=== PATIENT | female | born 1960 | race Caucasian/White ===

== ENCOUNTER 2022-09-14 13:54 | Inpatient (IN) | payer OTHER, SELFPAY ==
[2022-09-14] VITALS (49 sets, daily range): BP systolic 101–180; BP diastolic 68–140; PULSE 66–103; RESP 15–83; TEMP 36.3–36.6; O2SAT 68–100; BMI 33.2
--- NOTE | ~2022-09-14 | US_ITS ---
EXAMINATION: US right upper quadrant DATE: 09/14/2022 14:36 INDICATION: Right upper quadrant abdominal pain TECHNIQUE: Multiple grayscale and Doppler ultrasound images of the abdomen were obtained. COMPARISON: CT abdomen and pelvis dated 07/28/2017 FINDINGS: The visualized portion of the pancreatic body appears normal. The majority of the pancreas including the head and tail are obscured. Liver has normal echogenicity and contour, with a smooth surface. No liver lesion identified. No intrahepatic biliary duct dilation suspected. Portal venous flow was seen in the hepatopetal, normal direction and has normal Doppler waveform. Visualized proximal inferior v rhona cava is normal. There is a small amount of non shadowing hypoechoic sludge in the dependent aspec t of the otherwise normal and nondilated gallbladder. There is no shadowing cholelithiasis. The commo n bile duct measures 4-5 mm, which is normal. Sonographic Strickland sign was reported as negative by the product marketing coordinator. IMPRESSION: 1. Small amount of gallbladder sludge without shadowing cholelithiasis. Otherwise unremarkable right upper quadrant ultrasound. Reviewed, dictated and finalized at location A. IMPRESSION: 1. Small amount of gallbladder sludge without shadowing cholelithiasis. Otherwi se unremarkable right upper quadrant ultrasound.
--- NOTE | ~2022-09-14 | XR_ITS ---
EXAMINATION: XR chest 2V DATE: 09/14/2022 14:49 INDICATION: Cough TECHNIQUE: Frontal and lateral views of the chest are obtained COMPARISON: 08/25/2018 FINDINGS: There is a mild diffuse interstitial pattern. No pleural effusion or pneumothorax. The card iomediastinal silhouette is normal. There is mild thoracic spondylosis. IMPRESSION: 1. Mild diffuse interstitial pattern which could reflect mild pulmonary edema. Reviewed, dictated and finalized at location B.
--- NOTE | 2022-09-14 14:01 | ED.ABDPAIN ---
HPI - Abdominal Pain General Chief Complaint: Abdominal Pain Stated Complaint: upper abdominal pain and low Sp02 Time Seen by Provider: 09/14/22 14:01 Source: patient, EMS and RN notes reviewed Mode of arrival: EMS Limitations: no limitations History of Present Illness HPI narrative: patient brought in by ambulance with complaints of right upper quadrant abdominal pain it has been intermittent for several weeks. She thinks she is having a gallbladder attack. She appears to be in respiratory distress. She says that she has not been to a doctor in several years continues to smoke at least 1 pack per day. MD elicited complaint: abdominal pain Pertinent past history: constipation Onset (ago): week(s) Pain Consistency: intermittent Location: RUQ Severity: moderate Quality: cramping, aching and dull Radiation: none Migration to: no migration Exacerbating factors: eating Relieving factors: nothing Context: confirms history of similar episodes Associated symptoms: denies other symptoms Related Data Home Medications Medication Instructions Recorded Confirmed No Home Medications 09/14/22 09/14/22 Allergies Allergy/AdvReac Type Severity Reaction Status Date / Time No Known Allergies Allergy Verified 09/14/22 14:12 Review of Systems Review of Systems: All systems reviewed & are unremarkable except as noted in HPI and below Respiratory: Respiratory: Reports cough and Reports dyspnea ( she says been going on for months) PMFSH Past Medical History Medical History (Updated 09/14/22 @ 16:48 by Santhosh Castellanos MD) No active medical problems Surgical History Surgical History (Updated 09/14/22 @ 14:14 by Santhosh Castellanos MD) Bowel obstruction History of appendectomy Social History Social History (Updated 09/14/22 @ 14:14 by Santhosh Castellanos MD) Smoking packs per day: 1 Smoking cigarettes per day: 20.0 Smoking status: Current every day smoker Tobacco type: cigarettes Second hand tobacco smoke exposure: Yes Alcohol intake: never Substance use: never Substance use type: does not use Lack of Transportation: No Lack of Food: Never True Current Housing: I Have Housing Concerned About Future Housing: No Difficulty Paying Gas/Electric Bills: No Difficulty Paying for Meds: No Currently Unemployed: No Education: Trade/Vocational Certificate Difficulty w/ Childcare or Family Care: No Spiritual care concerns: No Exam Const: General: healthy appearing, no acute distress and alert Nutritional Appearance: well nourished Orientation/consciousness: patient oriented x3 HENMT: Head: normal to inspection Ears: external ears normal Face/Nose/Sinus: Normal external nose present Face and sinus: normal facial exam Mouth: Yes moist mucous membranes Eyes: Conjunctivae: conjunctivae normal Pupils: Equal, round and reactive pupils present EOM: EOMs intact bilaterally Neck: Neck: normal visual inspection Resp: Effort & Inspection: tachypneic Auscultation: diminished lung sounds ( short air exchange due to cough) Cardio: Rate: regular rate Rhythm: regular rhythm GI: GI Palp: Yes Soft to palpation, Yes Tenderness to palpation present (GI) ( moderate right upper quadrant positive Strickland sign) and Yes Guarding due to palpation present (GI) ( moderate RUQ) Auscultation: normal bowel sounds Back/Spine/Pelvis: Cervical Spine: cervical ROM normal Thoracic/Lumbar Spine: thoraco-lumbar ROM normal Skin: General skin exam: normal color Rashes: no rashes Neuro: General: patient oriented x3, moves all extremities, no focal motor deficits and CN's II-XI intact bilaterally Speech: normal speech Gait exam (Neuro): Normal gait present Extrem: General: normal to inspection and no clubbing, cyanosis or edema Psych: Mental Status: mental status grossly normal Affect: normal affect Attitude: cooperative Course Course Emergency Course: patient given Solu-Medrol 125 mg, Lasix 50 mg, DuoNeb, s
[2022-09-14] MEDS: IPRATROPIUM 0.5 MG/ALBUTEROL SULFATE 2.5 MG AMPUL.NEB 3 ML INHALATION ×2 (14:56→18:39)
[2022-09-14 15:06] LABS: Basophils Absolute Auto 0.07 K/mm3 (0.00-0.10); Basophils Percent Auto 0.5 % (0.0-1.0); Eosinophils Absolute Auto 0.09 K/mm3 (0.02-0.50); Eosinophils Percent Auto 0.6 % (1.0-6.0); Hematocrit 50.4 % (35.0-49.0); Hemoglobin 16.1 g/dL (12.0-15.0); Immature Granulocyte Absolute 0.08 K/mm3 (0.00-0.00); Immature Granulocyte Percent A 0.5 % (0.0-0.0); Lymphocytes Absolute Auto 2.79 K/mm3 (1.10-4.50); Lymphocytes Percent Auto 18.6 % (18.0-42.0); Mean Corpuscular HGB Conc 31.9 g/dL (32.0-36.0); Mean Corpuscular Hemoglobin 32.3 pg (27.0-31.0); Mean Platelet Volume 9.8 fl (9.2-11.8); Monocytes Absolute Auto 1.57 K/mm3 (0.10-0.90); Monocytes Percent Auto 10.5 % (2.0-11.0); Neutrophils Absolute Auto 10.4 K/mm3 (1.7-7.2); Neutrophils Percent Auto 69.3 % (50.0-70.0); Platelet Count Result 335 K/mm3 (150-420); Red Blood Count 4.99 M/mm3 (4.20-5.40); Red Cell Distribution Width 13.7 % (11.6-14.4)
[2022-09-14 15:21] LABS: Alanine Aminotransferase 103 U/L (14-59); Albumin Level 3.2 g/dL (3.4-5.0); Alkaline Phosphatase 75 U/L (46-116); Anion Gap 6 mmol/L (8-16); Aspartate Amino Transferase 33 U/L (15-37); Bilirubin,Total 0.3 mg/dL (0.00-1.00); Blood Urea Nitrogen 17 mg/dL (7-18); Calcium 9.2 mg/dL (8.5-10.1); Carbon Dioxide 34 mmol/L (21-32); Chloride 101 mmol/L (98-108); Estimated Glomerular Filt Rate > 60; Glucose 110 mg/dL (70-99); Osmolality Calculated 294 mOsm/kg (285-295); Potassium 4.1 mmol/L (3.5-5.1); Sodium 141 mmol/L (136-145); Total Protein 7.7 g/dL (6.4-8.2)
[2022-09-14 15:30] LABS: Amylase 36 U/L (25-115); Lipase 19 U/L (16-77); NT Pro B Type Natriuretic Pept 1627 pg/mL (0-125)
[2022-09-14 15:39] LABS: Base Excess ABG -3.3 mmol/L (0-2); HCO3 ABG 27.5 mmol/L (23-29); Oxygen Content ABG 19.1 %vol (16.0-22.0); Oxygen Saturation ABG 87.9 % (95-97); Oxyhemoglobin 81.1 % (94-100); PCO2 ABG 74.9 mmHg (35-45); PO2 ABG 61.6 mmHg (80-90); Total Hemoglobin 16.8 g/dL (12.0-18.0); pH ABG 7.18 (7.35-7.45)
[2022-09-14 15:40] LABS: Device NASAL CANNULA; Modified Allen's Test Pass; Site Drawn RIGHT RADIAL
[2022-09-14] MEDS: FUROSEMIDE INJ 40 MG/4 ML VIAL 60 MG IV PUSH (16:43)
[2022-09-14] MEDS: methylPREDNISolone SOD SUCC 125 MG VIAL IV PUSH (17:05)
[2022-09-14 17:09] LABS: Base Excess ABG -0.4 mmol/L (0-2); HCO3 ABG 28.2 mmol/L (23-29); Oxygen Content ABG 20.3 %vol (16.0-22.0); Oxygen Saturation ABG 94.2 % (95-97); Oxyhemoglobin 87.5 % (94-100); PCO2 ABG 62.5 mmHg (35-45); PO2 ABG 74.9 mmHg (80-90); Total Hemoglobin 16.5 g/dL (12.0-18.0); pH ABG 7.27 (7.35-7.45)
[2022-09-14 17:10] LABS: Device BIPAP; Modified Allen's Test Pass; Site Drawn LEFT RADIAL
[2022-09-14 17:11] LABS: Expiratory Pressure 3 cmH2O; Inspiratory Pressure 1 cmH2O
--- NOTE | 2022-09-14 18:49 | ADMGEN ---
This patient, Jerri Og, was admitted to 2nd Floor Room 209-1. Patient/family oriented to hospital policies and general routines including ID bracelet, bed and alarms, visiting hours, pain management, procedures, bathroom and other care routines, personal items, smoking policy, room service/diet, and visiting hours. Information on how to activate the Rapid Response Team has been discussed. Patient/Family are encouraged to report perceived risks to care and to ask questions if they do not understand what they are told or what they should do.
--- NOTE | 2022-09-14 19:18 | PC.NURSE ---
pt's son has called multiple times and been verbally aggressive with nursing staff and recreation instructor staff, pt states he is most likely drunk and will be coming up to see her, pt and family are aware that if visitors are uncooperative or aggressive with staff they will be asked to leave, rt up to put pt back on bipap, brandie aware of sepsis screening and requests rt try to wean pt off bipap tonight if possible
--- NOTE | 2022-09-14 20:21 | PC.NURSE ---
Pt's son Angel is repeatedly calling to speak w/the pt about the condition of the pt's dog. This RN spoke w/Teresa, the pt's emergency contact, and the daughter stated the dog is fine, but is old. Angel may be calling to get the keys to the pt's truck per pt's daughter. Son is an alcoholic per family. Teresa stated if we have any issues w/ Angel to contact the police. The pt's daughter will be at the hospital in the morning and to contact her if any issues arise w/the pt.
[2022-09-14 21:25] LABS: Base Excess ABG 6.3 mmol/L (0-2); HCO3 ABG 36.5 mmol/L (23-29); Oxygen Content ABG 20.4 %vol (16.0-22.0); Oxygen Saturation ABG 92.5 % (95-97); Oxyhemoglobin 87.6 % (94-100); PO2 ABG 68.8 mmHg (80-90); Total Hemoglobin 16.6 g/dL (12.0-18.0); pH ABG 7.29 (7.35-7.45)
[2022-09-14 21:27] LABS: Device BIPAP; Modified Allen's Test Pass; Site Drawn LEFT RADIAL
--- NOTE | 2022-09-14 21:33 | PC.NURSE ---
This RN notified Emery Solis NP of pt's critical PCO2 level.
--- NOTE | 2022-09-14 21:49 | PC.NURSE ---
Emery Solis contacted [facility] to transfer pt. Weston is to receive report on pt from Dr. Castellanos, the MD who admitted pt earlier. ED staff notified that they will receive a call.
--- NOTE | 2022-09-14 22:02 | PC.NURSE ---
Pt's daughter Teresa has been notified of pt's status. Daughter informed this RN once we have further information to contact her.
--- NOTE | 2022-09-14 22:46 | PM.DS ---
DS: Admitting Diagnosis Discharge Date 09/14/2022 Admitting Diagnosis respiratory distress DS: Summary Hospital Course Reason for hospitalization: Patient came in for abdominal pain was admitted due to hypoxia. Patient is being transferred to [facility] . Pleases see Emergency room not as I have not see or accessed patient as she was transferred prior to my arrival. Hospital Course: hypoxia Time Spent with Patient Time attestation: Total time spent providing and/or coordinating discharge services: DS: Data Data Completed and Pending Labs on day of discharge: Labs from last 24 hours 09/14/22 09/14/22 09/14/22 21:23 16:57 15:35 WBC RBC Hgb Hct MCV MCH MCHC RDW Plt Count MPV Immature Gran % (Auto) Neut % (Auto) Lymph % (Auto) Jenkins % (Auto) Eos % (Auto) Baso % (Auto) Lymph # (Auto) Jenkins # (Auto) Eos # (Auto) Baso # (Auto) Abs Immat Gran (auto) Absolute Neuts (auto) Absolute Nucleated RBC Nucleated RBC % Puncture Site Left radial Left radial Right radial ABG pH 7.29 L 7.27 L 7.18 L ABG pCO2 78.0 H* 62.5 H 74.9 H* ABG pO2 68.8 L 74.9 L 61.6 L ABG PO2/FiO2 Ratio Not Reportable Not Reportable Not Reportable ABG HCO3 36.5 H 28.2 27.5 ABG O2 Saturation 92.5 L 94.2 L 87.9 L ABG O2 Content 20.4 20.3 19.1 ABG Base Excess 6.3 H -0.4 L -3.3 L A-a Gradient Not Reportable Not Reportable Not Reportable Oxyhemoglobin 87.6 L 87.5 L 81.1 L Total Hemoglobin 16.6 16.5 16.8 O2 Delivery Device Bipap Bipap Nasal cannula O2 Liters/Min Not Reportable 100.0 3.0 Expiratory Pressure Not Reportable 3 Inspiratory Pressure Not Reportable 1 Sodium Potassium Chloride Carbon Dioxide Anion Gap BUN Creatinine Estim Creat Clear Calc Estimated GFR Glucose Calculated Osmolality Calcium Magnesium Total Bilirubin AST ALT Alkaline Phosphatase C-Reactive Protein NT-Pro-B Natriuret Pep Total Protein Albumin Amylase Lipase 09/14/22 15:01 WBC 15.0 H RBC 4.99 Hgb 16.1 H Hct 50.4 H MCV 101.0 MCH 32.3 H MCHC 31.9 L RDW 13.7 Plt Count 335 MPV 9.8 Immature Gran % (Auto) 0.5 H Neut % (Auto) 69.3 Lymph % (Auto) 18.6 Jenkins % (Auto) 10.5 Eos % (Auto) 0.6 L Baso % (Auto) 0.5 Lymph # (Auto) 2.79 Jenkins # (Auto) 1.57 H Eos # (Auto) 0.09 Baso # (Auto) 0.07 Abs Immat Gran (auto) 0.08 H Absolute Neuts (auto) 10.4 H Absolute Nucleated RBC 0.00 Nucleated RBC % 0.0 Puncture Site ABG pH ABG pCO2 ABG pO2 ABG PO2/FiO2 Ratio ABG HCO3 ABG O2 Saturation ABG O2 Content ABG Base Excess A-a Gradient Oxyhemoglobin Total Hemoglobin O2 Delivery Device O2 Liters/Min Expiratory Pressure Inspiratory Pressure Sodium 141 Potassium 4.1 Chloride 101 Carbon Dioxide 34 H Anion Gap 6 L BUN 17 Creatinine 0.67 Estim Creat Clear Calc Not Reportable Estimated GFR > 60 Glucose 110 H Calculated Osmolality 294 Calcium 9.2 Magnesium 2.0 Total Bilirubin 0.3 AST 33 ALT 103 H Alkaline Phosphatase 75 C-Reactive Protein 5.0 H NT-Pro-B Natriuret Pep 1627 H Total Protein 7.7 Albumin 3.2 L Amylase 36 Lipase 19 Discharge Plan Discharge Attending physician on discharge: Maverick Ruggiero Consulting providers: Emery Solis; Misael Wells; Juan Arambula Discharging Clinician: Emery Solis Anticipated Discharge Date/Time: 09/14/22 22:44 Patient Disposition: Acute Care [facility] Discharge Instructions: Transfer to [facility] Respiratory distress Bipap Date of admission: 09/14/22 17:12 Primary Care Provider: Burton Charles Admitting Provider: Maverick Ruggiero Attending physician on admission: Maverick Ruggiero Condition: Serious
--- NOTE | 2022-09-14 22:56 | PC.NURSE ---
Report given to receiving RN, Aida, at [facility]. Aida LAGUERRE told this RN the pt is to be admitted to room 202 IMU at [place].
[2022-09-14] MEDS: methylPREDNISolone SOD SUCC 40 MG VIAL IV PUSH (23:05)
--- NOTE | 2022-09-15 00:25 | PC.NURSE ---
[facility] arrived at 00:05 09/15/2022 to [facility]. Pt's belongings including her glasses, phone, wallet, etc placed in pt belongings bag and given to pt for departure.
--- NOTE | 2022-09-15 00:30 | PC.NURSE ---
Pt's daughter, Teresa, notified of pt's departure to [facility] and was notified of the room number. Teresa verbalized appreciation of keeping her mother's condition current w/her.
[2022-09-15 00:33] VITALS: O2SAT 96
== END 2022-09-15 00:05 | disposition short-term general hospital (02) | DRG 144 ==
LOC: CHSED 16:48 → CHS2ND 17:21
PROVIDERS: Nurse Practitioner Family; Admitting Provider Internal Medicine; Emergency Provider Emergency Medicine; PCP Internal Medicine; Visit Provider Internal Medicine
DX: R10.10 Upper abdominal pain, unspecified (principal); K82.8 Other specified diseases of gallbladder; I50.9 Heart failure, unspecified; F17.210 Nicotine dependence, cigarettes, uncomplicated; R06.03 Acute respiratory distress; R09.02 Hypoxemia
CPT/HCPCS: 36415; 36600; 71046; 76705; 80053; 82150; 82805; 83690; 83735; 83880; 85025; 86140; 94002; 94640; 96374; 96375; 99285; J1940; J2920; J2930

== ENCOUNTER 2022-09-15 00:52 | Inpatient (IN) | payer OTHER, SELFPAY ==
[2022-09-15] VITALS (32 sets, daily range): BP systolic 113–149; BP diastolic 65–97; PULSE 53–97; RESP 20–32; TEMP 36.1–36.8; O2SAT 88–100; BMI 33.5; BMI 34.3
--- NOTE | ~2022-09-15 | XR_ITS ---
Portable chest x-ray Comparison: 09/14/2022 Clinical History: COPD Findings: There is probable COPD pattern of the lungs. Mild bibasilar pulmonary edema is a potential consideration. No pleural effusion or pneumothorax. Cardiomediastinal silhouette is stable. Bones a nd soft tissues are unremarkable. Impression: COPD. Possible mild bibasilar pulmonary edema. Reviewed, dictated and finalized at location . Impression: COPD. Possible mild bibasilar pulmonary edema.
--- NOTE | 2022-09-15 00:52 | ADMGEN ---
This patient, Jerri Og, was admitted to IMU Room 202-01. Patient/family oriented to hospital policies and general routines including ID bracelet, bed and alarms, visiting hours, pain management, procedures, bathroom and other care routines, personal items, smoking policy, room service/diet, and visiting hours. Information on how to activate the Rapid Response Team has been discussed. Patient/Family are encouraged to report perceived risks to care and to ask questions if they do not understand what they are told or what they should do.
--- NOTE | 2022-09-15 01:01 | PM.IMHP ---
H&P: HPI History of Present Illness Date/Time: 09/15/22 01:01 Chief Complaint: SOB Narrative: This is 62 yo female with PMHx significant for Tobacco dependence, does not see a doctor, went ED at [facility] due to abdominal pain, found to be hypoxic, history is mainly obtained from ED records as patient is on BiPAP currently. Patient was transferred to [facility] due to continuous BiPAP needs. An ABG was significant for ph 7.2 pCo2 78 pO2 68. Ptient has been placed in IMU. EXAMINATION: XR chest 2V DATE: 09/14/2022 14:49 INDICATION: Cough TECHNIQUE: Frontal and lateral views of the chest are obtained COMPARISON: 08/25/2018 FINDINGS: There is a mild diffuse interstitial pattern. No pleural effusion or pneumothorax. The cardiomediastinal silhouette is normal. There is mild thoracic spondylosis. IMPRESSION: 1. Mild diffuse interstitial pattern which could reflect mild pulmonary edema. EXAMINATION: US right upper quadrant DATE:? 09/14/2022 14:36 INDICATION: Right upper quadrant abdominal pain TECHNIQUE: Multiple grayscale and Doppler ultrasound images of the abdomen were obtained. COMPARISON: CT abdomen and pelvis dated 07/28/2017 FINDINGS: The visualized portion of the pancreatic body appears normal. The majority of the pancreas including the head and tail are obscured. Liver has normal echogenicity and contour, with a smooth surface. No liver lesion identified. No intrahepatic biliary duct dilation suspected. Portal venous flow was seen in the hepatopetal, normal direction and has normal Doppler waveform. Visualized proximal inferior vena cava is normal. There is a small amount of non shadowing hypoechoic sludge in the dependent aspect of the otherwise normal and nondilated gallbladder. There is no shadowing cholelithiasis. The common bile duct measures 4-5 mm, which is normal. Sonographic Strickland sign was reported as negative by the chief solution architect. IMPRESSION: 1. Small amount of gallbladder sludge without shadowing cholelithiasis. Otherwise unremarkable right upper quadrant ultrasound. Review of Systems Review of Systems: ROS unobtainable: Yes unobtainable due to medical condition (Respiratory failure BIPAP on) [facility] Past Medical History Medical History (Updated 09/15/22 @ 01:57 by Elliot Mckeon MD) No active medical problems Surgical History Surgical History (Updated 09/14/22 @ 14:14 by Santhosh Castellanos MD) Bowel obstruction History of appendectomy Family History Family History (Updated 09/15/22 @ 01:22 by Davonte Pringle RN) Other Unknown family medical history Social History Social History (Updated 09/14/22 @ 14:14 by Santhosh Castellanos MD) Smoking packs per day: 1 Smoking cigarettes per day: 20.0 Years smoked: 50 Smoking pack-years: 50.00 Smoking status: Current every day smoker Tobacco type: cigarettes Second hand tobacco smoke exposure: Yes Alcohol intake: never Substance use: never Substance use type: does not use Lack of Transportation: No Lack of Food: Never True Current Housing: I Have Housing Concerned About Future Housing: No Difficulty Paying Gas/Electric Bills: No Difficulty Paying for Meds: No Currently Unemployed: No Education: Decline to Answer Difficulty w/ Childcare or Family Care: No Spiritual care concerns: No Meds Home Medications and Allergies Home Medications Medication Instructions Recorded Confirmed Type Daily Vitamins for Women 1 tablet PO DAILY 09/15/22 09/15/22 History ibuprofen 200 mg PO DAILY 09/15/22 09/15/22 History Allergies Allergy/AdvReac Type Severity Reaction Status Date / Time No Known Allergies Allergy Verified 09/14/22 14:12 Exam Narrative: Patient sitting in bed BiPAP on Const: General: comfortable, no acute distress, well developed, alert, awake, average body habitus and other (albeit on BiPAP on 60 % FiO2) Nutritional Appearance: obese Orientation/conscio
[2022-09-15] MEDS: IPRATROPIUM BR 0.02% INH SOLN 0.5 MG/2.5 ML VIAL INHALATION ×4 (01:27→20:07)
[2022-09-15] MEDS: ALBUTEROL SULFATE NEB 2.5 MG/3 ML INH INHALATION ×4 (01:28→20:08)
[2022-09-15] MEDS: LORazepam INJ (*CRX) 2 MG/ML VIAL 1 MG IV PUSH (01:32)
[2022-09-15] MEDS: MORPHINE SULFATE (*CRX) 2 MG/ML INJ 1 MG IV PUSH (01:33)
[2022-09-15 02:32] LABS: Appearance Urine Clear (Clear); Bacteria Urine None Seen /hpf; Bilirubin Urine Negative (Negative); Blood Urine Negative (Negative); Color Urine Yellow (Yellow); Glucose Urine UA Negative (Negative); Ketones Urine Negative (Negative); Leukocyte Esterase Ur Negative LEU/UL (Negative); Nitrate Urine Negative (Negative); Protein Urine 1+ mg/dL (Negative); RBC Urine 0-2 /hpf (0-2); Specific Grav Ur 1.012 (1.001-1.035); Squamous Epithelial Cell Urine None seen /hpf (Few); Urobilinogen Urine 0.2 mg/dL (<2.0); WBC Urine 0-5 /hpf; pH Urine 5.5 (5.0-9.0)
[2022-09-15 02:53] LABS: Add Urine Microscopic? YES
[2022-09-15 03:16] LABS: Alveolar/Arterial O2 Gradient 261.1 mmHg; Base Excess ABG 6.4 mEq/l (+/-2.0); Carboxyhemoglobin 2.5 % THb (0-2.0); Fractional Inspired Oxygen 60 %; HCO3 ABG 36.5 mEq/l (22.0-26.0); Methemoglobin ABG 0.5 %THb (0-1.5); Oxygen Content ABG 22.2 %vol (16.0-22.0); Oxygen Saturation ABG 94.5 % (95.0-100.0); Oxyhemoglobin 92.4 % THb (90.0-100.0); PO2 ABG 82.4 mmHg (80.0-100.0); PO2 FiO2 Ratio Arterial Blood 1.37 %; Reduced Hemoglobin 4.6 %THb (0-5.0); Total Hemoglobin 17.1 g/dL (12.0-18.0)
[2022-09-15 03:19] LABS: Device OTHER DEVICE; Modified Allen's Test Pass; PCO2 ABG 76.6 mmHg (35.0-45.0); Site Drawn LEFT RADIAL; pH ABG 7.296 (7.350-7.450)
[2022-09-15 04:19] LABS: Basophils Percent Auto 0.2 % (0.2-1.2); Hematocrit 51.5 % (37.0-47.0); Hemoglobin 16.3 g/dL (12.0-15.0); Immature Granulocyte Absolute 0.03 K/mm3 (0.00-0.031); Immature Granulocyte Percent A 0.3 % (0-0.5); Lymphocytes Absolute Auto 0.64 K/mm3 (0.9-3.2); Lymphocytes Percent Auto 6.2 % (18.3-44.2); Mean Corpuscular HGB Conc 31.7 g/dl (32-36); Mean Corpuscular Hemoglobin 32.2 pg (26-34); Mean Corpuscular Volume 101.8 fl (80-100); Monocytes Absolute Auto 0.1 K/mm3 (0.1-0.6); Monocytes Percent Auto 0.8 % (2.6-8.5); Neutrophils Absolute Auto 9.5 K/mm3 (1.3-6.7); Neutrophils Percent Auto 92.5 % (45.5-73.1); Platelet Count Result 312 k/mm3 (150-375); Red Blood Count 5.06 M/mm3 (4.2-5.4); Red Cell Distribution Width 14.2 % (11.5-14.5); White Blood Count 10.3 K/mm3 (4.5-10.0)
[2022-09-15 04:25] LABS: Anion Gap 5 mmol/L (8-16); Blood Urea Nitrogen 19 mg/dL (7-17); Calcium 8.5 mg/dL (8.4-10.2); Carbon Dioxide 32 mmol/L (22-30); Chloride 101 mmol/L (98-107); Estimated CRCL calculation 76 ml/min; Estimated Glomerular Filt Rate > 60; Glucose 178 mg/dL (65-110); Magnesium 2.4 mg/dL (1.6-2.3); Phosphorus 5.1 mg/dL (2.5-4.5); Potassium 4.3 mmol/L (3.4-5.0); Sodium 138 mmol/L (137-145)
[2022-09-15 06:43] LABS: Base Excess ABG 4.7 mEq/l (+/-2.0); Fractional Inspired Oxygen 60 %; HCO3 ABG 33.8 mEq/l (22.0-26.0); Methemoglobin ABG 0.5 %THb (0-1.5); Oxygen Content ABG 22.2 %vol (16.0-22.0); Oxygen Saturation ABG 96.3 % (95.0-100.0); Oxyhemoglobin 94.2 % THb (90.0-100.0); PO2 ABG 94.5 mmHg (80.0-100.0); PO2 FiO2 Ratio Arterial Blood 1.58 %; Reduced Hemoglobin 3.3 %THb (0-5.0); Total Hemoglobin 16.7 g/dL (12.0-18.0); pH ABG 7.306 (7.350-7.450)
[2022-09-15 06:44] LABS: Device OTHER DEVICE; Modified Allen's Test Pass; PCO2 ABG 69.4 mmHg (35.0-45.0); Site Drawn LEFT RADIAL
[2022-09-15 06:54] LABS: Lactic Acid Reflex 0.8 mmol/L (0.7-2.0)
[2022-09-15] MEDS: ENOXAPARIN 40 MG/0.4 ML SYRINGE SUB-Q (08:35)
[2022-09-15] MEDS: FUROSEMIDE INJ 40 MG/4 ML VIAL IV PUSH (09:26)
--- NOTE | 2022-09-15 10:00 | PC.NURSE ---
Informed by secretary of police that Dr Mace is only accepting phone consults at this time. Dr Isaacs informed, and said that pulmonology could see the patient Saturday.
--- NOTE | 2022-09-15 10:25 | PM.IMPN ---
Progress Note: A&P Assessment and Plan (1) Acute respiratory failure with hypoxia and hypercapnia: Code(s): J96.01 - Acute respiratory failure with hypoxia; J96.02 - Acute respiratory failure with hypercapnia Status: Acute Assessment and Plan: Admit to IMU Currently on BiPAP/AVAPS Continuous pulse ox Continuous telemetry Pulmonology consult (2) Sludge in gallbladder: Code(s): K82.8 - Other specified diseases of gallbladder Status: Acute Assessment and Plan: Consider general surgery consult Supportive care (3) CHF (congestive heart failure): Qualifiers: Heart failure chronicity: acute Heart failure type: unspecified Qualified Code(s): I50.9 - Heart failure, unspecified Code(s): I50.9 - Heart failure, unspecified Status: Acute Assessment and Plan: 2DECHO in am diureses as needed daily I/O daily BMP (4) Respiratory distress: Code(s): R06.03 - Acute respiratory distress Status: Acute Assessment and Plan: On Bipap (5) Tobacco dependence: Code(s): F17.200 - Nicotine dependence, unspecified, uncomplicated Status: Acute Assessment and Plan: Nicotine patch as needed Subjective Date/time seen: 09/15/22 10:25 Interval history: No complaints Exam Narrative: Patient sitting in bed BiPAP on Const: General: comfortable, no acute distress, well developed, alert, awake, average body habitus, obese and other (albeit on BiPAP on 60 % FiO2) Nutritional Appearance: average body habitus and obese Orientation/consciousness: patient oriented x3 HENMT: Head: normal to inspection, normocephalic and atraumatic Ears: hearing grossly normal bilaterally Face/Nose/Sinus: normal facial exam Face and sinus: normal facial exam Eyes: General: appearance normal, both eyes and all related structures Pupils: Equal, round and reactive pupils present EOM: EOMs intact bilaterally Neck: Neck: full ROM, no lymphadenopathy and no JVD Thyroid: thyroid normal Lymphatic: no lymphadenopathy noted Resp: Effort & Inspection: normal respiratory effort, no audible wheezes, no cough, not labored, no paradoxical thoraco-abdom movements, respiratory distress (on BiPAP), no tripod positioning and symmetric chest movement Auscultation: clear to auscultation bilaterally Cardio: Jugular venous distension: no JVD Rate: regular rate Rhythm: regular rhythm Heart sounds: S1 normal heart sound present and S2 normal heart sound present GI: Inspection: obesity : General: Yes deferred Skin: Rashes: no rashes Wounds: no wounds Neuro: General: patient oriented x3, CN's II-XI intact bilaterally and Unable to assess gait Cranial nerves: Yes CN's II-XII intact bilaterally and Yes Equal, round and reactive pupils present Cognition (Neuro): normal cognition Speech: normal speech Gait exam (Neuro): Unable to assess gait Motor exam (neuro): 5/5 motor strength present throughout Extrem: General: normal to inspection, full ROM and pedal edema Objective Data Vital Signs Vital Signs: Vital Signs - 24 hr 09/15/22 01:00 09/15/22 01:32 09/15/22 01:34 Temperature 97.2 F L Pulse Rate 88 77 77 Respiratory Rate 27 H 25 H 26 H Blood Pressure 132/97 H Pulse Oximetry 99 98 Oxygen Delivery BiPAP Fraction of Inspired Oxygen 09/15/22 01:10 09/15/22 01:09 09/15/22 02:00 Temperature Pulse Rate 88 88 84 Respiratory Rate 27 H Blood Pressure Pulse Oximetry 99 Oxygen Delivery BiPAP Fraction of Inspired Oxygen 60 09/15/22 04:00 09/15/22 04:00 09/15/22 04:35 Temperature 97 F L Pulse Rate 78 76 81 Respiratory Rate 25 H 26 H Blood Pressure 113/65 Pulse Oximetry 98 Oxygen Delivery Fraction of Inspired Oxygen 09/15/22 04:00 09/15/22 05:00 09/15/22 05:41 Temperature Pulse Rate 76 53 L 72 Respiratory Rate 25 H 25 H Blood Pressure Pulse Oximetry 98 95 Oxygen Delivery BiPAP BiPAP Fraction o
--- NOTE | 2022-09-15 10:28 | PM.IMPN ---
Progress Note: A&P Assessment and Plan (1) Acute respiratory failure with hypoxia and hypercapnia: Code(s): J96.01 - Acute respiratory failure with hypoxia; J96.02 - Acute respiratory failure with hypercapnia Status: Acute Assessment and Plan: Admit to IMU Currently on BiPAP/AVAPS -currently off Will recheck ABG. Solu-Medrol. Continuous pulse ox Continuous telemetry Pulmonology consult (2) Sludge in gallbladder: Code(s): K82.8 - Other specified diseases of gallbladder Status: Acute Assessment and Plan: Consider general surgery consult Supportive care (3) CHF (congestive heart failure): Qualifiers: Heart failure chronicity: acute Heart failure type: unspecified Qualified Code(s): I50.9 - Heart failure, unspecified Code(s): I50.9 - Heart failure, unspecified Status: Acute Assessment and Plan: 2DECHO in am diureses as needed daily I/O daily BMP (4) Respiratory distress: Code(s): R06.03 - Acute respiratory distress Status: Acute Assessment and Plan: On Bipap (5) Tobacco dependence: Code(s): F17.200 - Nicotine dependence, unspecified, uncomplicated Status: Acute Assessment and Plan: Nicotine patch as needed Subjective Date/time seen: 09/15/22 10:28 Interval history: No new complaints. Patient is off BiPAP appears to be breathing okay. Exam Narrative: Patient sitting in bed BiPAP on Const: General: comfortable, no acute distress, well developed, alert, awake, average body habitus, obese and other (albeit on BiPAP on 60 % FiO2) Nutritional Appearance: average body habitus and obese Orientation/consciousness: patient oriented x3 HENMT: Head: normal to inspection, normocephalic and atraumatic Ears: hearing grossly normal bilaterally Face/Nose/Sinus: normal facial exam Face and sinus: normal facial exam Eyes: General: appearance normal, both eyes and all related structures Pupils: Equal, round and reactive pupils present EOM: EOMs intact bilaterally Neck: Neck: full ROM, no lymphadenopathy and no JVD Thyroid: thyroid normal Lymphatic: no lymphadenopathy noted Resp: Effort & Inspection: normal respiratory effort, no audible wheezes, no cough, not labored, no paradoxical thoraco-abdom movements, respiratory distress (on BiPAP), no tripod positioning and symmetric chest movement Auscultation: clear to auscultation bilaterally Cardio: Jugular venous distension: no JVD Rate: regular rate Rhythm: regular rhythm Heart sounds: S1 normal heart sound present and S2 normal heart sound present GI: Inspection: obesity : General: Yes deferred Skin: Rashes: no rashes Wounds: no wounds Neuro: General: patient oriented x3, CN's II-XI intact bilaterally and Unable to assess gait Cranial nerves: Yes CN's II-XII intact bilaterally and Yes Equal, round and reactive pupils present Cognition (Neuro): normal cognition Speech: normal speech Gait exam (Neuro): Unable to assess gait Motor exam (neuro): 5/5 motor strength present throughout Extrem: General: normal to inspection, full ROM and pedal edema Objective Data Vital Signs Vital Signs: Vital Signs - 24 hr 09/15/22 01:00 09/15/22 01:32 09/15/22 01:34 Temperature 97.2 F L Pulse Rate 88 77 77 Respiratory Rate 27 H 25 H 26 H Blood Pressure 132/97 H Pulse Oximetry 99 98 Oxygen Delivery BiPAP Fraction of Inspired Oxygen 09/15/22 01:10 09/15/22 01:09 09/15/22 02:00 Temperature Pulse Rate 88 88 84 Respiratory Rate 27 H Blood Pressure Pulse Oximetry 99 Oxygen Delivery BiPAP Fraction of Inspired Oxygen 60 09/15/22 04:00 09/15/22 04:00 09/15/22 04:35 Temperature 97 F L Pulse Rate 78 76 81 Respiratory Rate 25 H 26 H Blood Pressure 113/65 Pulse Oximetry 98 Oxygen Delivery Fraction of Inspired Oxygen 09/15/22 04:00 09/15/22 05:00 09/15/22 05:41 Temperature Pulse Rate 76 53 L 72 Respir
--- NOTE | 2022-09-15 13:26 | PM.CNGS ---
Assessment and Plan Assessment and plan (1) Sludge in gallbladder: Code(s): K82.8 - Other specified diseases of gallbladder Status: Acute Assessment and Plan: I have reviewed the ultrasound and discussed the findings with the patient. She has evidence of gallbladder sludge but no evidence of gallstones or cholecystitis. This does not need to be treated urgently or even worked up further at this time. Her respiratory difficulties would make her very poor surgical candidate. I would recommend a low-fat diet and avoid surgery until she has quit smoking and has some improvement and her pulmonary function. No surgical follow-up needed until these parameters have been met. Will sign off. (2) Tobacco dependence: Code(s): F17.200 - Nicotine dependence, unspecified, uncomplicated Status: Acute (3) Acute respiratory failure with hypoxia and hypercapnia: Code(s): J96.01 - Acute respiratory failure with hypoxia; J96.02 - Acute respiratory failure with hypercapnia Status: Acute History of Present Illness Consult details Consult date: 09/15/22 Reason for consult: other (Gallbladder sludge) Requesting physician: Scott Isaacs MD Narrative: This is a 62-year-old woman who I am asked to see for gallbladder sludge. She presented to the emergency department in [place] yesterday for respiratory difficulties. She was transferred to [facility] for further treatment. She was experiencing some upper abdominal pain and ultrasound showed evidence of gallbladder sludge without evidence of acute cholecystitis. Her liver and pancreatic enzymes were normal. She is still having a lot of respiratory difficulties and is retaining CO2. She is on continuous BiPAP at this time. Full history is somewhat difficult to obtain due to her breathing difficulties. Review of Systems Review of Systems: All systems reviewed & are unremarkable except as noted in HPI and below Constitutional: Constitutional: Denies chills and Denies fever(s) Eyes: Eyes: Denies change in vision ENT: Denies hearing loss, Denies neck pain and Denies sore throat Cardiovascular: Cardiovascular: Denies chest pain and Reports dyspnea Respiratory: Respiratory: Denies cough, Reports dyspnea and Denies wheezing Gastrointestinal: Gastrointestinal: Reports as per HPI Genitourinary: Genitourinary: Denies hematuria and Denies dysuria Musculoskeletal: Musculoskeletal: Denies arthralgias, Denies joint swelling and Denies neck pain Allergic/Immunologic: Allergic/Immunologic: Denies wheezing [facility] Past Medical History Medical History (Updated 09/15/22 @ 01:57 by Elliot Mckeon MD) No active medical problems Surgical History Surgical History (Updated 09/14/22 @ 14:14 by Santhosh Castellanos MD) Bowel obstruction History of appendectomy Family History Family History (Updated 09/15/22 @ 01:22 by Davonte Pringle RN) Other Unknown family medical history Social History Social History (Updated 09/14/22 @ 14:14 by Santhosh Castellanos MD) Smoking packs per day: 1 Smoking cigarettes per day: 20.0 Years smoked: 50 Smoking pack-years: 50.00 Smoking status: Current every day smoker Tobacco type: cigarettes Second hand tobacco smoke exposure: Yes Alcohol intake: never Substance use: never Substance use type: does not use Lack of Transportation: No Lack of Food: Never True Current Housing: I Have Housing Concerned About Future Housing: No Difficulty Paying Gas/Electric Bills: No Difficulty Paying for Meds: No Currently Unemployed: No Education: Decline to Answer Difficulty w/ Childcare or Family Care: No Spiritual care concerns: No Meds Home Medications and Allergies Home Medications Medication Instructions Recorded Confirmed Type Daily Vitamins for Women 1 tablet PO DAILY 09/15/22 09/15/22 History ibuprofen 200 mg PO DAILY 09/15/22 09/15/22 History Allergies Allergy/A
[2022-09-15 15:59] LABS: Alveolar/Arterial O2 Gradient 201.9 mmHg; Base Excess ABG 8.2 mEq/l (+/-2.0); Carboxyhemoglobin 1.3 % THb (0-2.0); Fractional Inspired Oxygen 50 %; HCO3 ABG 36.4 mEq/l (22.0-26.0); Methemoglobin ABG 0.5 %THb (0-1.5); Oxygen Content ABG 21.5 %vol (16.0-22.0); Oxygen Saturation ABG 95.3 % (95.0-100.0); Oxyhemoglobin 94.3 % THb (90.0-100.0); PO2 ABG 81.3 mmHg (80.0-100.0); PO2 FiO2 Ratio Arterial Blood 1.63 %; Reduced Hemoglobin 3.9 %THb (0-5.0); Total Hemoglobin 16.2 g/dL (12.0-18.0); pH ABG 7.365 (7.350-7.450)
[2022-09-15 16:01] LABS: Modified Allen's Test Pass; PCO2 ABG 65.2 mmHg (35.0-45.0); Site Drawn RIGHT RADIAL
[2022-09-15 16:02] LABS: Device NON-INVASIVE VENT; Non-Invasive Vent Rate 25 /MIN
[2022-09-15 16:03] LABS: Non-Invasive Expiratory Pressure 12 CMH2O
[2022-09-15] MEDS: methylPREDNISolone SOD SUCC 125 MG VIAL 60 MG IV PUSH (18:16)
[2022-09-15] MEDS: NICOTINE (*PBKC) 21 MG PATCH 1 PATCH TRANSDERM (23:17)
[2022-09-16] VITALS (21 sets, daily range): BP systolic 115–131; BP diastolic 57–77; PULSE 66–101; RESP 16–27; TEMP 36.1–36.8; O2SAT 90–100
[2022-09-16] MEDS: IPRATROPIUM BR 0.02% INH SOLN 0.5 MG/2.5 ML VIAL INHALATION ×4 (01:23→20:35)
[2022-09-16] MEDS: ALBUTEROL SULFATE NEB 2.5 MG/3 ML INH INHALATION ×4 (01:25→20:35)
[2022-09-16 06:38] LABS: Alveolar/Arterial O2 Gradient 127.7 mmHg; Base Excess ABG 5.2 mEq/l (+/-2.0); Fractional Inspired Oxygen 40 %; HCO3 ABG 32.1 mEq/l (22.0-26.0); Oxygen Content ABG 21.8 %vol (16.0-22.0); Oxygen Saturation ABG 96.9 % (95.0-100.0); Oxyhemoglobin 95.7 % THb (90.0-100.0); PCO2 ABG 55.2 mmHg (35.0-45.0); PO2 FiO2 Ratio Arterial Blood 2.35 %; Total Hemoglobin 16.2 g/dL (12.0-18.0); pH ABG 7.382 (7.350-7.450)
[2022-09-16 06:39] LABS: Device OTHER DEVICE; Modified Allen's Test Pass; Site Drawn LEFT RADIAL
[2022-09-16] MEDS: ENOXAPARIN 40 MG/0.4 ML SYRINGE SUB-Q (09:42)
[2022-09-16] MEDS: methylPREDNISolone SOD SUCC 125 MG VIAL 60 MG IV PUSH ×2 (09:42→18:24)
[2022-09-16] MEDS: NICOTINE (*PBKC) 21 MG PATCH 1 PATCH TRANSDERM (09:42)
--- NOTE | 2022-09-16 12:03 | PM.IMPN ---
Progress Note: A&P Assessment and Plan (1) Acute respiratory failure with hypoxia and hypercapnia: Code(s): J96.01 - Acute respiratory failure with hypoxia; J96.02 - Acute respiratory failure with hypercapnia Status: Acute Assessment and Plan: Currently on BiPAP/AVAPS -currently off during day and on at night. Will recheck ABG in the morning. Will also do an overnight ApneaLink. Patient may have significant chronic lung disease were she needs BiPAP at home. Solu-Medrol. Continuous pulse ox Continuous telemetry Awaiting pulmonology consult (2) Sludge in gallbladder: Code(s): K82.8 - Other specified diseases of gallbladder Status: Acute Assessment and Plan: No need for surgical intervention. (3) CHF (congestive heart failure): Qualifiers: Heart failure chronicity: acute Heart failure type: unspecified Qualified Code(s): I50.9 - Heart failure, unspecified Code(s): I50.9 - Heart failure, unspecified Status: Acute Assessment and Plan: 2DECHO in am diureses as needed daily I/O daily BMP (4) Respiratory distress: Code(s): R06.03 - Acute respiratory distress Status: Acute Assessment and Plan: Likely secondary to underlying COPD. Otherwise, echo was pending. (5) Tobacco dependence: Code(s): F17.200 - Nicotine dependence, unspecified, uncomplicated Status: Acute Assessment and Plan: Nicotine patch as needed Subjective Date/time seen: 09/16/22 12:03 Interval history: Patient reports her respiratory status is much improved. Patient is able to talk and get up move around the room. Exam Narrative: Patient sitting in bed BiPAP on Const: General: comfortable, no acute distress, well developed, alert, awake, average body habitus, obese and other (albeit on BiPAP on 60 % FiO2) Nutritional Appearance: average body habitus and obese Orientation/consciousness: patient oriented x3 HENMT: Head: normal to inspection, normocephalic and atraumatic Ears: hearing grossly normal bilaterally Face/Nose/Sinus: normal facial exam Face and sinus: normal facial exam Eyes: General: appearance normal, both eyes and all related structures Pupils: Equal, round and reactive pupils present EOM: EOMs intact bilaterally Neck: Neck: full ROM, no lymphadenopathy and no JVD Thyroid: thyroid normal Lymphatic: no lymphadenopathy noted Resp: Effort & Inspection: normal respiratory effort, not labored, no paradoxical thoraco-abdom movements, no tripod positioning and symmetric chest movement Auscultation: clear to auscultation bilaterally Cardio: Jugular venous distension: no JVD Rate: regular rate Rhythm: regular rhythm Heart sounds: S1 normal heart sound present and S2 normal heart sound present GI: Inspection: obesity : General: Yes deferred Skin: Rashes: no rashes Wounds: no wounds Neuro: General: patient oriented x3, CN's II-XI intact bilaterally and Unable to assess gait Cranial nerves: Yes CN's II-XII intact bilaterally and Yes Equal, round and reactive pupils present Cognition (Neuro): normal cognition Speech: normal speech Gait exam (Neuro): Unable to assess gait Motor exam (neuro): 5/5 motor strength present throughout Extrem: General: normal to inspection, full ROM and pedal edema Objective Data Vital Signs Vital Signs: Vital Signs - 24 hr 09/15/22 13:41 09/15/22 13:42 09/15/22 14:00 Temperature Pulse Rate 72 72 77 Respiratory Rate 25 H 25 H Blood Pressure Pulse Oximetry 98 Oxygen Delivery BiPAP Oxygen Flow Rate Fraction of Inspired Oxygen 09/15/22 16:00 09/15/22 15:30 09/15/22 16:50 Temperature Pulse Rate 75 Respiratory Rate 25 H Blood Pressure Pulse Oximetry 99 Oxygen Delivery BiPAP High Flow Nasal Cannula Oxygen Flow Rate 4 Fraction of Inspired Oxygen 09/15/22 16:00 09/15/22 17:34 09/15/22 16:00 Temperature 97.9 F Pulse Rate 76 Respir
--- NOTE | 2022-09-16 12:04 | PC.NURSE ---
This patient, Jerri Og, was transferred to [facility] on 09/16/22 at 1204. Personal belongings sent with patient. Report given to Aida LAGUERRE. Appropriate documentation sent with patient.
[2022-09-16] MEDS: FUROSEMIDE INJ 40 MG/4 ML VIAL IV PUSH (12:18)
[2022-09-16] MEDS: ALBUTEROL SULFATE NEB 2.5 MG/3 ML INH (14:55)
[2022-09-16] MEDS: IPRATROPIUM BR 0.02% INH SOLN 0.5 MG/2.5 ML VIAL (14:55)
[2022-09-17] VITALS (18 sets, daily range): BP systolic 121–157; BP diastolic 63–85; PULSE 57–97; RESP 18–26; TEMP 36.3–36.8; O2SAT 92–100
--- NOTE | 2022-09-17 | ECHO_ITS ---
Patient Info Name: Jerri Og Age: 62 years : 1960 Gender: Female Ht: 60 in Wt: 172 lbs BSA: 1.85 m2 HR: 61 bpm BP: 143 / 66 mmHg Heart Rhythm: Sinus Rhythm Technical Quality: Fair Exam Date: 09/17/2022 11:19 AM Exam Location: [facility] Room: 243 Patient Status: Inpatient Admit Date: 09/15/2022 Staff Ordering Physician: Scott Isaacs MD [employer] Production Machine Operator: Ruthann Goyal RDCS Attending Provider: Elliot Mckeon MD Referring Physician: Ferny MAYS; Exam Type: CA echo doppler color flow Study Info Indications - chf Complete two-dimensional, color flow and Doppler transthoracic echocardiogram is performed. Summary 1. Complete two-dimensional, color flow and Doppler transthoracic echocardiogram is performed. 2. Left ventricular chamber dimension is normal. 3. Left ventricular systolic function is normal, estimated at 60-65%. 4. The left ventricular diastolic function is grade I diastolic dysfunction. 5. E/e' 11 is mildly elevated. 6. No pulmonary hypertension, estimated pulmonary arterial systolic pressure is 25 mmHg. Left Ventricle E/e' 11 is mildly elevated. Left ventricular chamber dimension is normal. Left ventricular systolic function is normal, estimated at 60-65%. The left ventricular diastolic function is grade I diastolic dysfunction. Right Ventricle Right ventricular chamber dimension is normal. Right ventricular systolic function is normal. Left Atria Left atrial chamber dimension is normal. Right Atria Right atrial chamber dimension is normal. Aortic Valve The aortic valve is trileaflet. There is no aortic valve stenosis. There is no aortic valve regurgitation. Pulmonic Valve There is no pulmonic regurgitation. Mitral Valve There is no mitral valve stenosis. There is no mitral valve regurgitation. Tricuspid Valve There is no tricuspid valve regurgitation. No pulmonary hypertension, estimated pulmonary arterial systolic pressure is 25 mmHg. Pericardium/Pleural There is no pericardial effusion. Inferior Vena Cava Normal inferior vena cava with >50% collapse upon inspiration consistent with normal right atrial pressure, 5 mmHg. Aorta The aortic root size at the sinus of Valsalva is normal. Left Ventricular Outflow Tract Name Value Normal LVOT 2D LVOT Diameter 2.0 cm LVOT Doppler LVOT Peak Gradient 8 mmHg LVOT Mean Gradient 5 mmHg LVOT VTI 31 cm LVOT VTI/AV VTI Ratio 1.1 LVOT Stroke Volume 97 ml LVOT CO 19.5 l/min LVOT CI 10.5 l/min/m2 Pulmonic Valve Name Value Normal RVOT Doppler RVOT Peak Gradient 2 mmHg PV Doppler PV Peak Gradient 3 mmHg M
[2022-09-17 05:46] LABS: Blood Urea Nitrogen 24 mg/dL (7-17); Calcium 8.5 mg/dL (8.4-10.2); Carbon Dioxide > 40 mmol/L (22-30); Chloride 95 mmol/L (98-107); Estimated CRCL calculation 77 ml/min; Estimated Glomerular Filt Rate > 60; Glucose 204 mg/dL (65-110); Potassium 4.2 mmol/L (3.4-5.0); Sodium 137 mmol/L (137-145)
[2022-09-17] MEDS: IPRATROPIUM BR 0.02% INH SOLN 0.5 MG/2.5 ML VIAL INHALATION ×3 (07:43→20:07)
[2022-09-17] MEDS: ALBUTEROL SULFATE NEB 2.5 MG/3 ML INH INHALATION ×3 (07:43→20:07)
[2022-09-17] MEDS: NICOTINE (*PBKC) 21 MG PATCH 1 PATCH TRANSDERM (08:58)
[2022-09-17] MEDS: methylPREDNISolone SOD SUCC 125 MG VIAL 60 MG IV PUSH ×2 (08:58→17:39)
[2022-09-17] MEDS: ENOXAPARIN 40 MG/0.4 ML SYRINGE SUB-Q (08:58)
--- NOTE | 2022-09-17 11:31 | PM.IMPN ---
Progress Note: A&P Assessment and Plan (1) Acute respiratory failure with hypoxia and hypercapnia: Code(s): J96.01 - Acute respiratory failure with hypoxia; J96.02 - Acute respiratory failure with hypercapnia Status: Acute Assessment and Plan: 2/2 underlying copd Currently on BiPAP/AVAPS -currently off during day and on at night. Will recheck ABG in the morning. Will also do an overnight ApneaLink. Patient may have significant chronic lung disease were she needs BiPAP at home. Solu-Medrol. Continuous pulse ox continue nebs Continuous telemetry Awaiting pulmonology consult (2) Sludge in gallbladder: Code(s): K82.8 - Other specified diseases of gallbladder Status: Acute Assessment and Plan: No need for surgical intervention. (3) CHF (congestive heart failure): Qualifiers: Heart failure chronicity: acute Heart failure type: unspecified Qualified Code(s): I50.9 - Heart failure, unspecified Code(s): I50.9 - Heart failure, unspecified Status: Acute Assessment and Plan: 2DECHO in am diureses as needed daily I/O daily BMP (4) Respiratory distress: Code(s): R06.03 - Acute respiratory distress Status: Acute Assessment and Plan: Likely secondary to underlying COPD. Otherwise, echo was pending. (5) Tobacco dependence: Code(s): F17.200 - Nicotine dependence, unspecified, uncomplicated Status: Acute Assessment and Plan: Nicotine patch as needed Subjective Date/time seen: 09/17/22 11:31 Interval history: No new complaints Respiratory status is somewhat better. ABG not performed this morning. Exam Narrative: Patient sitting in bed BiPAP on Const: General: comfortable, no acute distress, well developed, alert, awake, average body habitus, obese and other (albeit on BiPAP on 60 % FiO2) Nutritional Appearance: average body habitus and obese Orientation/consciousness: patient oriented x3 HENMT: Head: normal to inspection, normocephalic and atraumatic Ears: hearing grossly normal bilaterally Face/Nose/Sinus: normal facial exam Face and sinus: normal facial exam Eyes: General: appearance normal, both eyes and all related structures Pupils: Equal, round and reactive pupils present EOM: EOMs intact bilaterally Neck: Neck: full ROM, no lymphadenopathy and no JVD Thyroid: thyroid normal Lymphatic: no lymphadenopathy noted Resp: Effort & Inspection: normal respiratory effort, no audible wheezes, no cough, not labored, no paradoxical thoraco-abdom movements, respiratory distress (on BiPAP), no tripod positioning and symmetric chest movement Auscultation: clear to auscultation bilaterally Cardio: Jugular venous distension: no JVD Rate: regular rate Rhythm: regular rhythm Heart sounds: S1 normal heart sound present and S2 normal heart sound present GI: Inspection: obesity : General: Yes deferred Skin: Rashes: no rashes Wounds: no wounds Neuro: General: patient oriented x3, CN's II-XI intact bilaterally and Unable to assess gait Cranial nerves: Yes CN's II-XII intact bilaterally and Yes Equal, round and reactive pupils present Cognition (Neuro): normal cognition Speech: normal speech Gait exam (Neuro): Unable to assess gait Motor exam (neuro): 5/5 motor strength present throughout Extrem: General: normal to inspection, full ROM and pedal edema Objective Data Vital Signs Vital Signs: Vital Signs - 24 hr 09/16/22 12:00 09/16/22 14:55 09/16/22 15:10 Temperature 98.3 F Pulse Rate 84 74 78 Respiratory Rate 17 22 H 22 H Blood Pressure 125/64 Pulse Oximetry 92 Oxygen Delivery Oxygen Flow Rate 09/16/22 16:00 09/16/22 12:00 09/16/22 16:00 Temperature 98.2 F Pulse Rate 98 79 101 H Respiratory Rate 18 Blood Pressure 128/58 L Pulse Oximetry 91 Oxygen Delivery Oxygen Flow Rate 09/16/22 19:33 09/16/22 21:04 09/16/22 21:04 Temperature 98.3 F Pulse Rate 93
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
[2022-09-17] MEDS: hydrOXYzine HCL 10 MG TABLET PO (21:05)
[2022-09-18] VITALS (20 sets, daily range): BP systolic 135–157; BP diastolic 72–87; PULSE 59–92; RESP 16–26; TEMP 36.1–36.6; O2SAT 90–97
[2022-09-18 04:06] LABS: Alveolar/Arterial O2 Gradient 119.7 mmHg; Fractional Inspired Oxygen 40 %; HCO3 ABG 31.1 mEq/l (22.0-26.0); Oxygen Content ABG 21.6 %vol (16.0-22.0); Oxygen Saturation ABG 97.3 % (95.0-100.0); Oxyhemoglobin 96.3 % THb (90.0-100.0); PCO2 ABG 55.8 mmHg (35.0-45.0); PO2 ABG 101.3 mmHg (80.0-100.0); PO2 FiO2 Ratio Arterial Blood 2.53 %; Total Hemoglobin 15.9 g/dL (12.0-18.0); pH ABG 7.364 (7.350-7.450)
[2022-09-18 04:07] LABS: Site Drawn LEFT RADIAL
[2022-09-18 04:08] LABS: Device NON-INVASIVE VENT; Modified Allen's Test Pass
[2022-09-18 04:10] LABS: Non-Invasive Vent Rate 25 /MIN
[2022-09-18 04:12] LABS: Non-Invasive Expiratory Pressure 12 CMH2O
[2022-09-18] MEDS: IPRATROPIUM BR 0.02% INH SOLN 0.5 MG/2.5 ML VIAL INHALATION ×2 (07:20→13:16)
[2022-09-18] MEDS: ALBUTEROL SULFATE NEB 2.5 MG/3 ML INH INHALATION ×3 (07:20→20:50)
[2022-09-18 08:19] LABS: Anion Gap 3 mmol/L (8-16); Blood Urea Nitrogen 24 mg/dL (7-17); Calcium 8.8 mg/dL (8.4-10.2); Carbon Dioxide 38 mmol/L (22-30); Chloride 98 mmol/L (98-107); Estimated CRCL calculation 76 ml/min; Estimated Glomerular Filt Rate > 60; Glucose 162 mg/dL (65-110); Potassium 4.4 mmol/L (3.4-5.0); Sodium 139 mmol/L (137-145)
[2022-09-18] MEDS: NICOTINE (*PBKC) 21 MG PATCH 1 PATCH TRANSDERM (08:27)
[2022-09-18] MEDS: ENOXAPARIN 40 MG/0.4 ML SYRINGE SUB-Q (08:27)
[2022-09-18] MEDS: methylPREDNISolone SOD SUCC 125 MG VIAL 60 MG IV PUSH ×2 (09:12→17:39)
[2022-09-18] MEDS: FLUTICASONE/UMECLIDIN/VILANTER 100-62.5-25 MCG ELLIPTA 1 PUFF INHALATION (11:36)
--- NOTE | 2022-09-18 11:41 | PM.IMPN ---
Progress Note: A&P Assessment and Plan (1) Acute respiratory failure with hypoxia and hypercapnia: Code(s): J96.01 - Acute respiratory failure with hypoxia; J96.02 - Acute respiratory failure with hypercapnia Status: Acute Assessment and Plan: 2/2 underlying copd Currently on BiPAP/AVAPS -currently off during day and on at night. Will recheck ABG in the morning. Will also do an overnight ApneaLink. Patient may have significant chronic lung disease were she needs BiPAP at home. Solu-Medrol. Continuous pulse ox continue nebs Appreciate pulmonary input. (2) Sludge in gallbladder: Code(s): K82.8 - Other specified diseases of gallbladder Status: Acute Assessment and Plan: No need for surgical intervention. (3) CHF (congestive heart failure): Qualifiers: Heart failure chronicity: acute Heart failure type: unspecified Qualified Code(s): I50.9 - Heart failure, unspecified Code(s): I50.9 - Heart failure, unspecified Status: Acute Assessment and Plan: 2DECHO in am diureses as needed daily I/O daily BMP (4) Respiratory distress: Code(s): R06.03 - Acute respiratory distress Status: Acute Assessment and Plan: Likely secondary to underlying COPD. Otherwise, echo was pending. (5) Tobacco dependence: Code(s): F17.200 - Nicotine dependence, unspecified, uncomplicated Status: Acute Assessment and Plan: Nicotine patch as needed Subjective Date/time seen: 09/18/22 11:41 Interval history: No new complaints today. Still on 4L of oxygen. Exam Narrative: Patient sitting in bed BiPAP on Const: General: comfortable, no acute distress, well developed, alert, awake, average body habitus, obese and other (albeit on BiPAP on 60 % FiO2) Nutritional Appearance: average body habitus and obese Orientation/consciousness: patient oriented x3 HENMT: Head: normal to inspection, normocephalic and atraumatic Ears: hearing grossly normal bilaterally Face/Nose/Sinus: normal facial exam Face and sinus: normal facial exam Eyes: General: appearance normal, both eyes and all related structures Pupils: Equal, round and reactive pupils present EOM: EOMs intact bilaterally Neck: Neck: full ROM, no lymphadenopathy and no JVD Thyroid: thyroid normal Lymphatic: no lymphadenopathy noted Resp: Effort & Inspection: normal respiratory effort, no audible wheezes, no cough, not labored, no paradoxical thoraco-abdom movements, respiratory distress (on BiPAP), no tripod positioning and symmetric chest movement Auscultation: clear to auscultation bilaterally Cardio: Jugular venous distension: no JVD Rate: regular rate Rhythm: regular rhythm Heart sounds: S1 normal heart sound present and S2 normal heart sound present GI: Inspection: obesity : General: Yes deferred Skin: Rashes: no rashes Wounds: no wounds Neuro: General: patient oriented x3, CN's II-XI intact bilaterally and Unable to assess gait Cranial nerves: Yes CN's II-XII intact bilaterally and Yes Equal, round and reactive pupils present Cognition (Neuro): normal cognition Speech: normal speech Gait exam (Neuro): Unable to assess gait Motor exam (neuro): 5/5 motor strength present throughout Extrem: General: normal to inspection, full ROM and pedal edema Objective Data Vital Signs Vital Signs: Vital Signs - 24 hr 09/17/22 12:00 09/17/22 13:25 09/17/22 13:38 Temperature Pulse Rate 77 85 90 Respiratory Rate 20 22 H Blood Pressure Pulse Oximetry Oxygen Delivery Oxygen Flow Rate 09/17/22 12:00 09/17/22 16:00 09/17/22 16:00 Temperature 97.8 F 98 F Pulse Rate 93 91 83 Respiratory Rate 22 H 22 H Blood Pressure 154/64 H 123/63 Pulse Oximetry 92 95 Oxygen Delivery Oxygen Flow Rate 09/17/22 19:39 09/17/22 20:00 09/17/22 20:00 Temperature 98.2 F Pulse Rate 81 89 Respiratory Rate 18 Blood Pressure 157/81 H Pulse Oximetr
--- NOTE | 2022-09-18 17:59 | PM.PNPUL ---
Progress Note: A&P Assessment and Plan (1) Acute respiratory failure with hypoxia and hypercapnia: Code(s): J96.01 - Acute respiratory failure with hypoxia; J96.02 - Acute respiratory failure with hypercapnia Status: Acute Assessment and Plan: She is significantly improved with diuresis and bilevel mechanical ventilation support.? She is a heavy smoker, very likely has COPD.? She does not have any treatment for this.? She had an elevated white blood cell count with a left shift, and treating for pneumonia is appropriate. She said that she had? some chills, sore throat and some fatigue a few days before admission. ? She has a post diuresis contraction alkalosis. (2) COPD (chronic obstructive pulmonary disease): Code(s): J44.9 - Chronic obstructive pulmonary disease, unspecified Status: Acute Assessment and Plan: She has COPD by history and clinical exam; needs out patient testing with PFTs; started Trelegy 100 daily 09/17/22 She is feeling better, still has intense coughing with small amounts of clear sputum. (3) Tobacco dependence: Code(s): F17.200 - Nicotine dependence, unspecified, uncomplicated Status: Acute Assessment and Plan: heavy smoking, rolls her own, started age 6, now about a pack a day of home rolled cigarettes (4) CHF (congestive heart failure): Qualifiers: Heart failure chronicity: acute Heart failure type: unspecified Qualified Code(s): I50.9 - Heart failure, unspecified Code(s): I50.9 - Heart failure, unspecified Status: Acute Assessment and Plan: May have diastolic dysfunction. echo 09/17/22? Complete two-dimensional, color flow and Doppler transthoracic echocardiogram is performed. ? 2. Left ventricular chamber dimension is normal. ? 3. Left ventricular systolic function is normal, estimated at 60-65%. ? 4. The left ventricular diastolic function is grade I diastolic dysfunction. ? 5. E/e' 11 is mildly elevated. ? 6. No pulmonary hypertension, estimated pulmonary arterial systolic pressure is 25 mmHg. Plan 1. Wean O2, last ABG on 40% shows that she can have lower O2 flow 2. Add Lasix 20 mg po BID to continue diuresis 3. Tobacco cessation; she is wearing nicotine patch 4. ApneaLink did not have enough evaluation time, only 1 minute even though the device was recording 6 hours; something must have fallen off during the night. See if RT can arrange Trilogy based on initial ABG 5. Home O2 testing before discharge; she has erythrocytosis due to hypoxemia 6. continue COPD controller Rx, out patient PFTs when she is close to her baseline.? Trelegy 100, one puff a day 7. stop nebulized ipratropium now that she is on Trelegy, which has a LAMA 8. This is taking a while for her to respond, so will add antibiotic = Cefdinir 300 mg BID. She is wheezing more thatn expected for this many days of IV steroids and treatment. 9. See if RT can arrange NPPV prior to discharge based on her ABGs Subjective Date/time seen: 09/18/22 17:59 Interval history: hospital follow up : Jerri Og is 62-year-old female smoker admitted 09/14/22 with hypercapnic hypoxemic resp failure due to COPD exacerbation. seen for respiratory distress. She is a smoker, rolls her own, quit buying regular cigarettes 5 years ago.? She is physically active,? has a swimming pool, large garden, lots of chickens, ,stays busy every day. She is short of breath with 1 flight of stairs even on a good day.? She does have a chronic cough and at home has mild production of clear sputum on a regular basis. She has never had an exacerbation of COPD before.? She says that about 4 days prior to calling the ambulance she started have swelling in her
[2022-09-19] VITALS (25 sets, daily range): BP systolic 140–156; BP diastolic 67–82; PULSE 58–94; RESP 18–24; TEMP 36.6–36.7; O2SAT 86–97
[2022-09-19] MEDS: ALBUTEROL SULFATE NEB 2.5 MG/3 ML INH INHALATION ×4 (02:15→20:45)
[2022-09-19] MEDS: FLUTICASONE/UMECLIDIN/VILANTER 100-62.5-25 MCG ELLIPTA 1 PUFF INHALATION (08:56)
[2022-09-19] MEDS: FUROSEMIDE 20 MG TABLET PO ×2 (09:33→18:21)
[2022-09-19] MEDS: methylPREDNISolone SOD SUCC 125 MG VIAL 60 MG IV PUSH (09:33)
[2022-09-19] MEDS: NICOTINE (*PBKC) 21 MG PATCH 1 PATCH TRANSDERM (09:33)
[2022-09-19] MEDS: CEFDINIR 300 MG CAPSULE PO ×2 (09:33→21:29)
[2022-09-19] MEDS: ENOXAPARIN 40 MG/0.4 ML SYRINGE SUB-Q (09:34)
--- NOTE | 2022-09-19 10:11 | PCRCNOTE ---
Addendum entered by Virgen Arango, ENGINEER INTERN 09/19/22 15:59: TRILOGY APPROVED. MACHINE DELIVERED TO BEDSIDE. TO BE WORN TONIGHT AND ABG OBTAINED IN THE MORNING. Original Note: SENT INITIAL PAPERWORK FOR TRILOGY SET UP TO MELISSA AT [facility].
--- NOTE | 2022-09-19 10:38 | P.CDI_ITS ---
CDI Query Clarification Request Elevated BNP on 09/14/22 lab work. Documented dyspnea with exertion and BLE edema. Pulmonary edema noted on 09/14/22 & 09/17/22 chest Xrays. Patient receiving Lasix. CHF noted in the assessment and plan. Please specify type and acuity of heart failure if known. * Acute * Chronic * Acute on Chronic * Unknown * Systolic * Diastolic * Combined Systolic and Diastolic * Unknown
--- NOTE | 2022-09-19 11:36 | PM.PNPUL ---
Progress Note: A&P Assessment and Plan (1) Acute and chronic respiratory failure, unspecified whether with hypoxia or hypercapnia: Code(s): J96.20 - Acute and chronic respiratory failure, unspecified whether with hypoxia or hypercapnia Status: Acute Assessment and Plan: I am changing her diagnosis from acute resp failure to acute in chronic resp failure which better reflects her disease process. On admission, pCO2 was high and HCO3 elevated, now ABG improved I am ordering Trilogy for nocturnal and daytime use for management of chronic respiratory failure; BiPAP has been used with some improvement but not sufficient, with pCO2 still > 55mmHg. BiPAP will not be effective at controlling hypercapnia associated with chronic respiratory failure. She is improved with diuresis, and had partial response to bilevel mechanical ventilation support.? She is a heavy smoker, very likely has COPD.? We started Rx for COPD with Trelegy. She had an elevated white blood cell count with a left shift, and treating for pneumonia is appropriate. She said that she had? some chills, sore throat and some fatigue a few days before admission. ? She has a post diuresis contraction alkalosis. (2) COPD (chronic obstructive pulmonary disease): Code(s): J44.9 - Chronic obstructive pulmonary disease, unspecified Status: Acute Assessment and Plan: She has COPD by history and clinical exam; needs out patient testing with PFTs; started Trelegy 100 daily 09/17/22 She is feeling better, less coughing with small amounts of clear sputum. Add Cornet (3) Tobacco dependence: Code(s): F17.200 - Nicotine dependence, unspecified, uncomplicated Status: Acute Assessment and Plan: heavy smoking, rolls her own, started age 6, now about a pack a day of home rolled cigarettes tobacco cessation is crucial to recovery; on nicotine patch (4) CHF (congestive heart failure): Qualifiers: Heart failure chronicity: acute Heart failure type: unspecified Qualified Code(s): I50.9 - Heart failure, unspecified Code(s): I50.9 - Heart failure, unspecified Status: Acute Assessment and Plan: She may have diastolic dysfunction clinically as she had swollen legs, pulmonayr edema pattern on CXR, and echo shows DD grade I. echo 09/17/22? Complete two-dimensional, color flow and Doppler transthoracic echocardiogram is performed. ? 2. Left ventricular chamber dimension is normal. ? 3. Left ventricular systolic function is normal, estimated at 60-65%. ? 4. The left ventricular diastolic function is grade I diastolic dysfunction. ? 5. E/e' 11 is mildly elevated. ? 6. No pulmonary hypertension, estimated pulmonary arterial systolic pressure is 25 mmHg. Plan 1. Order Trilogy NPPV; discussed with patient indications for use and expectations re: minimum 4 hours per day, more is better, and mask fit will be important. Has to have ffm; ok to sleep on her side. She does not sleep supine. 2. Add Cornet valve to help mobilize secretions which she is not able to expectorate easily. 3 Continue Cefdinir 4. Tobacco cessation again addressed; her son is cleaning the house to help decreased smell, etc. 5. Increase activity. Now on Room Air, sat 90-92%. 6. Walk study prior to discharge. 7. Acetazolamide 250 mg po today and tomorrow to decreased post contraction alkalosis. 8. Continue low dose Lasix for diuresis. Subjective Date/time seen: 09/19/22 11:36 Interval history: hospital follow up : Jerri Og is 62-year-old female smoker admitted 09/14/22 with hypercapnic hypoxemic resp failure due to COPD exacerbation and CHF. 09/19/22 - her friend Teri is at the bedside. She feels curry
--- NOTE | 2022-09-19 12:46 | PM.IMPN ---
Progress Note: A&P Assessment and Plan (1) Acute respiratory failure with hypoxia and hypercapnia: Code(s): J96.01 - Acute respiratory failure with hypoxia; J96.02 - Acute respiratory failure with hypercapnia Status: Acute Assessment and Plan: Patient presents with shortness of breath and found to have acute respiratory failure with hypoxia and hypercapnia. ABG 7.18/75/62 on 3 L. chest x-ray showed mild diffuse interstitial pattern which could reflect pulmonary edema. BNP was elevated. She also smokes and probably has underlying COPD. She was treated for CHF and COPD exacerbation. She was also started on noninvasive ventilation. Blood gas has improved. Continue steroids. Continue Trelegy and albuterol. ApneaLink was not helpful. Trilogy ordered. Possible discharge tomorrow. Pulmonary following appreciate their input. (2) COPD (chronic obstructive pulmonary disease): Code(s): J44.9 - Chronic obstructive pulmonary disease, unspecified Status: Acute Assessment and Plan: Patient with COPD exacerbation. Weaned to room air. Continue steroids. Trelogy was added. Continue albuterol. Continue antibiotics (3) CHF (congestive heart failure): Qualifiers: Heart failure chronicity: acute Heart failure type: unspecified Qualified Code(s): I50.9 - Heart failure, unspecified Code(s): I50.9 - Heart failure, unspecified Status: Acute Assessment and Plan: Chest x-ray as mentioned above. BNP 1627. She was started on IV Lasix. She clinical improvement. She has been weaned to room air. Echocardiogram showing EF of 60-65% with grade 1 diastolic dysfunction. No pulmonary hypertension. Continue Lasix. Add empagliflozin. Check EKG. Okay to stop tele. (4) Tobacco dependence: Code(s): F17.200 - Nicotine dependence, unspecified, uncomplicated Status: Acute Assessment and Plan: Patient was educated about the benefits of smoking cessation. (5) Sludge in gallbladder: Code(s): K82.8 - Other specified diseases of gallbladder Status: Acute Assessment and Plan: Right upper quadrant ultrasound was performed because of pain which showed small amount of gallbladder sludge without shadowing cholelithiasis. Showed normal common bile duct measurement. No need for surgical intervention. Subjective Date/time seen: 09/19/22 12:46 Interval history: 62yo female with tobacco abuse here for acute shortness of breath. Assuming care. Chart reviewed. Patient does not wear oxygen at home. She does not wear BiPAP at home. She feels well today. No chest pain. Shortness of breath is much better. No significant dyspnea on exertion. She does have a persistent cough which is dry. Exam Narrative: AF 97.8 152/73 80 18 92% RA Gen - NARD Chest - few basilar crackles and scattered expiratory wheeze CV - RRR S1/S2. Tele showing no significant dysrhythmias Abd - Soft, NT/ND, Positive BS Ext - trace pedal edema. negative Homans Psych - Nml mood and affect Skin - Warm and dry Objective Data Vital Signs Vital Signs: Vital Signs - 24 hr 09/18/22 13:16 09/18/22 13:16 09/18/22 13:16 Temperature Pulse Rate 72 72 Respiratory Rate 20 Blood Pressure Pulse Oximetry 94 94 Oxygen Delivery High Flow Nasal Cannula High Flow Nasal Cannula Oxygen Flow Rate 4 Fraction of Inspired Oxygen 09/18/22 13:28 09/18/22 13:32 09/18/22 16:25 Temperature 96.9 F L Pulse Rate 71 88 80 Respiratory Rate 20 20 Blood Pressure 156/72 H Pulse Oximetry 94 Oxygen Delivery Oxygen Flow Rate Fraction of Inspired Oxygen 09/18/22 17:44 09/18/22 19:49 09/18/22 20:50 Temperature 97.9 F Pulse Rate 76 76 Respiratory Rate 18 20 Blood Pressure 135/83 Pulse Oximetry 94 91 Oxygen Delivery Room Air Oxygen Flow Rate Fraction of Inspired Oxygen 09/18/22 21:05 09/18/22 21:10 09/18/22 20:00 Temp
--- NOTE | 2022-09-19 12:59 | ECG_ITS ---
Measurements Intervals Woody Rate: 82 P: 71 AL: 136 QRS: 56 QRSD: 80 T: 51 QT: 359 QTc: 421 Interpretive Statements SINUS RHYTHM POSSIBLE LEFT ATRIAL ENLARGEMENT CANNOT RULE OUT SEPTAL INFARCT, AGE INDETERMINATE ABNORMAL ECG NO PREVIOUS ECG AVAILABLE FOR COMPARISON Electronically Signed On 09-19-2022 14:41:46 CDT by Toño Magana D.O.
[2022-09-19] MEDS: acetaZOLAMIDE TAB 250 MG TABLET PO (13:02)
--- NOTE | 2022-09-19 15:48 | HOMEO2EVAL ---
Evaluation was performed at [facility] Home Oxygen Evaluation RC: Home Oxygen (O2) Evaluation Start: 09/19/22 12:48 Freq: ONCE Status: Active Protocol: RPE Activity Type Activity Date Activity User E-sign Co-sign Detail Recorded Client Recorded Date Recorded By Document 09/19/22 15:00 PK [email or web address] 09/19/22 15:48 PK Document 09/19/22 15:05 [facility] [email or web address] 09/19/22 15:48 [facility] Document 09/19/22 15:10 [facility] [email or web address] 09/19/22 15:48 [facility] Document 09/19/22 15:15 [facility] [email or web address] 09/19/22 15:48 [facility] Document 09/19/22 15:30 [facility] [email or web address] 09/19/22 15:48 [facility] 09/19/22 09/19/22 09/19/22 15:00 15:05 15:10 Home O2 Evaluation [Oxygen] -Test Phase Resting Exercise Exercise -Oxygen Delivery Room Air Room Air Nasal Cannula -Oxygen Flow Rate (L/min) 1 [Pulse Oximetry] -Pulse Oximetry (90-100 %) 92 86 L 87 L [Pulse Rate] -Pulse Rate (60-100 beats/min) 81 90 92 [Charges] -Treatment Charges O2 Evaluation - Inpatient 09/19/22 09/19/22 15:15 15:30 Home O2 Evaluation [Oxygen] -Test Phase Exercise Resting -Oxygen Delivery Nasal Cannula Room Air -Oxygen Flow Rate (L/min) 2 [Pulse Oximetry] -Pulse Oximetry (90-100 %) 91 92 [Pulse Rate] -Pulse Rate (60-100 beats/min) 94 93 [Charges] -Treatment Charges
--- NOTE | 2022-09-19 15:49 | PCRCNOTE ---
HOME O2 EVAL COMPLLETE. PATIENT REQUIRES ROOM AIR WITH REST AND 2LPM WITH ACTIVITY. RN NOTIFIED. PATIENT SET UP WITH VIA [employer].
[2022-09-19] MEDS: predniSONE 20 MG TABLET 40 MG PO (18:21)
[2022-09-19] MEDS: MELATONIN 5 MG TABLET PO (22:25)
[2022-09-20] VITALS (9 sets, daily range): BP systolic 134–158; BP diastolic 61–88; PULSE 61–75; RESP 17–19; TEMP 36.3–36.6; O2SAT 91–96
[2022-09-20] MEDS: ALBUTEROL SULFATE NEB 2.5 MG/3 ML INH INHALATION ×2 (02:30→07:52)
[2022-09-20 05:52] LABS: Alveolar/Arterial O2 Gradient 37.3 mmHg; Base Excess ABG -4.4 mEq/l (+/-2.0); Carboxyhemoglobin 1.2 % THb (0-2.0); Fractional Inspired Oxygen 21 %; HCO3 ABG 20.4 mEq/l (22.0-26.0); Methemoglobin ABG 0.5 %THb (0-1.5); Oxygen Content ABG 21.6 %vol (16.0-22.0); Oxyhemoglobin 91.5 % THb (90.0-100.0); PCO2 ABG 37.2 mmHg (35.0-45.0); PO2 ABG 67.9 mmHg (80.0-100.0); PO2 FiO2 Ratio Arterial Blood 3.23 %; Reduced Hemoglobin 6.8 %THb (0-5.0); Total Hemoglobin 16.8 g/dL (12.0-18.0); pH ABG 7.357 (7.350-7.450)
[2022-09-20 05:53] LABS: Device OTHER DEVICE; Site Drawn RIGHT BRACHIAL
[2022-09-20] MEDS: FLUTICASONE/UMECLIDIN/VILANTER 100-62.5-25 MCG ELLIPTA 1 PUFF INHALATION (07:54)
[2022-09-20] MEDS: ENOXAPARIN 40 MG/0.4 ML SYRINGE SUB-Q (09:42)
[2022-09-20] MEDS: CEFDINIR 300 MG CAPSULE PO (09:42)
[2022-09-20] MEDS: FUROSEMIDE 20 MG TABLET PO (09:42)
[2022-09-20] MEDS: NICOTINE (*PBKC) 21 MG PATCH 1 PATCH TRANSDERM (09:42)
[2022-09-20] MEDS: EMPAGLIFLOZIN 10 MG TABLET PO (09:42)
[2022-09-20] MEDS: acetaZOLAMIDE TAB 250 MG TABLET PO (09:42)
--- NOTE | 2022-09-20 12:09 | PM.PNPUL ---
Progress Note: A&P Assessment and Plan (1) Acute and chronic respiratory failure, unspecified whether with hypoxia or hypercapnia: Code(s): J96.20 - Acute and chronic respiratory failure, unspecified whether with hypoxia or hypercapnia Status: Acute Assessment and Plan: acute on chronic respiratory failure; better. On admission, pCO2 was high and HCO3 elevated, now ABG improved She did well on Trilogy, pH 7.35, pCO2 37, pO2 67, HCO3 20, saturation 93% on RA. She has a Trilogy for nocturnal and daytime use for management of chronic respiratory failure; BiPAP has been used with some improvement but not sufficient, with pCO2 still > 55mmHg. BiPAP will not be effective at controlling hypercapnia associated with chronic respiratory failure. She is improved with diuresis, and had partial response to bilevel mechanical ventilation support.? She is a heavy smoker, very likely has COPD.? We started Rx for COPD with Trelegy. She had an elevated white blood cell count with a left shift, treated for pneumonia empirically. She said that she had? some chills, sore throat and some fatigue a few days before admission. ? She has a post diuresis contraction alkalosis. (2) COPD (chronic obstructive pulmonary disease): Code(s): J44.9 - Chronic obstructive pulmonary disease, unspecified Status: Acute Assessment and Plan: She has COPD by history and clinical exam; needs out patient testing with PFTs; started Trelegy 100 daily 09/17/22 She is feeling better, less coughing with small amounts of clear sputum. I ordered COrnet yesterdya, helped clear airways. (3) Tobacco dependence: Code(s): F17.200 - Nicotine dependence, unspecified, uncomplicated Status: Acute Assessment and Plan: heavy smoking, rolls her own, started age 6, now about a pack a day of home rolled cigarettes tobacco cessation is crucial to recovery; on nicotine patch [id number]; live person will talk to you; discussed getting nicotine patch kit with 8 weeks 21 mg, 2 weeks 14 mg and 2 weeks 7 mg to complete 12 weeks. She has no cravings today. Talked about triggers at home; son is now smoking outside. Talked about cravings lasting 5-6 minutes, and she will chew gum when she has a craving. Weight gain is common even with same intake due to metabolic effects of nicotine. This is the first quit attempt she has had. (4) CHF (congestive heart failure): Qualifiers: Heart failure chronicity: acute Heart failure type: unspecified Qualified Code(s): I50.9 - Heart failure, unspecified Code(s): I50.9 - Heart failure, unspecified Status: Acute Assessment and Plan: She may have diastolic dysfunction clinically as she had swollen legs, pulmonayr edema pattern on CXR, and echo shows DD grade I. echo 09/17/22? Complete two-dimensional, color flow and Doppler transthoracic echocardiogram is performed. ? 2. Left ventricular chamber dimension is normal. ? 3. Left ventricular systolic function is normal, estimated at 60-65%. ? 4. The left ventricular diastolic function is grade I diastolic dysfunction. ? 5. E/e' 11 is mildly elevated. ? 6. No pulmonary hypertension, estimated pulmonary arterial systolic pressure is 25 mmHg. Plan 1. Ok to go home today with Trilogy NPPV; discussed with patient indications for use and expectations re: minimum 4 hours per day, more is better, and mask fit will be important. Has to have ffm; ok to sleep on her side. She does not sleep supine. 2. Take Cornet valve to help mobilize secretions which she is not able to expectorate easily. 3 Prednisone taper. I am agnostic on antibiotics. 4. Tobacco cessation again addressed; her son is cleaning the house to he
--- NOTE | 2022-09-20 12:47 | PM.DS ---
DS: Admitting Diagnosis Discharge Date 09/20/22 Admitting Diagnosis Shortness of breath. DS: Discharge Diagnosis Discharge Diagnosis (1) Acute respiratory failure with hypoxia and hypercapnia: Code(s): J96.01 - Acute respiratory failure with hypoxia; J96.02 - Acute respiratory failure with hypercapnia Status: Acute (2) COPD (chronic obstructive pulmonary disease): Code(s): J44.9 - Chronic obstructive pulmonary disease, unspecified Status: Acute (3) CHF (congestive heart failure): Qualifiers: Heart failure chronicity: acute Heart failure type: unspecified Qualified Code(s): I50.9 - Heart failure, unspecified Code(s): I50.9 - Heart failure, unspecified Status: Acute (4) Tobacco dependence: Code(s): F17.200 - Nicotine dependence, unspecified, uncomplicated Status: Acute (5) Sludge in gallbladder: Code(s): K82.8 - Other specified diseases of gallbladder Status: Acute DS: Summary Hospital Course Reason for hospitalization: 62yo female with tobacco abuse here for acute shortness of breath. Please see H&P for details. Hospital Course: Patient presents with shortness of breath and found to have acute respiratory failure with hypoxia and hypercapnia.? ABG 7.18/75/62 on 3 L. chest x-ray showed mild diffuse interstitial pattern which could reflect pulmonary edema.? BNP was elevated.? She also smokes and probably has underlying COPD.? She was treated for CHF and COPD exacerbation.? She was also started on noninvasive ventilation.? Blood gas has improved.?She was treated with steroids and nebulizer treatments.?Trelegy added.? ApneaLink was not helpful. Trilogy ordered. She was weaned to room air but home O2 evaluation showing she needs 2L with activity. [place] she had acute diastolic CHF. She was started on IV Lasix.? She clinical improvement.?Echocardiogram showing EF of 60-65% with grade 1 diastolic dysfunction.? No pulmonary hypertension.?We added empagliflozin.?Patient continues to smoke. She was educated about the benefits of smoking cessation. She was having right upper quadrant pain so ultrasound was performed. The ultrasound showed small amount of gallbladder sludge without shadowing cholelithiasis and normal common bile duct measurement.? No need for surgical intervention. She was started on low fat diet. She has resolution of the pain. She overall did well and was able to be discharged home on 7/6/23. She will be discharged with Trilogy and home O2. Status at Discharge Cognitive/behavioral status at discharge: stable Time Spent with Patient Time attestation: Total time spent providing and/or coordinating discharge services: 38 minutes Time spent: Greater than 30 minutes Exam Narrative: AF 97.3 150/78 65 18 91% RA Gen - NARD Chest - distant BS CV - RRR S1/S2 Abd - Soft, NT/ND, Positive BS Ext - no pedal edema Psych - Nml mood and affect Skin - Warm and dry DS: Data Data Completed and Pending Labs on day of discharge: Labs from last 24 hours 09/20/22 05:38 Puncture Site Right brachial ABG pH 7.357 ABG pCO2 37.2 ABG pO2 67.9 L ABG PO2/FiO2 Ratio 3.23 ABG HCO3 20.4 L ABG O2 Saturation 93.0 L ABG O2 Content 21.6 ABG Base Excess -4.4 A-a Gradient 37.3 Oxyhemoglobin 91.5 Carboxyhemoglobin 1.2 Methemoglobin 0.5 Reduced Hemoglobin 6.8 H Total Hemoglobin 16.8 O2 Delivery Device Other device O2 Liters/Min Not Reportable FiO2 21 Discharge Plan Discharge Attending physician on discharge: Maverick Ruggiero Consulting providers: Rebecca Marshall Discharging Clinician: Maverick Ruggiero Anticipated Discharge Date/Time: 09/20/22 12:28 Patient Disposition: Home, Self-Care Activity: as tolerated Diet: heart healthy and low fat Discharge Instructions: Avoid all products containing tobacco or nicotine. Please complete your antibiotic course even if you are starting to feel w
== END 2022-09-20 15:20 | disposition home or self-care (01) | DRG 194 ==
LOC: ANHIMU 04:33 → ANH2MED 09-16 11:55
PROVIDERS: Chiropractor; Internal Medicine Critical Care Medicine; Admitting Provider Internal Medicine; PCP Internal Medicine; Visit Provider Internal Medicine
DX: I50.31 Acute diastolic (congestive) heart failure (principal); J96.02 Acute respiratory failure with hypercapnia; J96.21 Acute and chronic respiratory failure with hypoxia; K82.8 Other specified diseases of gallbladder; J44.1 Chronic obstructive pulmonary disease with (acute) exacerbation; F17.210 Nicotine dependence, cigarettes, uncomplicated; E66.9 Obesity, unspecified; Z68.33 Body mass index [BMI] 33.0-33.9, adult; Z90.49 Acquired absence of other specified parts of digestive tract
CPT/HCPCS: 36415; 36600; 71045; 80048; 81001; 82375; 82805; 83050; 83605; 83735; 84100; 85025; 93005; 93306; 94002; 94003; 94618; 94640; 94667; 94762; A9270; J1650; J1940; J2060; J2270; J2930; J7512

== ENCOUNTER 2022-09-25 14:41 | Outpatient (CLI) | payer OTHER, SELFPAY ==
[2022-09-25 15:56] LABS: Anion Gap 8 mmol/L (8-16); Blood Urea Nitrogen 22 mg/dL (7-18); Calcium 9.1 mg/dL (8.5-10.1); Carbon Dioxide 30 mmol/L (21-32); Chloride 103 mmol/L (98-108); Estimated Glomerular Filt Rate > 60; Glucose 172 mg/dL (70-99); Osmolality Calculated 299 mOsm/kg (285-295); Potassium 4.6 mmol/L (3.5-5.1); Sodium 141 mmol/L (136-145)
[2022-09-25 16:07] LABS: Strep Group A RT-PCR NOT DETECTED (Negative)
== END 2022-09-25 14:42 | disposition home or self-care (01) ==
LOC: CHSLAB 14:43
PROVIDERS: PCP Nurse Practitioner Family; Visit Provider Internal Medicine
DX: I50.9 Heart failure, unspecified (principal); J02.9 Acute pharyngitis, unspecified
CPT/HCPCS: 36415; 80048; 87651

== ENCOUNTER 2022-10-19 12:52 | Outpatient (CLI) | payer OTHER, SELFPAY ==
[2022-10-19 13:14] LABS: Basophils Absolute Auto 0.06 K/mm3 (0.00-0.10); Basophils Percent Auto 0.6 % (0.0-1.0); Eosinophils Absolute Auto 0.08 K/mm3 (0.02-0.50); Eosinophils Percent Auto 0.8 % (1.0-6.0); Hematocrit 52.6 % (35.0-49.0); Hemoglobin 17.4 g/dL (12.0-15.0); Immature Granulocyte Absolute 0.07 K/mm3 (0.00-0.00); Immature Granulocyte Percent A 0.7 % (0.0-0.0); Lymphocytes Percent Auto 29.1 % (18.0-42.0); Mean Corpuscular HGB Conc 33.1 g/dL (32.0-36.0); Mean Corpuscular Hemoglobin 32.2 pg (27.0-31.0); Mean Corpuscular Volume 97.2 fL (78.0-102.0); Mean Platelet Volume 9.9 fl (9.2-11.8); Monocytes Absolute Auto 0.97 K/mm3 (0.10-0.90); Monocytes Percent Auto 9.1 % (2.0-11.0); Neutrophils Absolute Auto 6.4 K/mm3 (1.7-7.2); Neutrophils Percent Auto 59.7 % (50.0-70.0); Platelet Count Result 322 K/mm3 (150-420); Red Blood Count 5.41 M/mm3 (4.20-5.40); Red Cell Distribution Width 13.3 % (11.6-14.4); White Blood Count 10.6 K/mm3 (4.8-10.8)
[2022-10-19 17:53] LABS: Alanine Aminotransferase 48 U/L (14-59); Albumin Level 4.1 g/dL (3.4-5.0); Alkaline Phosphatase 85 U/L (46-116); Anion Gap 9 mmol/L (8-16); Aspartate Amino Transferase 19 U/L (15-37); Bilirubin,Total 0.4 mg/dL (0.00-1.00); Blood Urea Nitrogen 16 mg/dL (7-18); Calcium 9.6 mg/dL (8.5-10.1); Carbon Dioxide 28 mmol/L (21-32); Chloride 99 mmol/L (98-108); Estimated Glomerular Filt Rate > 60; Glucose 109 mg/dL (70-99); Magnesium 2.2 mg/dL (1.8-2.4); NT Pro B Type Natriuretic Pept 19 pg/mL (0-125); Osmolality Calculated 284 mOsm/kg (285-295); Potassium 4.2 mmol/L (3.5-5.1); Sodium 136 mmol/L (136-145); Total Protein 7.8 g/dL (6.4-8.2)
== END 2022-10-19 12:53 | disposition home or self-care (01) ==
LOC: CHSLAB 12:55
PROVIDERS: PCP Internal Medicine; Visit Provider Internal Medicine
DX: I50.9 Heart failure, unspecified (principal); J44.9 Chronic obstructive pulmonary disease, unspecified; R73.9 Hyperglycemia, unspecified
CPT/HCPCS: 36415; 80053; 83036; 83735; 83880; 85025

== ENCOUNTER 2022-11-12 23:04 | Emergency (ER) | payer OTHER, SELFPAY ==
--- NOTE | ~2022-11-12 | XR_ITS ---
Portable chest x-ray Comparison: 09/17/2022 Clinical History: Shortness of breath Findings: Lungs are clear, without focal consolidation or pleural effusion. Cardiomediastinal silho uette is stable. Bones and soft tissues are unremarkable. Impression: Clear lungs. Reviewed, dictated and finalized at location . Impression: Clear lungs.
[2022-11-12 23:05] VITALS: BP 169/90; PULSE 112; RESP 28; TEMP 37.2; O2SAT 92; O2SAT 94
--- NOTE | 2022-11-12 23:07 | ECG_ITS ---
Measurements Intervals [place] Rate: 109 P: 75 AK: 153 QRS: 54 QRSD: 78 T: 69 QT: 311 QTc: 419 Interpretive Statements SINUS TACHYCARDIA LOW QRS VOLTAGE PREVIOUS ANTERIOR WALL [place] ABNORMAL ECG COMPARED TO ECG 09/19/2022 13:42:25 HEART RATE INCREASED AND LOSS OF R-WAVE VOLTAGE IN V4 PROBABLY DIFFERENT LEAD POSITION Electronically Signed On 11-13-2022 12:23:27 CDT by Scott Escalante M.D.
--- NOTE | 2022-11-12 23:12 | ED.SOB ---
HPI - SOB/Dyspnea General Chief Complaint: Upper Respiratory Infection Stated Complaint: ambulance Time Seen by Provider: 11/12/22 23:07 Source: patient Mode of arrival: EMS Limitations: clinical condition History of Present Illness HPI Narrative: 62 year old female arrives to the Emergency Department via EMS complaining of difficulty breathing. History of COPD. States onset 5 pm tonight. Denies chest pain. Patient received DuoNeb enroute, SoluMedrol 125 mg IVP, mag sulfate 2 gm, BiPap en route. Cough productive clear phlegm. Denies fever, nausea, vomiting, diarrhea. Smoker. MD elicited complaint: shortness of breath and cough Pertinent past history: COPD Onset (ago): hour(s) (6) Timing: constant Severity: severe Exacerbating factors: nothing Relieving factors: nothing Treatment prior to arrival: oxygen and bronchodilator Related Data Home oxygen amount: none Home Medications Medication Instructions Recorded Confirmed Daily Vitamins for Women 1 tablet PO DAILY 09/15/22 11/13/22 ibuprofen 200 mg PO DAILY 09/15/22 11/13/22 Allergies Allergy/AdvReac Type Severity Reaction Status Date / Time No Known Allergies Allergy Verified 09/14/22 14:12 Review of Systems Review of Systems: All systems reviewed & are unremarkable except as noted in HPI and below Constitutional: Constitutional: Reports as per HPI, Reports no additional constitutional complaints, Denies chills and Denies fever(s) Eyes: Eyes: Reports as per HPI and Reports no additional eye complaints ENT: Reports system reviewed and no additional complaints, except as documented Cardiovascular: Cardiovascular: Reports as per HPI and Reports no additional cardiovascular complaints Respiratory: Respiratory: Reports as per HPI, Reports no additional respiratory complaints, Reports cough, Reports dyspnea and Reports wheezing Gastrointestinal: Gastrointestinal: Reports as per HPI, Reports no additional gastrointestinal complaints, Denies diarrhea, Denies nausea and Denies vomiting Genitourinary: Genitourinary: Reports no additional female genitourinary complaints Musculoskeletal: Musculoskeletal: Reports no additional musculoskeletal complaints Integumentary/Breasts: Skin/Breast: Reports system reviewed and no additional complaints, except as docu Neurologic: Reports system reviewed and no additional complaints, except as documented Psychiatric: Psychiatric: Reports no additional psychiatric complaints Endocrine: Endocrine: Reports no additional endocrine complaints Hematologic/Lymphatic: Hematologic/Lymphatic: Reports no additional hematologic/lymphatic complaints Allergic/Immunologic: Allergic/Immunologic: Reports no additional allergic/immunologic complaints PMFSH Past Medical History Medical History No active medical problems Surgical History Surgical History Bowel obstruction History of appendectomy Family History Family History Other Unknown family medical history Social History Social History Smoking packs per day: 1 Smoking cigarettes per day: 20.0 Years smoked: 50 Smoking pack-years: 50.00 Smoking status: Current every day smoker Tobacco type: cigarettes Second hand tobacco smoke exposure: Yes Alcohol intake: never Substance use: never Substance use type: does not use Lack of Transportation: No Lack of Food: Never True Current Housing: I Have Housing Concerned About Future Housing: No Difficulty Paying Gas/Electric Bills: No Difficulty Paying for Meds: No Currently Unemployed: No Education: Decline to Answer Difficulty w/ Childcare or Family Care: No Spiritual care concerns: No Exam Const: General: No no acute distress Nutritional Appearance: obese Orientation/con
[2022-11-12] MEDS: LORazepam INJ (*CRX) 2 MG/ML VIAL 1 MG IV PUSH (23:15)
[2022-11-12 23:19] VITALS: PULSE 112; RESP 28; O2SAT 94
[2022-11-12] MEDS: ALBUTEROL SULFATE NEB 2.5 MG/3 ML INH 10 MG INHALATION (23:19)
[2022-11-12 23:20] VITALS: PULSE 118
[2022-11-12] MEDS: SODIUM CHLORIDE 0.9% 3 ML NEB FOR INHALATION 6 ML (23:20)
[2022-11-12 23:30] VITALS: BP 157/80; PULSE 98; RESP 22; O2SAT 90
[2022-11-13] VITALS (13 sets, daily range): BP systolic 141–158; BP diastolic 75–90; PULSE 90–113; RESP 20–31; TEMP 37.2; O2SAT 89–100
[2022-11-13 00:13] LABS: Base Excess ABG -2.5 mmol/L (0-2); HCO3 ABG 27.4 mmol/L (23-29); Oxygen Content ABG 20.3 %vol (16.0-22.0); Oxygen Saturation ABG 87.4 % (95-97); PCO2 ABG 68.8 mmHg (35-45); PO2 ABG 60.8 mmHg (80-90); Total Hemoglobin 17.2 g/dL (12.0-18.0); pH ABG 7.22 (7.35-7.45)
[2022-11-13 00:15] LABS: Hematocrit 51.9 % (35.0-49.0); Mean Corpuscular HGB Conc 32.8 g/dL (32.0-36.0); Mean Corpuscular Hemoglobin 32.1 pg (27.0-31.0); Mean Corpuscular Volume 98.1 fL (78.0-102.0); Mean Platelet Volume 10.1 fl (9.2-11.8); Platelet Count Result 334 K/mm3 (150-420); Red Blood Count 5.29 M/mm3 (4.20-5.40); Red Cell Distribution Width 13.1 % (11.6-14.4); White Blood Count 18.8 K/mm3 (4.8-10.8)
[2022-11-13 00:19] LABS: Device SIMPLE MASK; Modified Allen's Test Pass; Site Drawn RIGHT RADIAL
[2022-11-13 00:29] LABS: D Dimer 0.28 mg/L (0.19-0.50)
[2022-11-13 00:33] LABS: Alanine Aminotransferase 37 U/L (14-59); Albumin Level 3.8 g/dL (3.4-5.0); Alkaline Phosphatase 69 U/L (46-116); Anion Gap 8 mmol/L (8-16); Aspartate Amino Transferase 19 U/L (15-37); Bilirubin,Total 0.6 mg/dL (0.00-1.00); Blood Urea Nitrogen 12 mg/dL (7-18); Carbon Dioxide 31 mmol/L (21-32); Chloride 101 mmol/L (98-108); Estimated CRCL calculation 65 ml/min; Estimated Glomerular Filt Rate > 60; Glucose 207 mg/dL (70-99); Osmolality Calculated 295 mOsm/kg (285-295); Potassium 3.4 mmol/L (3.5-5.1); Sodium 140 mmol/L (136-145); Total Protein 7.9 g/dL (6.4-8.2); Troponin I 6.5 ng/L (0.00-60.4)
[2022-11-13] MEDS: AZITHROMYCIN 500 MG/NS 250 ML 500 MG/250 ML BAG 250 MG IVPB (01:10)
[2022-11-13 02:13] LABS: Base Excess ABG -2.9 mmol/L (0-2); HCO3 ABG 24.9 mmol/L (23-29); Oxygen Content ABG 18.4 %vol (16.0-22.0); Oxygen Saturation ABG 87.9 % (95-97); Oxyhemoglobin 85.1 % (94-100); PCO2 ABG 55.3 mmHg (35-45); PO2 ABG 56.5 mmHg (80-90); Total Hemoglobin 15.4 g/dL (12.0-18.0); pH ABG 7.27 (7.35-7.45)
[2022-11-13 02:15] LABS: Device BIPAP; Modified Allen's Test Pass; Site Drawn LEFT RADIAL
--- NOTE | 2022-11-13 02:41 | PC.NURSE ---
1108 son verbal consent to transfer & patient to keep belongings
--- NOTE | 2022-11-19 14:00 | PC.NURSE ---
Final blood culture report, no growth, no further treatment or action needed.
--- NOTE | 2022-11-20 12:56 | PC.NURSE ---
FINAL AEROBIC BLOOD CULTURE RESULTS: ISOLATE 1: MICROCOCCUS SPECIES FROM AEROBIC BOTTLE ONLY. NO C&S TO BE COMPLETED. PER DR WILLETT, NO ACTION NEEDED.
--- NOTE | 2022-11-21 13:36 | PC.NURSE ---
final blood cultures reviewed, patient transferred to [facility] to continued care.
== END 2022-11-13 02:55 | disposition short-term general hospital (02) ==
PROVIDERS: Emergency Provider Emergency Medicine; PCP Internal Medicine
DX: J44.9 Chronic obstructive pulmonary disease, unspecified (principal); J96.02 Acute respiratory failure with hypercapnia; J96.01 Acute respiratory failure with hypoxia; F17.210 Nicotine dependence, cigarettes, uncomplicated; Z79.1 Long term (current) use of non-steroidal anti-inflammatories (NSAID)
CPT/HCPCS: 36415; 36600; 71045; 80053; 82805; 84484; 85027; 85380; 87040; 87147; 93005; 94640; 96361; 96365; 96366; 96367; 96375; 99285; A9270; J0456; J0696; J2060

== ENCOUNTER 2022-11-13 10:01 | Inpatient (IN) | payer OTHER, SELFPAY ==
[2022-11-13] VITALS (22 sets, daily range): BP systolic 114–152; BP diastolic 63–84; PULSE 80–107; RESP 20–28; TEMP 36.4–36.8; O2SAT 93–100; BMI 31.1
--- NOTE | ~2022-11-13 | XR_ITS ---
EXAMINATION: XR chest 1V portable DATE: 11/13/2022 08:17 INDICATION: Shortness of breath TECHNIQUE: frontal view of the chest was obtained. COMPARISON: Chest radiograph dated 11/12/2022 FINDINGS: Pulmonary vascular congestion with increased interstitial pattern in the bilateral lower lung zones w hich could represent associated mild pulmonary edema. No focal airspace opacities, pleural effusion o r pneumothorax. The cardiomediastinal silhouette is normal. IMPRESSION: 1. Pulmonary vascular congestion with mild increased interstitial pattern without focal airspace opac ities in the bilateral lower lung zones which represent mild pulmonary edema or bronchitis. Reviewed, dictated and finalized at location A. IMPRESSION: 1. Pulmonary vascular congestion with mild increased interstitial pattern witho ut focal airspace opacities in the bilateral lower lung zones which represent m ild pulmonary edema or bronchitis.
--- NOTE | 2022-11-13 03:53 | ADMGEN ---
This patient, Jerri Og, was admitted to IMU Room 232-01 on 11/13/2022 at 0335. Patient/family oriented to hospital policies and general routines including ID bracelet, bed and alarms, visiting hours, pain management, procedures, bathroom and other care routines, personal items, smoking policy, room service/diet, and visiting hours. Information on how to activate the Rapid Response Team has been discussed. Patient/Family are encouraged to report perceived risks to care and to ask questions if they do not understand what they are told or what they should do.
[2022-11-13 05:36] LABS: Influenza A QL RT-PCR Negative (Negative); Influenza B QL RT-PCR Negative (Negative); RSV RNA, RT-PCR Negative (Negative); SARS-CoV-2 RNA PCR Negative (Negative)
[2022-11-13 07:00] LABS: Basophils Percent Auto 0.2 % (0.2-1.2); Hematocrit 48.4 % (37.0-47.0); Hemoglobin 15.9 g/dL (12.0-15.0); Immature Granulocyte Absolute 0.08 K/mm3 (0.00-0.031); Immature Granulocyte Percent A 0.5 % (0-0.5); Lymphocytes Absolute Auto 0.99 K/mm3 (0.9-3.2); Lymphocytes Percent Auto 6.3 % (18.3-44.2); Mean Corpuscular HGB Conc 32.9 g/dl (32-36); Mean Corpuscular Hemoglobin 31.9 pg (26-34); Mean Corpuscular Volume 97.2 fl (80-100); Mean Platelet Volume 9.9 fl (7.4-10.4); Monocytes Absolute Auto 0.2 K/mm3 (0.1-0.6); Neutrophils Absolute Auto 14.4 K/mm3 (1.3-6.7); Platelet Count Result 308 k/mm3 (150-375); Red Blood Count 4.98 M/mm3 (4.2-5.4); Red Cell Distribution Width 13.3 % (11.5-14.5); White Blood Count 15.7 K/mm3 (4.5-10.0)
[2022-11-13 07:11] LABS: Anion Gap 10 mmol/L (8-16); Blood Urea Nitrogen 11 mg/dL (7-17); Calcium 8.7 mg/dL (8.4-10.2); Carbon Dioxide 27 mmol/L (22-30); Chloride 102 mmol/L (98-107); Estimated CRCL calculation 89 ml/min; Estimated Glomerular Filt Rate > 60; Glucose 181 mg/dL (65-110); Magnesium 2.4 mg/dL (1.6-2.3); Potassium 4.1 mmol/L (3.4-5.0); Sodium 139 mmol/L (137-145)
[2022-11-13 07:18] LABS: Atypical Lymphocytes Present; Platelet Estimate Adequate (Adequate); Schistocytes None Seen (NORMAL)
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
[2022-11-13] MEDS: ALBUTEROL SULFATE NEB 2.5 MG/3 ML INH INHALATION ×4 (09:01→19:37)
[2022-11-13] MEDS: IPRATROPIUM BR 0.02% INH SOLN 0.5 MG/2.5 ML VIAL INHALATION ×4 (09:01→19:37)
[2022-11-13] MEDS: FUROSEMIDE INJ 40 MG/4 ML VIAL IV PUSH ×2 (09:23→17:01)
[2022-11-13] MEDS: ENOXAPARIN 40 MG/0.4 ML SYRINGE SUB-Q (09:23)
[2022-11-13] MEDS: NICOTINE (*PBKC) 21 MG PATCH 1 PATCH TRANSDERM (09:28)
[2022-11-13 09:32] LABS: NT Pro B Type Natriuretic Pept 32 pg/mL (19.9-100)
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
[2022-11-13] MEDS: guaiFENesin/DEXTROMETHORPHAN 10 ML UDC PO (17:01)
[2022-11-13] MEDS: methylPREDNISolone SOD SUCC 125 MG VIAL 80 MG IV PUSH (21:04)
[2022-11-13] MEDS: cefTRIAXone 2 GM/NS 100 ML 2 GM/100 ML BAG IVPB (21:05)
[2022-11-13] MEDS: AZITHROMYCIN 500 MG/NS 250 ML 500 MG/250 ML BAG 250 MG IVPB (21:05)
[2022-11-14] VITALS (15 sets, daily range): BP systolic 114–137; BP diastolic 61–72; PULSE 81–101; RESP 20–24; TEMP 36.2–36.8; O2SAT 91–95
[2022-11-14] MEDS: ACETAMINOPHEN 325 MG TABLET 650 MG PO (02:36)
[2022-11-14 05:04] LABS: Basophils Percent Auto 0.2 % (0.2-1.2); Hematocrit 50.2 % (37.0-47.0); Hemoglobin 16.3 g/dL (12.0-15.0); Immature Granulocyte Absolute 0.08 K/mm3 (0.00-0.031); Immature Granulocyte Percent A 0.6 % (0-0.5); Lymphocytes Absolute Auto 0.96 K/mm3 (0.9-3.2); Lymphocytes Percent Auto 7.3 % (18.3-44.2); Mean Corpuscular HGB Conc 32.5 g/dl (32-36); Mean Corpuscular Hemoglobin 31.8 pg (26-34); Mean Corpuscular Volume 97.9 fl (80-100); Mean Platelet Volume 10.2 fl (7.4-10.4); Monocytes Absolute Auto 0.1 K/mm3 (0.1-0.6); Monocytes Percent Auto 0.8 % (2.6-8.5); Neutrophils Absolute Auto 12.1 K/mm3 (1.3-6.7); Neutrophils Percent Auto 91.1 % (45.5-73.1); Platelet Count Result 331 k/mm3 (150-375); Red Blood Count 5.13 M/mm3 (4.2-5.4); Red Cell Distribution Width 13.2 % (11.5-14.5); White Blood Count 13.2 K/mm3 (4.5-10.0)
[2022-11-14 05:13] LABS: Alanine Aminotransferase 31 U/L (6-35); Alkaline Phosphatase 57 U/L (38-126); Anion Gap 6 mmol/L (8-16); Aspartate Amino Transferase 29 U/L (14-36); Bilirubin,Total 0.4 mg/dL (0.2-1.3); Blood Urea Nitrogen 17 mg/dL (7-17); Calcium 8.9 mg/dL (8.4-10.2); Carbon Dioxide 31 mmol/L (22-30); Chloride 100 mmol/L (98-107); Estimated CRCL calculation 74 ml/min; Estimated Glomerular Filt Rate > 60; Glucose 205 mg/dL (65-110); Magnesium 2.1 mg/dL (1.6-2.3); Potassium 4.2 mmol/L (3.4-5.0); Sodium 137 mmol/L (137-145)
[2022-11-14] MEDS: methylPREDNISolone SOD SUCC 125 MG VIAL 80 MG IV PUSH ×3 (05:34→21:06)
[2022-11-14] MEDS: ENOXAPARIN 40 MG/0.4 ML SYRINGE SUB-Q (08:27)
[2022-11-14] MEDS: FUROSEMIDE INJ 40 MG/4 ML VIAL IV PUSH ×2 (08:27→16:52)
[2022-11-14] MEDS: NICOTINE (*PBKC) 21 MG PATCH 1 PATCH TRANSDERM (08:27)
[2022-11-14] MEDS: ALBUTEROL SULFATE NEB 2.5 MG/3 ML INH INHALATION ×4 (08:57→20:39)
[2022-11-14] MEDS: IPRATROPIUM BR 0.02% INH SOLN 0.5 MG/2.5 ML VIAL INHALATION ×4 (08:57→20:39)
--- NOTE | 2022-11-14 11:48 | PM.PNPUL ---
Progress Note: A&P Assessment and Plan (1) Acute respiratory failure with hypoxia and hypercapnia: Code(s): J96.01 - Acute respiratory failure with hypoxia; J96.02 - Acute respiratory failure with hypercapnia Status: Acute (2) COPD (chronic obstructive pulmonary disease): Qualifiers: COPD type: COPD with acute exacerbation Qualified Code(s): J44.1 - Chronic obstructive pulmonary disease with (acute) exacerbation Code(s): J44.9 - Chronic obstructive pulmonary disease, unspecified Status: Acute Assessment and Plan: This 62-year-old female presented with hypercapnic respiratory failure related to COPD exacerbation. On admission the patient had evidence of lung hyperinflation that improved following treatment with nebulized short-acting bronchodilators BiPAP support. Continues to have cough but less than before. She did not use BiPAP support at night. On physical exam today there is better air entry to lungs and less hyperinflation. Patient appears more comfortable on just supplemental oxygen. Plan: Continue with current dose of IV steroids, supplemental oxygen, out of bed to chair, short-acting bronchodilators, DVT prophylaxis. (3) Tobacco dependence: Code(s): F17.200 - Nicotine dependence, unspecified, uncomplicated Status: Acute Subjective Date/time seen: 11/14/22 11:48 Interval history: Patient did not use BiPAP support last night. Currently on just supplemental oxygen via nasal cannula. Has less cough and less chest congestion. On IV steroids since yesterday Review of Systems Review of Systems: All systems reviewed & are unremarkable except as noted in HPI and below (HPI and below) Exam Narrative: GENERAL APPEARANCE: Well developed, well nourished, alert and cooperative, and appears to be in in mild respiratory distress while on supplemental oxygen, sitting up in bed SKIN: Inspection of the skin reveals no rashes, ulcerations or petechiae. HEENT: Sclerae anicteric and conjunctivae pink and moist. Extraocular movements were intact and pupils were equal, round, and reactive to light. The oral mucosa, hard and soft palate, tongue and posterior pharynx were normal. NECK: Supple. There was no thyroid enlargement, and no tenderness, or masses were felt. No JVD LUNGS: Better air entry to lugs, lungs less hyperinflated than yesterday CARDIAC: There was a regular rate and rhythm without any murmurs, gallops, rubs. ABDOMEN: Soft and nontender with normal bowel sounds. There was no organomegaly. LYMPH NODES: No lymphadenopathy was appreciated in the neck EXTREMITIES: No cyanosis, clubbing or edema. NEUROLOGIC: Alert and oriented x 3. Normal affect. Objective Data Vital Signs Vital Signs: Vital Signs - 24 hr 11/13/22 12:00 11/13/22 12:00 11/13/22 13:17 Temperature 36.4 C Pulse Rate 82 93 98 Respiratory Rate 20 20 Blood Pressure 137/77 Pulse Oximetry 95 Oxygen Delivery Oxygen Flow Rate Fraction of Inspired Oxygen 11/13/22 13:19 11/13/22 13:31 11/13/22 14:00 Temperature Pulse Rate 98 106 H 107 H Respiratory Rate 20 20 Blood Pressure Pulse Oximetry 95 Oxygen Delivery High Flow Nasal Cannula Oxygen Flow Rate 4 Fraction of Inspired Oxygen 11/13/22 16:00 11/13/22 16:00 11/13/22 16:58 Temperature Pulse Rate 98 92 Respiratory Rate 20 Blood Pressure Pulse Oximetry 95 Oxygen Delivery High Flow Nasal Cannula Oxygen Flow Rate 4 Fraction of Inspired Oxygen 11/13/22 17:08 11/13/22 16:00 11/13/22 19:38 Temperature 36.4 C L Pulse Rate 98 105 H 90 Respiratory Rate 20 20 22 H Blood Pressure 124/63 Pulse Oximetry 93 94 Oxygen Delivery Nasal Cannula Oxygen Flow Rate 4 Fraction of Inspired Oxygen 36 11/13/22 19:38 11/13/22 19:50 11/13/22 19:51 Temperature 36.5 C Pulse Rate 90 92 88 Respiratory Rate 22 H 22 H 22 H Blood Pressure 126/69 Pulse Oximetry 93 Oxygen Delivery Oxy
--- NOTE | 2022-11-14 15:36 | P.PNIM_ITS ---
Progress Note: A&P Assessment and Plan (1) COPD (chronic obstructive pulmonary disease): Qualifiers: COPD type: COPD with acute exacerbation Qualified Code(s): J44.1 - Chronic obstructive pulmonary disease with (acute) exacerbation Code(s): J44.9 - Chronic obstructive pulmonary disease, unspecified Status: Acute Assessment and Plan: * Presented with complaints of dyspnea and worsening shortness of breath * Patient chronically on 4 L of O2 at home * Blood gas pH 7.27, PCO2 55.3, PO2 56.5, HCO3 24.9, Saturations 87.9 * Start patient on duonebs * Restart Trelegy when appropriate * Continue bipap as needed * Chest xray indicates pulmonary vascular congestion * Supplemental oxygen, wean to maintain saturations >90% * Pulmonology recommends starting IV Solu-Medrol (2) Acute respiratory failure with hypoxia and hypercapnia: Code(s): J96.01 - Acute respiratory failure with hypoxia; J96.02 - Acute respiratory failure with hypercapnia Status: Acute Assessment and Plan: * Presented with complaints of dyspnea and worsening shortness of breath * Blood gas pH 7.27, PCO2 55.3, PO2 56.5, HCO3 24.9, Saturations 87.9 * Appears to be respiratory acidosis * Continue bipap with 40% FIO2 * Neb treatments * trend respiratory status * Wean to maintain saturations >90. (3) Tobacco dependence: Code(s): F17.200 - Nicotine dependence, unspecified, uncomplicated Status: Acute Assessment and Plan: * Nicotine patch, and gum * Smoking cessation education given 8 minutes (4) CHF (congestive heart failure): Qualifiers: Heart failure chronicity: acute Heart failure type: unspecified Qualified Code(s): I50.9 - Heart failure, unspecified Code(s): I50.9 - Heart failure, unspecified Status: Acute Assessment and Plan: * Not in acute exacerbation. * BNP 32 * Chest xray showed pulmonary vascular congestion * Trend urine output * Daily weights * Most likely contributing to the respiratory failure * IV lasix 40mg IV for now * Strict I and Os Subjective Date/time seen: 11/14/22 15:36 Interval history: Patient feeling much better today. Hopeful we can decelerate her IV steroids tomorrow. She is doing well on her home oxygen amount and did not use BiPAP last night. She has somewhat of a cough that appears to be chronic mild sputum production that is intermittent and clear. States that she had ran out of her inhalers approximately 5 days prior to ED arrival and this could be contributing to her COPD exacerbation. She states shortness of breath is at baseline. Denies any chest pain, nausea, vomiting abdominal pain, dizziness, lightheadedness and lower extremity swelling. Exam Narrative: GENERAL: Comfortable, no acute distress HENMT: moist mucous membranes EYES: EOM intact b/l NECK: no lymphadenopathy RESPIRATORY: clear to auscultation CARDIO: RRR GI: soft, nontender, bowel sounds present SKIN: no rashes EXTREMITIES: no edema, redness or tenderness Objective Data Vital Signs Vital Signs: Vital Signs - 24 hr 11/13/22 16:00 11/13/22 16:00 11/13/22 16:58 Temperature Pulse Rate 98 92 Respiratory Rate 20 Blood Pressure Pulse Oximetry 95 Oxygen Delivery High Flow Nasal Cannula
--- NOTE | 2022-11-14 15:36 | PM.IMPN ---
Progress Note: A&P Assessment and Plan (1) COPD (chronic obstructive pulmonary disease): Qualifiers: COPD type: COPD with acute exacerbation Qualified Code(s): J44.1 - Chronic obstructive pulmonary disease with (acute) exacerbation Code(s): J44.9 - Chronic obstructive pulmonary disease, unspecified Status: Acute Assessment and Plan: Presented with complaints of dyspnea and worsening shortness of breath Patient chronically on 4 L of O2 at home Blood gas pH 7.27, PCO2 55.3, PO2 56.5, HCO3 24.9, Saturations 87.9 Start patient on duonebs Restart Trelegy when appropriate Continue bipap as needed Chest xray indicates pulmonary vascular congestion Supplemental oxygen, wean to maintain saturations >90% Pulmonology recommends starting IV Solu-Medrol (2) Acute respiratory failure with hypoxia and hypercapnia: Code(s): J96.01 - Acute respiratory failure with hypoxia; J96.02 - Acute respiratory failure with hypercapnia Status: Acute Assessment and Plan: Presented with complaints of dyspnea and worsening shortness of breath Blood gas pH 7.27, PCO2 55.3, PO2 56.5, HCO3 24.9, Saturations 87.9 Appears to be respiratory acidosis Continue bipap with 40% FIO2 Neb treatments trend respiratory status Wean to maintain saturations >90. (3) Tobacco dependence: Code(s): F17.200 - Nicotine dependence, unspecified, uncomplicated Status: Acute Assessment and Plan: Nicotine patch, and gum Smoking cessation education given 8 minutes (4) CHF (congestive heart failure): Qualifiers: Heart failure chronicity: acute Heart failure type: unspecified Qualified Code(s): I50.9 - Heart failure, unspecified Code(s): I50.9 - Heart failure, unspecified Status: Acute Assessment and Plan: Not in acute exacerbation. BNP 32 Chest xray showed pulmonary vascular congestion Trend urine output Daily weights Most likely contributing to the respiratory failure IV lasix 40mg IV for now Strict I and Os Subjective Date/time seen: 11/14/22 15:36 Interval history: Patient feeling much better today. Hopeful we can decelerate her IV steroids tomorrow. She is doing well on her home oxygen amount and did not use BiPAP last night. She has somewhat of a cough that appears to be chronic mild sputum production that is intermittent and clear. States that she had ran out of her inhalers approximately 5 days prior to ED arrival and this could be contributing to her COPD exacerbation. She states shortness of breath is at baseline. Denies any chest pain, nausea, vomiting abdominal pain, dizziness, lightheadedness and lower extremity swelling. Exam Narrative: GENERAL: Comfortable, no acute distress HENMT: moist mucous membranes EYES: EOM intact b/l NECK: no lymphadenopathy RESPIRATORY: clear to auscultation CARDIO: RRR GI: soft, nontender, bowel sounds present SKIN: no rashes EXTREMITIES: no edema, redness or tenderness Objective Data Vital Signs Vital Signs: Vital Signs - 24 hr 11/13/22 16:00 11/13/22 16:00 11/13/22 16:58 Temperature Pulse Rate 98 92 Respiratory Rate 20 Blood Pressure Pulse Oximetry 95 Oxygen Delivery High Flow Nasal Cannula Oxygen Flow Rate 4 Fraction of Inspired Oxygen 11/13/22 17:08 11/13/22 16:00 11/13/22 19:38 Temperature 97.5 F L Pulse Rate 98 105 H 90 Respiratory Rate 20 20 22 H Blood Pressure 124/63 Pulse Oximetry 93 94 Oxygen Delivery Nasal Cannula Oxygen Flow Rate 4 Fraction of Inspired Oxygen 36 11/13/22 19:38 11/13/22 19:50 11/13/22 19:51 Temperature 97.7 F Pulse Rate 90 92 88 Respiratory Rate 22 H 22 H 22 H Blood Pressure 126/69 Pulse Oximetry 93 Oxygen Delivery Oxygen Flow Rate Fraction of Inspired Oxygen 11/13/22 20:00 11/13/22 20:00 11/14/22 00:00 Temperature Pulse
[2022-11-14] MEDS: AZITHROMYCIN 500 MG/NS 250 ML 500 MG/250 ML BAG 250 MG IVPB (21:07)
[2022-11-14] MEDS: cefTRIAXone 2 GM/NS 100 ML 2 GM/100 ML BAG IVPB (21:07)
[2022-11-15] VITALS (19 sets, daily range): BP systolic 103–138; BP diastolic 36–83; PULSE 77–95; RESP 8–20; TEMP 36.2–36.6; O2SAT 90–97
[2022-11-15] MEDS: IPRATROPIUM BR 0.02% INH SOLN 0.5 MG/2.5 ML VIAL INHALATION ×6 (01:08→20:15)
[2022-11-15] MEDS: ALBUTEROL SULFATE NEB 2.5 MG/3 ML INH INHALATION ×6 (01:09→20:13)
--- NOTE | 2022-11-15 02:10 | PC.NURSE ---
This patient, Jerri Og, was transferred to [[id number] ] on 11/15/22 at 0210. Personal belongings sent with patient. Report given to [Jeanmarie leroy ]. Appropriate documentation sent with patient.
[2022-11-15] MEDS: guaiFENesin/DEXTROMETHORPHAN 10 ML UDC PO ×2 (03:44→22:03)
[2022-11-15] MEDS: methylPREDNISolone SOD SUCC 125 MG VIAL 80 MG IV PUSH (06:08)
[2022-11-15 06:38] LABS: Basophils Percent Auto 0.1 % (0.2-1.2); Hematocrit 49.1 % (37.0-47.0); Hemoglobin 15.9 g/dL (12.0-15.0); Immature Granulocyte Absolute 0.19 K/mm3 (0.00-0.031); Immature Granulocyte Percent A 0.9 % (0-0.5); Lymphocytes Absolute Auto 1.14 K/mm3 (0.9-3.2); Lymphocytes Percent Auto 5.3 % (18.3-44.2); Mean Corpuscular HGB Conc 32.4 g/dl (32-36); Mean Corpuscular Hemoglobin 31.8 pg (26-34); Mean Corpuscular Volume 98.2 fl (80-100); Mean Platelet Volume 10.3 fl (7.4-10.4); Monocytes Absolute Auto 0.9 K/mm3 (0.1-0.6); Monocytes Percent Auto 4.2 % (2.6-8.5); Neutrophils Absolute Auto 19.2 K/mm3 (1.3-6.7); Neutrophils Percent Auto 89.5 % (45.5-73.1); Platelet Count Result 345 k/mm3 (150-375); Red Cell Distribution Width 13.3 % (11.5-14.5); White Blood Count 21.4 K/mm3 (4.5-10.0)
[2022-11-15 06:56] LABS: Alanine Aminotransferase 31 U/L (6-35); Alkaline Phosphatase 54 U/L (38-126); Anion Gap 7 mmol/L (8-16); Aspartate Amino Transferase 27 U/L (14-36); Bilirubin,Total 0.4 mg/dL (0.2-1.3); Blood Urea Nitrogen 23 mg/dL (7-17); Calcium 9.2 mg/dL (8.4-10.2); Carbon Dioxide 32 mmol/L (22-30); Chloride 98 mmol/L (98-107); Estimated CRCL calculation 75 ml/min; Estimated Glomerular Filt Rate > 60; Glucose 199 mg/dL (65-110); Potassium 3.7 mmol/L (3.4-5.0); Sodium 137 mmol/L (137-145)
--- NOTE | 2022-11-15 08:59 | PM.PNPUL ---
Progress Note: A&P Assessment and Plan (1) Acute respiratory failure with hypoxia and hypercapnia: Code(s): J96.01 - Acute respiratory failure with hypoxia; J96.02 - Acute respiratory failure with hypercapnia Status: Acute (2) COPD (chronic obstructive pulmonary disease): Qualifiers: COPD type: COPD with acute exacerbation Qualified Code(s): J44.1 - Chronic obstructive pulmonary disease with (acute) exacerbation Code(s): J44.9 - Chronic obstructive pulmonary disease, unspecified Status: Acute Assessment and Plan: This 62-year-old female presented with hypercapnic respiratory failure related to COPD exacerbation. On admission the patient had evidence of lung hyperinflation that improved following treatment with nebulized short-acting bronchodilators BiPAP support. Continues to have cough but less than before. Not using BiPAP at night. Overall respiratory status improving slowly. Plan: Will lower the IV steroids, continue with antibiotics, DVT prophylaxis, short-acting bronchodilators, supplemental oxygen out of bed to chair. I would discontinue the Bah catheter. (3) Tobacco dependence: Code(s): F17.200 - Nicotine dependence, unspecified, uncomplicated Status: Acute Subjective Date/time seen: 11/15/22 08:59 Interval history: Patient doing little better. Still coughing but less than before. She remains on supplemental oxygen. Afebrile. Review of Systems Review of Systems: All systems reviewed & are unremarkable except as noted in HPI and below (HPI and below) Exam Narrative: GENERAL APPEARANCE: Well developed, well nourished, alert and cooperative, and appears to be in in mild respiratory distress while on supplemental oxygen, sitting up in bed SKIN: Inspection of the skin reveals no rashes, ulcerations or petechiae. HEENT: Sclerae anicteric and conjunctivae pink and moist. Extraocular movements were intact and pupils were equal, round, and reactive to light. The oral mucosa, hard and soft palate, tongue and posterior pharynx were normal. NECK: Supple. There was no thyroid enlargement, and no tenderness, or masses were felt. No JVD LUNGS: Better air entry to lugs, lungs less hyperinflated than twp days ago CARDIAC: There was a regular rate and rhythm without any murmurs, gallops, rubs. ABDOMEN: Soft and nontender with normal bowel sounds. There was no organomegaly. LYMPH NODES: No lymphadenopathy was appreciated in the neck EXTREMITIES: No cyanosis, clubbing or edema. NEUROLOGIC: Alert and oriented x 3. Normal affect. Objective Data Vital Signs Vital Signs: Vital Signs - 24 hr 11/14/22 09:21 11/14/22 12:00 11/14/22 12:00 Temperature 36.3 C L Pulse Rate 98 101 H 93 Respiratory Rate 20 20 Blood Pressure 130/68 Pulse Oximetry 95 Oxygen Delivery Oxygen Flow Rate Fraction of Inspired Oxygen 11/14/22 13:32 11/14/22 13:47 11/14/22 16:00 Temperature 36.6 C Pulse Rate 101 H 100 97 Respiratory Rate 20 20 24 H Blood Pressure 126/70 Pulse Oximetry 91 Oxygen Delivery Oxygen Flow Rate Fraction of Inspired Oxygen 11/14/22 16:49 11/14/22 17:03 11/14/22 20:41 Temperature Pulse Rate 96 98 Respiratory Rate 20 20 Blood Pressure Pulse Oximetry 93 Oxygen Delivery Nasal Cannula Oxygen Flow Rate 4 Fraction of Inspired Oxygen 11/14/22 20:43 11/14/22 20:57 11/14/22 20:00 Temperature 36.4 C L Pulse Rate 98 100 99 Respiratory Rate 20 20 20 Blood Pressure 124/72 Pulse Oximetry 94 Oxygen Delivery Oxygen Flow Rate Fraction of Inspired Oxygen 11/14/22 20:00 11/15/22 00:00 11/15/22 01:09 Temperature 36.5 C Pulse Rate 100 91 81 Respiratory Rate 20 15 18 Blood Pressure 116/67 Pulse Oximetry 93 93 Oxygen Delivery Nasal Cannula Oxygen Flow Rate 4 Fraction of Inspired Oxygen 36 11/15/22 02:18 11/15/22 04:20 11/15/22 01:23 Temperature 36.2 C L Pulse Rate 89 84 85 R
[2022-11-15] MEDS: ENOXAPARIN 40 MG/0.4 ML SYRINGE SUB-Q (09:26)
--- NOTE | 2022-11-15 09:26 | P.CDI_ITS ---
CDI Query Clarification Request Documented history of CHF. CHF noted in the assessment and plan. Lasix listed as a home medication. Patient receiving Lasix. Pulmonary edema noted on the 11/13/22 chest xray. Please specify type and acuity of heart failure if known. * Acute * Chronic * Acute on Chronic * Unknown * Systolic * Diastolic * Combined Systolic and Diastolic * Unknown <Aida Horowitz RN - Last Filed: 11/15/22 09:31> Clarified Diagnosis Clarified Diagnosis: chronic diastolic dysfunction <Meeta Aden PA-C - Last Filed: 11/16/22 14:32>
[2022-11-15] MEDS: NICOTINE (*PBKC) 21 MG PATCH 1 PATCH TRANSDERM (09:27)
[2022-11-15] MEDS: FUROSEMIDE 20 MG TABLET PO (09:33)
--- NOTE | 2022-11-15 15:25 | P.PNIM_ITS ---
Progress Note: A&P Assessment and Plan (1) COPD (chronic obstructive pulmonary disease): Qualifiers: COPD type: COPD with acute exacerbation Qualified Code(s): J44.1 - Chronic obstructive pulmonary disease with (acute) exacerbation Code(s): J44.9 - Chronic obstructive pulmonary disease, unspecified Status: Acute Assessment and Plan: * Presented with complaints of dyspnea and worsening shortness of breath * Patient chronically on 4 L of O2 at home * Blood gas pH 7.27, PCO2 55.3, PO2 56.5, HCO3 24.9, Saturations 87.9 * Start patient on duonebs * Restart Trelegy when appropriate * Continue bipap as needed * Chest xray indicates pulmonary vascular congestion * Supplemental oxygen, wean to maintain saturations >90% * Patient started on IV Solu-Medrol and decelerated per pulmonology (2) Acute respiratory failure with hypoxia and hypercapnia: Code(s): J96.01 - Acute respiratory failure with hypoxia; J96.02 - Acute respiratory failure with hypercapnia Status: Acute Assessment and Plan: * Presented with complaints of dyspnea and worsening shortness of breath * Blood gas pH 7.27, PCO2 55.3, PO2 56.5, HCO3 24.9, Saturations 87.9 * Appears to be respiratory acidosis * Continue bipap with 40% FIO2 * Neb treatments * trend respiratory status * Wean to maintain saturations >90. (3) Tobacco dependence: Code(s): F17.200 - Nicotine dependence, unspecified, uncomplicated Status: Acute Assessment and Plan: * Nicotine patch, and gum * Smoking cessation education given 8 minutes (4) CHF (congestive heart failure): Qualifiers: Heart failure chronicity: acute Heart failure type: unspecified Qualified Code(s): I50.9 - Heart failure, unspecified Code(s): I50.9 - Heart failure, unspecified Status: Acute Assessment and Plan: * Not in acute exacerbation. * BNP 32 * Chest xray showed pulmonary vascular congestion * Trend urine output * Daily weights * Most likely contributing to the respiratory failure * IV lasix 40mg IV for now * Strict I and Os Subjective Date/time seen: 11/15/22 15:25 Interval history: Patient feeling about the same today and breathing better. She is back on her home oxygen setting. Patient's IV steroids were decreased. She is not re quiring BiPAP for right now. Catheter was pulled today and voiding trial performed. Will reinsert catheter if patient is unable to void. Exam Narrative: GENERAL: Comfortable, no acute distress HENMT: moist mucous membranes EYES: EOM intact b/l NECK: no lymphadenopathy RESPIRATORY: clear to auscultation CARDIO: RRR GI: soft, nontender, bowel sounds present SKIN: no rashes EXTREMITIES: no edema, redness or tenderness Objective Data Vital Signs Vital Signs: Vital Signs - 24 hr 11/14/22 16:00 11/14/22 16:49 11/14/22 17:03 Temperature 97.9 F Pulse Rate 97 96 98 Respiratory Rate 24 H 20 20 Blood Pressure 126/70 Pulse Oximetry 91 Oxygen Delivery Oxygen Flow Rate Fraction of Inspired Oxygen 11/14/22 20:41 11/14/22 20:43 11/14/22 20:57 Temperature Pulse Rate 98 100 Respiratory Rate 20 20 Blood Pressure Pulse
--- NOTE | 2022-11-15 15:25 | PM.IMPN ---
Progress Note: A&P Assessment and Plan (1) COPD (chronic obstructive pulmonary disease): Qualifiers: COPD type: COPD with acute exacerbation Qualified Code(s): J44.1 - Chronic obstructive pulmonary disease with (acute) exacerbation Code(s): J44.9 - Chronic obstructive pulmonary disease, unspecified Status: Acute Assessment and Plan: Presented with complaints of dyspnea and worsening shortness of breath Patient chronically on 4 L of O2 at home Blood gas pH 7.27, PCO2 55.3, PO2 56.5, HCO3 24.9, Saturations 87.9 Start patient on duonebs Restart Trelegy when appropriate Continue bipap as needed Chest xray indicates pulmonary vascular congestion Supplemental oxygen, wean to maintain saturations >90% Patient started on IV Solu-Medrol and decelerated per pulmonology (2) Acute respiratory failure with hypoxia and hypercapnia: Code(s): J96.01 - Acute respiratory failure with hypoxia; J96.02 - Acute respiratory failure with hypercapnia Status: Acute Assessment and Plan: Presented with complaints of dyspnea and worsening shortness of breath Blood gas pH 7.27, PCO2 55.3, PO2 56.5, HCO3 24.9, Saturations 87.9 Appears to be respiratory acidosis Continue bipap with 40% FIO2 Neb treatments trend respiratory status Wean to maintain saturations >90. (3) Tobacco dependence: Code(s): F17.200 - Nicotine dependence, unspecified, uncomplicated Status: Acute Assessment and Plan: Nicotine patch, and gum Smoking cessation education given 8 minutes (4) CHF (congestive heart failure): Qualifiers: Heart failure chronicity: acute Heart failure type: unspecified Qualified Code(s): I50.9 - Heart failure, unspecified Code(s): I50.9 - Heart failure, unspecified Status: Acute Assessment and Plan: Not in acute exacerbation. BNP 32 Chest xray showed pulmonary vascular congestion Trend urine output Daily weights Most likely contributing to the respiratory failure IV lasix 40mg IV for now Strict I and Os Subjective Date/time seen: 11/15/22 15:25 Interval history: Patient feeling about the same today and breathing better. She is back on her home oxygen setting. Patient's IV steroids were decreased. She is not requiring BiPAP for right now. Catheter was pulled today and voiding trial performed. Will reinsert catheter if patient is unable to void. Exam Narrative: GENERAL: Comfortable, no acute distress HENMT: moist mucous membranes EYES: EOM intact b/l NECK: no lymphadenopathy RESPIRATORY: clear to auscultation CARDIO: RRR GI: soft, nontender, bowel sounds present SKIN: no rashes EXTREMITIES: no edema, redness or tenderness Objective Data Vital Signs Vital Signs: Vital Signs - 24 hr 11/14/22 16:00 11/14/22 16:49 11/14/22 17:03 Temperature 97.9 F Pulse Rate 97 96 98 Respiratory Rate 24 H 20 20 Blood Pressure 126/70 Pulse Oximetry 91 Oxygen Delivery Oxygen Flow Rate Fraction of Inspired Oxygen 11/14/22 20:41 11/14/22 20:43 11/14/22 20:57 Temperature Pulse Rate 98 100 Respiratory Rate 20 20 Blood Pressure Pulse Oximetry 93 Oxygen Delivery Nasal Cannula Oxygen Flow Rate 4 Fraction of Inspired Oxygen 11/14/22 20:00 11/14/22 20:00 11/15/22 00:00 Temperature 97.5 F L 97.7 F Pulse Rate 99 100 91 Respiratory Rate 20 20 15 Blood Pressure 124/72 116/67 Pulse Oximetry 94 93 93 Oxygen Delivery Nasal Cannula Oxygen Flow Rate 4 Fraction of Inspired Oxygen 36 11/15/22 01:09 11/15/22 02:18 11/15/22 04:20 Temperature 97.1 F L Pulse Rate 81 89 84 Respiratory Rate 18 20 18 Blood Pressure 103/67 Pulse Oximetry 92 Oxygen Delivery Oxygen Flow Rate Fraction of Inspired Oxygen 11/15/22 01:23 11/15/22 06:06 11/15/22 04:33 Temperature Pulse Rate 85 86 87 Respiratory Rate 1
[2022-11-15] MEDS: methylPREDNISolone SOD SUCC 125 MG VIAL 60 MG IV PUSH (17:00)
[2022-11-15] MEDS: AZITHROMYCIN 500 MG/NS 250 ML 500 MG/250 ML BAG 250 MG IVPB (20:47)
[2022-11-15] MEDS: cefTRIAXone 2 GM/NS 100 ML 2 GM/100 ML BAG IVPB (22:00)
[2022-11-16] VITALS (23 sets, daily range): BP systolic 121–151; BP diastolic 73–87; PULSE 65–96; RESP 11–25; TEMP 35.8–36.5; O2SAT 92–100
[2022-11-16] MEDS: IPRATROPIUM BR 0.02% INH SOLN 0.5 MG/2.5 ML VIAL INHALATION ×6 (00:25→21:30)
[2022-11-16] MEDS: ALBUTEROL SULFATE NEB 2.5 MG/3 ML INH INHALATION ×6 (00:25→21:29)
[2022-11-16 06:34] LABS: Basophils Percent Auto 0.1 % (0.2-1.2); Hematocrit 45.8 % (37.0-47.0); Hemoglobin 15.2 g/dL (12.0-15.0); Immature Granulocyte Absolute 0.13 K/mm3 (0.00-0.031); Immature Granulocyte Percent A 0.7 % (0-0.5); Lymphocytes Absolute Auto 1.27 K/mm3 (0.9-3.2); Lymphocytes Percent Auto 7.1 % (18.3-44.2); Mean Corpuscular HGB Conc 33.2 g/dl (32-36); Mean Corpuscular Hemoglobin 32.1 pg (26-34); Mean Corpuscular Volume 96.8 fl (80-100); Mean Platelet Volume 10.3 fl (7.4-10.4); Monocytes Absolute Auto 0.8 K/mm3 (0.1-0.6); Monocytes Percent Auto 4.2 % (2.6-8.5); Neutrophils Absolute Auto 15.7 K/mm3 (1.3-6.7); Neutrophils Percent Auto 87.9 % (45.5-73.1); Platelet Count Result 324 k/mm3 (150-375); Red Blood Count 4.73 M/mm3 (4.2-5.4); Red Cell Distribution Width 13.2 % (11.5-14.5); White Blood Count 17.9 K/mm3 (4.5-10.0)
[2022-11-16 07:20] LABS: Alanine Aminotransferase 35 U/L (6-35); Albumin Level 4.1 g/dL (3.5-5.1); Alkaline Phosphatase 45 U/L (38-126); Anion Gap 6 mmol/L (8-16); Aspartate Amino Transferase 33 U/L (14-36); Bilirubin,Total 0.4 mg/dL (0.2-1.3); Blood Urea Nitrogen 24 mg/dL (7-17); Calcium 9.1 mg/dL (8.4-10.2); Carbon Dioxide 34 mmol/L (22-30); Chloride 96 mmol/L (98-107); Estimated CRCL calculation 75 ml/min; Estimated Glomerular Filt Rate > 60; Glucose 187 mg/dL (65-110); Sodium 136 mmol/L (137-145)
[2022-11-16] MEDS: ENOXAPARIN 40 MG/0.4 ML SYRINGE SUB-Q (09:24)
[2022-11-16] MEDS: NICOTINE (*PBKC) 21 MG PATCH 1 PATCH TRANSDERM (09:24)
[2022-11-16] MEDS: FUROSEMIDE 20 MG TABLET PO (09:24)
[2022-11-16] MEDS: methylPREDNISolone SOD SUCC 125 MG VIAL 60 MG IV PUSH ×2 (09:25→17:17)
[2022-11-16 09:36] LABS: Hemoglobin A1C 6.9 % (<5.7)
--- NOTE | 2022-11-16 10:52 | PM.PNPUL ---
Progress Note: A&P Assessment and Plan (1) Acute respiratory failure with hypoxia and hypercapnia: Code(s): J96.01 - Acute respiratory failure with hypoxia; J96.02 - Acute respiratory failure with hypercapnia Status: Acute (2) COPD (chronic obstructive pulmonary disease): Qualifiers: COPD type: COPD with acute exacerbation Qualified Code(s): J44.1 - Chronic obstructive pulmonary disease with (acute) exacerbation Code(s): J44.9 - Chronic obstructive pulmonary disease, unspecified Status: Acute Assessment and Plan: This 62-year-old female presented with hypercapnic respiratory failure related to COPD exacerbation. On admission the patient had evidence of lung hyperinflation that improved following treatment with nebulized short-acting bronchodilators BiPAP support. Continues to have cough but less than before. Not using BiPAP at night. Overall respiratory status improving slowly. She continues to have a cough with deep inspirations. On physical exam she has less lung hyperinflation less wheezing but chest is still congested. Plan: Continue with current regimen of IV steroids, antibiotics, DVT prophylaxis, short-acting bronchodilators, supplemental oxygen. Patient is not ready to get discharged home as yet. (3) Tobacco dependence: Code(s): F17.200 - Nicotine dependence, unspecified, uncomplicated Status: Acute Subjective Date/time seen: 11/16/22 10:52 Interval history: Patient feels better, ambulating in room without oxygen. Still coughing and short of breath but less than before. Exam Narrative: GENERAL APPEARANCE: Well developed, well nourished, alert and cooperative, and appears to be in in mild respiratory distress while on supplemental oxygen, sitting up in bed SKIN: Inspection of the skin reveals no rashes, ulcerations or petechiae. HEENT: Sclerae anicteric and conjunctivae pink and moist. Extraocular movements were intact and pupils were equal, round, and reactive to light. The oral mucosa, hard and soft palate, tongue and posterior pharynx were normal. NECK: Supple. There was no thyroid enlargement, and no tenderness, or masses were felt. No JVD LUNGS: Better air entry to lugs, lungs less hyperinflated than before. Still coughing with deep inspirations CARDIAC: There was a regular rate and rhythm without any murmurs, gallops, rubs. ABDOMEN: Soft and nontender with normal bowel sounds. There was no organomegaly. LYMPH NODES: No lymphadenopathy was appreciated in the neck EXTREMITIES: No cyanosis, clubbing or edema. NEUROLOGIC: Alert and oriented x 3. Normal affect. Objective Data Vital Signs Vital Signs: Vital Signs - 24 hr 11/15/22 13:25 11/15/22 13:44 11/15/22 12:00 Temperature 36.6 C Pulse Rate 94 91 77 Respiratory Rate 18 18 8 L Blood Pressure 129/36 L Pulse Oximetry 97 Oxygen Delivery Oxygen Flow Rate 11/15/22 16:00 11/15/22 20:15 11/15/22 20:16 Temperature 36.6 C Pulse Rate 95 89 Respiratory Rate 14 18 Blood Pressure 114/73 Pulse Oximetry 90 95 Oxygen Delivery Nasal Cannula Oxygen Flow Rate 4 11/15/22 20:24 11/15/22 20:00 11/16/22 00:00 Temperature 36.5 C 35.8 C L Pulse Rate 92 93 76 Respiratory Rate 18 16 16 Blood Pressure 138/83 125/81 Pulse Oximetry 95 94 Oxygen Delivery Oxygen Flow Rate 11/16/22 00:30 11/16/22 00:31 11/16/22 00:37 Temperature Pulse Rate 88 87 Respiratory Rate 15 15 15 Blood Pressure Pulse Oximetry 97 Oxygen Delivery BiPAP Oxygen Flow Rate 11/16/22 04:59 11/16/22 05:01 11/16/22 05:05 Temperature Pulse Rate 80 79 Respiratory Rate 11 L 11 L 11 L Blood Pressure Pulse Oximetry 98 Oxygen Delivery BiPAP Oxygen Flow Rate 11/16/22 04:00 11/16/22 07:43 11/16/22 07:43 Temperature 36.4 C L Pulse Rate 75 72 Respiratory Rate 16 20 Blood Pressure 151/85 H Pulse Oximetry 98 95 Oxygen Delivery Nasal Cannula Oxygen Flow Rat
--- NOTE | 2022-11-16 14:32 | P.PNIM_ITS ---
Progress Note: A&P Assessment and Plan (1) COPD (chronic obstructive pulmonary disease): Qualifiers: COPD type: COPD with acute exacerbation Qualified Code(s): J44.1 - Chronic obstructive pulmonary disease with (acute) exacerbation Code(s): J44.9 - Chronic obstructive pulmonary disease, unspecified Status: Acute Assessment and Plan: * Presented with complaints of dyspnea and worsening shortness of breath * Patient chronically on 4 L of O2 at home * Blood gas pH 7.27, PCO2 55.3, PO2 56.5, HCO3 24.9, Saturations 87.9 * Start patient on duonebs * Continue bipap as needed * Chest xray indicates pulmonary vascular congestion * Supplemental oxygen, wean to maintain saturations >90% * Patient started on IV Solu-Medrol and decelerated per pulmonology (2) Acute respiratory failure with hypoxia and hypercapnia: Code(s): J96.01 - Acute respiratory failure with hypoxia; J96.02 - Acute respiratory failure with hypercapnia Status: Acute Assessment and Plan: * Presented with complaints of dyspnea and worsening shortness of breath * Blood gas pH 7.27, PCO2 55.3, PO2 56.5, HCO3 24.9, Saturations 87.9 * Appears to be respiratory acidosis * Continue bipap with 40% FIO2 as needed * Neb treatments * trend respiratory status * Wean to maintain saturations >90. (3) Tobacco dependence: Code(s): F17.200 - Nicotine dependence, unspecified, uncomplicated Status: Acute Assessment and Plan: * Nicotine patch, and gum * Smoking cessation education given 8 minutes (4) CHF (congestive heart failure): Qualifiers: Heart failure chronicity: acute Heart failure type: unspecified Qualified Code(s): I50.9 - Heart failure, unspecified Code(s): I50.9 - Heart failure, unspecified Status: Acute Assessment and Plan: Not in acute exacerbation. * BNP 32 * Chest xray showed pulmonary vascular congestion * Trend urine output * Daily weights * Most likely contributing to the respiratory failure * Home furosemide dose at 20 mg daily * Strict I and Os Subjective Date/time seen: 11/16/22 14:32 Interval history: Patient's respiratory status improving although she complains of a cough still. Cough seems to be improving but still there. She does have some difficulty with deep inspiration. With deep inspiration it causes worsening cough. Her breath sounds are pretty clear although when she cough she sounds pretty congested. Per pulmonology, continue current regimen of IV steroids. She denies any chest pain, worsening shortness of breath, nausea, vomiting, dysuria, lightheadedness and dizziness. Exam Narrative: GENERAL: Comfortable, no acute distress HENMT: moist mucous membranes EYES: EOM intact b/l NECK: no lymphadenopathy RESPIRATORY: clear to auscultation CARDIO: RRR GI: soft, nontender, bowel sounds present SKIN: no rashes EXTREMITIES: no edema, redness or tenderness Objective Data Vital Signs Vital Signs: Vital Signs - 24 hr 11/15/22 16:00 11/15/22 20:15 11/15/22 20:16 Temperature 97.9 F Pulse Rate 95 89 Respiratory Rate 14 18 Blood Pressure 114/73 Pulse Oximetry 90 95 Oxygen Delivery Nasal Cannula Oxygen Flow Rate 4 11/15/22 20:24 11/15/22 20:00 09/0
--- NOTE | 2022-11-16 14:32 | PM.IMPN ---
Progress Note: A&P Assessment and Plan (1) COPD (chronic obstructive pulmonary disease): Qualifiers: COPD type: COPD with acute exacerbation Qualified Code(s): J44.1 - Chronic obstructive pulmonary disease with (acute) exacerbation Code(s): J44.9 - Chronic obstructive pulmonary disease, unspecified Status: Acute Assessment and Plan: Presented with complaints of dyspnea and worsening shortness of breath Patient chronically on 4 L of O2 at home Blood gas pH 7.27, PCO2 55.3, PO2 56.5, HCO3 24.9, Saturations 87.9 Start patient on duonebs Continue bipap as needed Chest xray indicates pulmonary vascular congestion Supplemental oxygen, wean to maintain saturations >90% Patient started on IV Solu-Medrol and decelerated per pulmonology (2) Acute respiratory failure with hypoxia and hypercapnia: Code(s): J96.01 - Acute respiratory failure with hypoxia; J96.02 - Acute respiratory failure with hypercapnia Status: Acute Assessment and Plan: Presented with complaints of dyspnea and worsening shortness of breath Blood gas pH 7.27, PCO2 55.3, PO2 56.5, HCO3 24.9, Saturations 87.9 Appears to be respiratory acidosis Continue bipap with 40% FIO2 as needed Neb treatments trend respiratory status Wean to maintain saturations >90. (3) Tobacco dependence: Code(s): F17.200 - Nicotine dependence, unspecified, uncomplicated Status: Acute Assessment and Plan: Nicotine patch, and gum Smoking cessation education given 8 minutes (4) CHF (congestive heart failure): Qualifiers: Heart failure chronicity: acute Heart failure type: unspecified Qualified Code(s): I50.9 - Heart failure, unspecified Code(s): I50.9 - Heart failure, unspecified Status: Acute Assessment and Plan: Not in acute exacerbation. BNP 32 Chest xray showed pulmonary vascular congestion Trend urine output Daily weights Most likely contributing to the respiratory failure Home furosemide dose at 20 mg daily Strict I and Os Subjective Date/time seen: 11/16/22 14:32 Interval history: Patient's respiratory status improving although she complains of a cough still. Cough seems to be improving but still there. She does have some difficulty with deep inspiration. With deep inspiration it causes worsening cough. Her breath sounds are pretty clear although when she cough she sounds pretty congested. Per pulmonology, continue current regimen of IV steroids. She denies any chest pain, worsening shortness of breath, nausea, vomiting, dysuria, lightheadedness and dizziness. Exam Narrative: GENERAL: Comfortable, no acute distress HENMT: moist mucous membranes EYES: EOM intact b/l NECK: no lymphadenopathy RESPIRATORY: clear to auscultation CARDIO: RRR GI: soft, nontender, bowel sounds present SKIN: no rashes EXTREMITIES: no edema, redness or tenderness Objective Data Vital Signs Vital Signs: Vital Signs - 24 hr 11/15/22 16:00 11/15/22 20:15 11/15/22 20:16 Temperature 97.9 F Pulse Rate 95 89 Respiratory Rate 14 18 Blood Pressure 114/73 Pulse Oximetry 90 95 Oxygen Delivery Nasal Cannula Oxygen Flow Rate 4 11/15/22 20:24 11/15/22 20:00 11/16/22 00:00 Temperature 97.7 F 96.4 F L Pulse Rate 92 93 76 Respiratory Rate 18 16 16 Blood Pressure 138/83 125/81 Pulse Oximetry 95 94 Oxygen Delivery Oxygen Flow Rate 11/16/22 00:30 11/16/22 00:31 11/16/22 00:37 Temperature Pulse Rate 88 87 Respiratory Rate 15 15 15 Blood Pressure Pulse Oximetry 97 Oxygen Delivery BiPAP Oxygen Flow Rate 11/16/22 04:59 11/16/22 05:01 11/16/22 05:05 Temperature Pulse Rate 80 79 Respiratory Rate 11 L 11 L 11 L Blood Pressure Pulse Oximetry 98 Oxygen Delivery BiPAP Oxygen Flow Rate 11/16/22 04:00 11/16/22 07:43 11/16/22 07:43 Temperature 97.5 F
[2022-11-16] MEDS: AZITHROMYCIN 250 MG TABLET 500 MG PO (21:12)
[2022-11-16] MEDS: guaiFENesin/DEXTROMETHORPHAN 10 ML UDC PO (21:12)
[2022-11-17] VITALS (20 sets, daily range): BP systolic 137–155; BP diastolic 74–86; PULSE 51–95; RESP 15–26; TEMP 36.1–37.2; O2SAT 91–100
[2022-11-17] MEDS: IPRATROPIUM BR 0.02% INH SOLN 0.5 MG/2.5 ML VIAL INHALATION ×7 (00:42→23:40)
[2022-11-17] MEDS: ALBUTEROL SULFATE NEB 2.5 MG/3 ML INH INHALATION ×7 (00:42→23:40)
[2022-11-17 06:53] LABS: Basophils Percent Auto 0.3 % (0.2-1.2); Hematocrit 46.1 % (37.0-47.0); Hemoglobin 14.8 g/dL (12.0-15.0); Immature Granulocyte Absolute 0.23 K/mm3 (0.00-0.031); Immature Granulocyte Percent A 1.6 % (0-0.5); Lymphocytes Absolute Auto 1.66 K/mm3 (0.9-3.2); Lymphocytes Percent Auto 11.2 % (18.3-44.2); Mean Corpuscular HGB Conc 32.1 g/dl (32-36); Mean Corpuscular Hemoglobin 31.7 pg (26-34); Mean Corpuscular Volume 98.7 fl (80-100); Mean Platelet Volume 10.2 fl (7.4-10.4); Monocytes Absolute Auto 1.1 K/mm3 (0.1-0.6); Monocytes Percent Auto 7.1 % (2.6-8.5); Neutrophils Absolute Auto 11.8 K/mm3 (1.3-6.7); Neutrophils Percent Auto 79.8 % (45.5-73.1); Platelet Count Result 310 k/mm3 (150-375); Red Blood Count 4.67 M/mm3 (4.2-5.4); Red Cell Distribution Width 13.2 % (11.5-14.5); White Blood Count 14.8 K/mm3 (4.5-10.0)
[2022-11-17 07:03] LABS: Alanine Aminotransferase 56 U/L (6-35); Albumin Level 3.2 g/dL (3.5-5.1); Alkaline Phosphatase 44 U/L (38-126); Anion Gap 6 mmol/L (8-16); Aspartate Amino Transferase 34 U/L (14-36); Bilirubin,Total 0.4 mg/dL (0.2-1.3); Blood Urea Nitrogen 24 mg/dL (7-17); Calcium 8.5 mg/dL (8.4-10.2); Carbon Dioxide 31 mmol/L (22-30); Chloride 101 mmol/L (98-107); Estimated CRCL calculation 75 ml/min; Estimated Glomerular Filt Rate > 60; Glucose 201 mg/dL (65-110); Potassium 4.3 mmol/L (3.4-5.0); Sodium 138 mmol/L (137-145)
[2022-11-17] MEDS: NICOTINE (*PBKC) 21 MG PATCH 1 PATCH TRANSDERM (09:43)
[2022-11-17] MEDS: FUROSEMIDE 20 MG TABLET PO (09:44)
[2022-11-17] MEDS: methylPREDNISolone SOD SUCC 125 MG VIAL 60 MG IV PUSH (09:44)
[2022-11-17] MEDS: ENOXAPARIN 40 MG/0.4 ML SYRINGE SUB-Q (09:44)
--- NOTE | 2022-11-17 14:59 | P.PNIM_ITS ---
Progress Note: A&P Assessment and Plan (1) COPD (chronic obstructive pulmonary disease): Qualifiers: COPD type: COPD with acute exacerbation Qualified Code(s): J44.1 - Chronic obstructive pulmonary disease with (acute) exacerbation Code(s): J44.9 - Chronic obstructive pulmonary disease, unspecified Status: Acute Assessment and Plan: * Presented with complaints of dyspnea and worsening shortness of breath * Patient chronically on 4 L of O2 at home (PRN according to the pt) * Blood gas pH 7.27, PCO2 55.3, PO2 56.5, HCO3 24.9, Saturations 87.9 * Start patient on duonebs * Continue bipap as needed * Chest xray indicates pulmonary vascular congestion * Supplemental oxygen, wean to maintain saturations >90% * Patient started on IV Solu-Medrol and decelerated per pulmonology (2) Acute respiratory failure with hypoxia and hypercapnia: Code(s): J96.01 - Acute respiratory failure with hypoxia; J96.02 - Acute respiratory failure with hypercapnia Status: Acute Assessment and Plan: * Presented with complaints of dyspnea and worsening shortness of breath * Blood gas pH 7.27, PCO2 55.3, PO2 56.5, HCO3 24.9, Saturations 87.9 * Appears to be respiratory acidosis * Continue bipap with 40% FIO2 as needed * Neb treatments * trend respiratory status * Wean to maintain saturations >90. (3) Tobacco dependence: Code(s): F17.200 - Nicotine dependence, unspecified, uncomplicated Status: Acute Assessment and Plan: * Nicotine patch, and gum * Smoking cessation education given 8 minutes (4) CHF (congestive heart failure): Qualifiers: Heart failure chronicity: acute Heart failure type: unspecified Qualified Code(s): I50.9 - Heart failure, unspecified Code(s): I50.9 - Heart failure, unspecified Status: Acute Assessment and Plan: Not in acute exacerbation. * BNP 32 * Chest xray showed pulmonary vascular congestion * Trend urine output * Daily weights * Most likely contributing to the respiratory failure * Home furosemide dose at 20 mg daily * Strict I and Os Subjective Date/time seen: 11/17/22 14:59 Interval history: Patient not wearing her oxygen today. Patient states that she only wears her oxygen intermittently as she needs and she refuses to walk around with oxygen tank 24/7. Her shortness of breath has improved. She still is coughing intermittently although she states that she does cough at baseline. Decelerated her IV steroids again today. If she continues to do well likely discharge tomorrow. She states that she feels like her chest is more clear and she coughed up a lot of gunk yesterday. She denies any chest pain, nausea, vomiting, lightheadedness and dizziness. No lower extremity edema. Exam Narrative: GENERAL: Comfortable, no acute distress HENMT: moist mucous membranes EYES: EOM intact b/l NECK: no lymphadenopathy RESPIRATORY: clear to auscultation CARDIO: RRR GI: soft, nontender, bowel sounds present SKIN: no rashes EXTREMITIES: no edema, redness or tenderness Objective Data Vital Signs Vital Signs: Vital Signs - 24 hr 11/16/22 15:24 11/16/22 15:36 11/16/22 16:00 Temperature 97.2 F L Pulse Rate 88 92 88 Respiratory Rate 20 20 16 Blood Pressure 125/87 Pulse Oximetry 94
--- NOTE | 2022-11-17 14:59 | PM.IMPN ---
Progress Note: A&P Assessment and Plan (1) COPD (chronic obstructive pulmonary disease): Qualifiers: COPD type: COPD with acute exacerbation Qualified Code(s): J44.1 - Chronic obstructive pulmonary disease with (acute) exacerbation Code(s): J44.9 - Chronic obstructive pulmonary disease, unspecified Status: Acute Assessment and Plan: Presented with complaints of dyspnea and worsening shortness of breath Patient chronically on 4 L of O2 at home (PRN according to the pt) Blood gas pH 7.27, PCO2 55.3, PO2 56.5, HCO3 24.9, Saturations 87.9 Start patient on duonebs Continue bipap as needed Chest xray indicates pulmonary vascular congestion Supplemental oxygen, wean to maintain saturations >90% Patient started on IV Solu-Medrol and decelerated per pulmonology (2) Acute respiratory failure with hypoxia and hypercapnia: Code(s): J96.01 - Acute respiratory failure with hypoxia; J96.02 - Acute respiratory failure with hypercapnia Status: Acute Assessment and Plan: Presented with complaints of dyspnea and worsening shortness of breath Blood gas pH 7.27, PCO2 55.3, PO2 56.5, HCO3 24.9, Saturations 87.9 Appears to be respiratory acidosis Continue bipap with 40% FIO2 as needed Neb treatments trend respiratory status Wean to maintain saturations >90. (3) Tobacco dependence: Code(s): F17.200 - Nicotine dependence, unspecified, uncomplicated Status: Acute Assessment and Plan: Nicotine patch, and gum Smoking cessation education given 8 minutes (4) CHF (congestive heart failure): Qualifiers: Heart failure chronicity: acute Heart failure type: unspecified Qualified Code(s): I50.9 - Heart failure, unspecified Code(s): I50.9 - Heart failure, unspecified Status: Acute Assessment and Plan: Not in acute exacerbation. BNP 32 Chest xray showed pulmonary vascular congestion Trend urine output Daily weights Most likely contributing to the respiratory failure Home furosemide dose at 20 mg daily Strict I and Os Subjective Date/time seen: 11/17/22 14:59 Interval history: Patient not wearing her oxygen today. Patient states that she only wears her oxygen intermittently as she needs and she refuses to walk around with oxygen tank /. Her shortness of breath has improved. She still is coughing intermittently although she states that she does cough at baseline. Decelerated her IV steroids again today. If she continues to do well likely discharge tomorrow. She states that she feels like her chest is more clear and she coughed up a lot of gunk yesterday. She denies any chest pain, nausea, vomiting, lightheadedness and dizziness. No lower extremity edema. Exam Narrative: GENERAL: Comfortable, no acute distress HENMT: moist mucous membranes EYES: EOM intact b/l NECK: no lymphadenopathy RESPIRATORY: clear to auscultation CARDIO: RRR GI: soft, nontender, bowel sounds present SKIN: no rashes EXTREMITIES: no edema, redness or tenderness Objective Data Vital Signs Vital Signs: Vital Signs - 24 hr 11/16/22 15:24 11/16/22 15:36 11/16/22 16:00 Temperature 97.2 F L Pulse Rate 88 92 88 Respiratory Rate 20 20 16 Blood Pressure 125/87 Pulse Oximetry 94 Oxygen Delivery Oxygen Flow Rate 11/16/22 17:18 11/16/22 20:50 11/16/22 21:29 Temperature 97.7 F Pulse Rate 94 95 Respiratory Rate 18 20 Blood Pressure 142/82 H Pulse Oximetry 97 92 Oxygen Delivery Nasal Cannula Oxygen Flow Rate 3 11/16/22 21:39 11/16/22 23:19 11/17/22 00:12 Temperature 97.9 F Pulse Rate 96 72 Respiratory Rate 20 25 H 18 Blood Pressure 137/81 Pulse Oximetry 98 97 Oxygen Delivery BiPAP Oxygen Flow Rate 11/17/22 00:45 11/17/22 00:45 11/17/22 00:55 Temperature Pulse Rate 95 94 Respiratory Rate 20 15 20 Blood Pressure Pulse O
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
[2022-11-17] MEDS: AZITHROMYCIN 250 MG TABLET 500 MG PO (21:38)
[2022-11-17] MEDS: methylPREDNISolone SOD SUCC 40 MG VIAL IV PUSH (21:40)
[2022-11-18] VITALS (19 sets, daily range): BP systolic 136–146; BP diastolic 69–95; PULSE 65–95; RESP 15–32; TEMP 36.4–37.2; O2SAT 90–98
[2022-11-18] MEDS: IPRATROPIUM BR 0.02% INH SOLN 0.5 MG/2.5 ML VIAL INHALATION ×4 (04:20→19:38)
[2022-11-18] MEDS: ALBUTEROL SULFATE NEB 2.5 MG/3 ML INH INHALATION ×4 (04:20→19:38)
[2022-11-18 06:54] LABS: Hematocrit 48.5 % (37.0-47.0); Hemoglobin 15.5 g/dL (12.0-15.0); Mean Corpuscular Hemoglobin 31.1 pg (26-34); Mean Corpuscular Volume 97.4 fl (80-100); Platelet Count Result 326 k/mm3 (150-375); Red Blood Count 4.98 M/mm3 (4.2-5.4); Red Cell Distribution Width 12.8 % (11.5-14.5); White Blood Count 13.3 K/mm3 (4.5-10.0)
[2022-11-18 06:55] LABS: Basophils Percent Auto 0.3 % (0.2-1.2); Immature Granulocyte Absolute 0.24 K/mm3 (0.00-0.031); Immature Granulocyte Percent A 1.8 % (0-0.5); Lymphocytes Absolute Auto 1.12 K/mm3 (0.9-3.2); Lymphocytes Percent Auto 8.4 % (18.3-44.2); Mean Platelet Volume 10.1 fl (7.4-10.4); Monocytes Absolute Auto 0.5 K/mm3 (0.1-0.6); Monocytes Percent Auto 3.5 % (2.6-8.5); Neutrophils Absolute Auto 11.4 K/mm3 (1.3-6.7)
[2022-11-18 07:03] LABS: Alanine Aminotransferase 55 U/L (6-35); Albumin Level 3.7 g/dL (3.5-5.1); Alkaline Phosphatase 48 U/L (38-126); Anion Gap 7 mmol/L (8-16); Aspartate Amino Transferase 32 U/L (14-36); Bilirubin,Total 0.5 mg/dL (0.2-1.3); Blood Urea Nitrogen 22 mg/dL (7-17); Calcium 8.7 mg/dL (8.4-10.2); Carbon Dioxide 28 mmol/L (22-30); Chloride 98 mmol/L (98-107); Estimated CRCL calculation 75 ml/min; Estimated Glomerular Filt Rate > 60; Glucose 241 mg/dL (65-110); Potassium 4.7 mmol/L (3.4-5.0); Sodium 133 mmol/L (137-145)
[2022-11-18] MEDS: methylPREDNISolone SOD SUCC 40 MG VIAL IV PUSH (09:52)
[2022-11-18] MEDS: NICOTINE (*PBKC) 21 MG PATCH 1 PATCH TRANSDERM (09:53)
[2022-11-18] MEDS: ENOXAPARIN 40 MG/0.4 ML SYRINGE SUB-Q (09:53)
[2022-11-18] MEDS: INSULIN ASPART (*BKC) 100 UNITS/ML SUB-Q ×4 (09:54→22:00)
[2022-11-18] MEDS: FUROSEMIDE 20 MG TABLET PO (10:03)
[2022-11-18 10:04] LABS: Glucose Point of Care 303 mg/dl (65-105)
[2022-11-18 11:51] LABS: Glucose Point of Care 210 mg/dl (65-105)
--- NOTE | 2022-11-18 14:07 | PCRCNOTE ---
Window of time for administration has passed. See next scheduled administration.
--- NOTE | 2022-11-18 14:08 | P.PNIM_ITS ---
Progress Note: A&P Assessment and Plan (1) COPD (chronic obstructive pulmonary disease): Qualifiers: COPD type: COPD with acute exacerbation Qualified Code(s): J44.1 - Chronic obstructive pulmonary disease with (acute) exacerbation Code(s): J44.9 - Chronic obstructive pulmonary disease, unspecified Status: Acute Assessment and Plan: * Presented with complaints of dyspnea and worsening shortness of breath * Patient chronically on 4 L of O2 at home (PRN according to the pt) * Blood gas pH 7.27, PCO2 55.3, PO2 56.5, HCO3 24.9, Saturations 87.9 * Start patient on duonebs * Continue bipap as needed * Chest xray indicates pulmonary vascular congestion * Supplemental oxygen, wean to maintain saturations >90% * Patient started on IV Solu-Medrol and decelerate as appropriate (2) Acute respiratory failure with hypoxia and hypercapnia: Code(s): J96.01 - Acute respiratory failure with hypoxia; J96.02 - Acute respiratory failure with hypercapnia Status: Acute Assessment and Plan: * Presented with complaints of dyspnea and worsening shortness of breath * Blood gas pH 7.27, PCO2 55.3, PO2 56.5, HCO3 24.9, Saturations 87.9 * Appears to be respiratory acidosis * Continue bipap with 40% FIO2 as needed * Neb treatments * trend respiratory status * Wean to maintain saturations >90. (3) Tobacco dependence: Code(s): F17.200 - Nicotine dependence, unspecified, uncomplicated Status: Acute Assessment and Plan: * Nicotine patch, and gum * Smoking cessation education given 8 minutes (4) CHF (congestive heart failure): Qualifiers: Heart failure chronicity: acute Heart failure type: unspecified Qualified Code(s): I50.9 - Heart failure, unspecified Code(s): I50.9 - Heart failure, unspecified Status: Acute Assessment and Plan: Not in acute exacerbation. * BNP 32 * Chest xray showed pulmonary vascular congestion * Trend urine output * Daily weights * Most likely contributing to the respiratory failure * Home furosemide dose at 20 mg daily * Strict I and Os Subjective Date/time seen: 11/18/22 14:08 Interval history: Patient doing well today with no new complaints at this time. She still has mild cough but does not complain of any shortness of breath. She is now on room air. Awaiting okay from pulmonology to discharge patient. Exam Narrative: GENERAL: Comfortable, no acute distress HENMT: moist mucous membranes EYES: EOM intact b/l NECK: no lymphadenopathy RESPIRATORY: clear to auscultation CARDIO: RRR GI: soft, nontender, bowel sounds present SKIN: no rashes EXTREMITIES: no edema, redness or tenderness Objective Data Vital Signs Vital Signs: Vital Signs - 24 hr 11/17/22 14:53 11/17/22 16:00 11/17/22 21:40 Temperature 99.0 F Pulse Rate 72 89 Respiratory Rate 20 18 Blood Pressure 147/74 H Pulse Oximetry 95 94 Oxygen Delivery Room Air Fraction of Inspired Oxygen 11/17/22 21:40 11/17/22 20:00 11/17/22 20:40 Temperature 98.5 F Pulse Rate 84 92 84 Respiratory Rate 16 20 16 Blood Pressure 150/86 H Pulse Oximetry 92 94 Oxygen Delivery Room Air Fraction of Inspired
--- NOTE | 2022-11-18 14:08 | PM.IMPN ---
Progress Note: A&P Assessment and Plan (1) COPD (chronic obstructive pulmonary disease): Qualifiers: COPD type: COPD with acute exacerbation Qualified Code(s): J44.1 - Chronic obstructive pulmonary disease with (acute) exacerbation Code(s): J44.9 - Chronic obstructive pulmonary disease, unspecified Status: Acute Assessment and Plan: Presented with complaints of dyspnea and worsening shortness of breath Patient chronically on 4 L of O2 at home (PRN according to the pt) Blood gas pH 7.27, PCO2 55.3, PO2 56.5, HCO3 24.9, Saturations 87.9 Start patient on duonebs Continue bipap as needed Chest xray indicates pulmonary vascular congestion Supplemental oxygen, wean to maintain saturations >90% Patient started on IV Solu-Medrol and decelerate as appropriate (2) Acute respiratory failure with hypoxia and hypercapnia: Code(s): J96.01 - Acute respiratory failure with hypoxia; J96.02 - Acute respiratory failure with hypercapnia Status: Acute Assessment and Plan: Presented with complaints of dyspnea and worsening shortness of breath Blood gas pH 7.27, PCO2 55.3, PO2 56.5, HCO3 24.9, Saturations 87.9 Appears to be respiratory acidosis Continue bipap with 40% FIO2 as needed Neb treatments trend respiratory status Wean to maintain saturations >90. (3) Tobacco dependence: Code(s): F17.200 - Nicotine dependence, unspecified, uncomplicated Status: Acute Assessment and Plan: Nicotine patch, and gum Smoking cessation education given 8 minutes (4) CHF (congestive heart failure): Qualifiers: Heart failure chronicity: acute Heart failure type: unspecified Qualified Code(s): I50.9 - Heart failure, unspecified Code(s): I50.9 - Heart failure, unspecified Status: Acute Assessment and Plan: Not in acute exacerbation. BNP 32 Chest xray showed pulmonary vascular congestion Trend urine output Daily weights Most likely contributing to the respiratory failure Home furosemide dose at 20 mg daily Strict I and Os Subjective Date/time seen: 11/18/22 14:08 Interval history: Patient doing well today with no new complaints at this time. She still has mild cough but does not complain of any shortness of breath. She is now on room air. Awaiting okay from pulmonology to discharge patient. Exam Narrative: GENERAL: Comfortable, no acute distress HENMT: moist mucous membranes EYES: EOM intact b/l NECK: no lymphadenopathy RESPIRATORY: clear to auscultation CARDIO: RRR GI: soft, nontender, bowel sounds present SKIN: no rashes EXTREMITIES: no edema, redness or tenderness Objective Data Vital Signs Vital Signs: Vital Signs - 24 hr 11/17/22 14:53 11/17/22 16:00 11/17/22 21:40 Temperature 99.0 F Pulse Rate 72 89 Respiratory Rate 20 18 Blood Pressure 147/74 H Pulse Oximetry 95 94 Oxygen Delivery Room Air Fraction of Inspired Oxygen 11/17/22 21:40 11/17/22 20:00 11/17/22 20:40 Temperature 98.5 F Pulse Rate 84 92 84 Respiratory Rate 16 20 16 Blood Pressure 150/86 H Pulse Oximetry 92 94 Oxygen Delivery Room Air Fraction of Inspired Oxygen 36 11/17/22 23:41 11/17/22 21:50 11/17/22 23:43 Temperature Pulse Rate 82 80 Respiratory Rate 26 H 16 25 H Blood Pressure Pulse Oximetry 98 Oxygen Delivery BiPAP Fraction of Inspired Oxygen 11/18/22 00:00 11/18/22 04:21 11/17/22 23:53 Temperature 97.6 F Pulse Rate 72 84 Respiratory Rate 20 15 23 H Blood Pressure 146/76 H Pulse Oximetry 97 97 Oxygen Delivery BiPAP Fraction of Inspired Oxygen 11/18/22 04:20 11/18/22 04:30 11/18/22 04:00 Temperature 97.6 F Pulse Rate 79 74 65 Respiratory Rate 15 17 20 Blood Pressure 140/69 Pulse Oximetry 98 Oxygen Delivery Fraction of Inspired Oxygen 11/18/22 07:44 11/18/22 07:47 11/18/22 07:48
[2022-11-18 16:35] LABS: Glucose Point of Care 202 mg/dl (65-105)
[2022-11-18] MEDS: guaiFENesin/DEXTROMETHORPHAN 10 ML UDC PO (18:08)
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
[2022-11-18 21:58] LABS: Glucose Point of Care 353 mg/dl (65-105)
[2022-11-19] VITALS (17 sets, daily range): BP systolic 131–152; BP diastolic 35–82; PULSE 59–95; RESP 15–24; TEMP 36–36.2; O2SAT 86–98
[2022-11-19] MEDS: IPRATROPIUM BR 0.02% INH SOLN 0.5 MG/2.5 ML VIAL INHALATION ×4 (04:34→12:29)
[2022-11-19] MEDS: ALBUTEROL SULFATE NEB 2.5 MG/3 ML INH INHALATION ×4 (04:35→12:29)
[2022-11-19 07:16] LABS: Alanine Aminotransferase 50 U/L (6-35); Albumin Level 3.3 g/dL (3.5-5.1); Alkaline Phosphatase 46 U/L (38-126); Anion Gap 6 mmol/L (8-16); Aspartate Amino Transferase 26 U/L (14-36); Bilirubin,Total 0.6 mg/dL (0.2-1.3); Blood Urea Nitrogen 23 mg/dL (7-17); Calcium 8.5 mg/dL (8.4-10.2); Carbon Dioxide 30 mmol/L (22-30); Chloride 98 mmol/L (98-107); Estimated CRCL calculation 75 ml/min; Estimated Glomerular Filt Rate > 60; Glucose 122 mg/dL (65-110); Potassium 3.8 mmol/L (3.4-5.0); Sodium 134 mmol/L (137-145)
[2022-11-19 07:20] LABS: Basophils Absolute Auto 0.1 K/mm3 (0.0-0.1); Basophils Percent Auto 0.5 % (0.2-1.2); Eosinophils Absolute Auto 0.1 K/mm3 (0-0.3); Eosinophils Percent Auto 0.7 % (0-4.4); Hematocrit 48.4 % (37.0-47.0); Hemoglobin 15.6 g/dL (12.0-15.0); Immature Granulocyte Absolute 0.29 K/mm3 (0.00-0.031); Immature Granulocyte Percent A 1.9 % (0-0.5); Lymphocytes Absolute Auto 4.08 K/mm3 (0.9-3.2); Lymphocytes Percent Auto 27.4 % (18.3-44.2); Mean Corpuscular HGB Conc 32.2 g/dl (32-36); Mean Corpuscular Hemoglobin 31.3 pg (26-34); Monocytes Absolute Auto 1.1 K/mm3 (0.1-0.6); Monocytes Percent Auto 7.2 % (2.6-8.5); Neutrophils Absolute Auto 9.3 K/mm3 (1.3-6.7); Neutrophils Percent Auto 62.3 % (45.5-73.1); Platelet Count Result 321 k/mm3 (150-375); Red Blood Count 4.99 M/mm3 (4.2-5.4); White Blood Count 14.9 K/mm3 (4.5-10.0)
[2022-11-19 07:43] LABS: Glucose Point of Care 120 mg/dl (65-105)
[2022-11-19] MEDS: ENOXAPARIN 40 MG/0.4 ML SYRINGE SUB-Q (09:29)
[2022-11-19] MEDS: NICOTINE (*PBKC) 21 MG PATCH 1 PATCH TRANSDERM (09:29)
[2022-11-19] MEDS: methylPREDNISolone SOD SUCC 40 MG VIAL IV PUSH (09:29)
[2022-11-19] MEDS: metFORMIN HCL XR 500 MG TAB.SR.24H PO (09:30)
[2022-11-19] MEDS: FUROSEMIDE 20 MG TABLET PO (09:30)
--- NOTE | 2022-11-19 09:51 | PM.PNPUL ---
Progress Note: A&P Assessment and Plan (1) COPD (chronic obstructive pulmonary disease): Qualifiers: COPD type: COPD with acute exacerbation Qualified Code(s): J44.1 - Chronic obstructive pulmonary disease with (acute) exacerbation Code(s): J44.9 - Chronic obstructive pulmonary disease, unspecified Status: Acute Assessment and Plan: This 62-year-old female presented with hypercapnic respiratory failure related to COPD exacerbation. On admission the patient had evidence of lung hyperinflation that improved following treatment with nebulized short-acting bronchodilators BiPAP support. 11/18 Continues to have cough but less than before. Not using BiPAP at night. Overall respiratory status improving slowly. She continues to have a cough with deep inspirations. On physical exam she has less lung hyperinflation less wheezing but chest is still congested. 11/19 patient tells me she is breathing back to normal. Her cough is back to her normal. She has no phlegm and no hemoptysis. Currently she is on room air with saturations 93%. The patient is ready to be discharged from a pulmonary perspective on these pulmonary medications: Prednisone 40 mg p.o. q.day x3 days. Trelegy 100-60 2.5-25 at 1 puff q.day. Albuterol inhaler 2 puffs q.4 hours p.r.n. shortness of breath or wheezing Oxygen per formal home O2 assessment which I have ordered. When she naps or sleeps home noninvasive ventilator with the trelegy and AVAPS-AE mode with 4 L bleed in. [employer] is her [employer]. Follow-up in the [place] [facility] in 3-4 weeks. She says it very difficult for her to come to the [facility] site. Patient will need outpatient PFTs and a download to assess her compliance. Patient should have an overnight oximetry on 4 L bleed in as an outpatient. Discussed with Meeta Aden (2) Acute respiratory failure with hypoxia and hypercapnia: Code(s): J96.01 - Acute respiratory failure with hypoxia; J96.02 - Acute respiratory failure with hypercapnia Status: Acute Assessment and Plan: 11/18 Now on room air; Uses O2 at home with exertion, takes tank with her when she leaves her home to go shopping, does not always use it in public. When she is in a store, she may go without it. Stops to rest. 11/19 Home noninvasive ventilation was initiated at last hospitalization on 09/14/2022. The patient tells me that she has been wearing her machine at least every other night all night. I have been ordered a a home O2 assessment to determine her oxygen needs at rest and with ambulation. (3) Tobacco dependence: Code(s): F17.200 - Nicotine dependence, unspecified, uncomplicated Status: Acute Assessment and Plan: Has not smoked since before this admission. Stopped last month. 11/19 remains smoke-free since hospitalization on 09/14/2022. Subjective Date/time seen: 11/19/22 09:51 Interval history: 62-year-old female presented with 1 day history of progressively increasing shortness of breath left chest tightness.? The patient was in her usual state of health until approximately 2 months ago when she presented with shortness of breath and pedal edema.? Patient was found to have a acute respiratory acidosis and received treatment for COPD.? Patient was discharged home on noninvasive ventilatory support via trilogy ventilator and supplemental oxygen at 4 liters/minute and triple inhaler.? Patient started to have a shortness of breath yesterday.? Specifically she started to have chest tightness and severe shortness of breath.? She was again found to have a hypercapnic respiratory failure and received treatment with antibiotics diuretics and BiPAP support.? Currently the patient is doing better.? She still on supplemental oxygen, complaining of shortness of breath but less than before coughing spells with sputum production.? Upon questioning the
--- NOTE | 2022-11-19 11:20 | PM.DS ---
DS: Admitting Diagnosis Discharge Date 11/19/22 Admitting Diagnosis COPD exacerbation DS: Discharge Diagnosis Discharge Diagnosis (1) COPD (chronic obstructive pulmonary disease): Qualifiers: COPD type: COPD with acute exacerbation Qualified Code(s): J44.1 - Chronic obstructive pulmonary disease with (acute) exacerbation Code(s): J44.9 - Chronic obstructive pulmonary disease, unspecified Status: Acute (2) Acute respiratory failure with hypoxia and hypercapnia: Code(s): J96.01 - Acute respiratory failure with hypoxia; J96.02 - Acute respiratory failure with hypercapnia Status: Acute (3) Tobacco dependence: Code(s): F17.200 - Nicotine dependence, unspecified, uncomplicated Status: Acute (4) CHF (congestive heart failure): Qualifiers: Heart failure chronicity: acute Heart failure type: unspecified Qualified Code(s): I50.9 - Heart failure, unspecified Code(s): I50.9 - Heart failure, unspecified Status: Acute DS: Summary Hospital Course Hospital Course: This is a 62-year-old female past medical history of CHF, COPD, chronic respiratory failure on home oxygen between 3 and 4 L and presented to the ED on 11/13/2022 due to worsening shortness of breath. Chest x-ray revealed pulmonary vascular congestion related to pulmonary edema. White blood cell count of 15.7. Blood gas revealing pH of 7.27, pCO2 55.3, PO2 56.5, HC03 24.9 with saturation of 87.? BiPAP was initiated for the patient and she was able to come off BiPAP shortly after this and just use as needed. She continued on 4 L of oxygen. Pulmonology consulted. Patient was started on IV steroids. IV steroids were deescalated as appropriate. Patient started to feel much better after several days of IV steroid therapy. Also had a cough with her shortness of breath which improved with Robitussin. She was also started on azithromycin for total of 5 days. Patient's breath sounds and symptoms improved. On 11/19/2022 she was released by pulmonology to follow-up with them in their office. Recommended the patient continue 3 days as an outpatient of p.o. steroids. Labs and vital signs are stable patient is medically cleared for discharge at this time. Time Spent with Patient Time attestation: Total time spent providing and/or coordinating discharge services: Exam Narrative: GENERAL: Comfortable, no acute distress HENMT: moist mucous membranes EYES: EOM intact b/l NECK: no lymphadenopathy RESPIRATORY: clear to auscultation CARDIO: RRR GI: soft, nontender, bowel sounds present SKIN: no rashes EXTREMITIES: no edema, redness or tenderness DS: Data Data Completed and Pending Labs on day of discharge: Labs from last 24 hours 11/19/22 11/19/22 11/18/22 07:38 06:46 21:23 WBC 14.9 H RBC 4.99 Hgb 15.6 H Hct 48.4 H MCV 97.0 MCH 31.3 MCHC 32.2 RDW 13.0 Plt Count 321 MPV 10.0 Immature Gran % (Auto) 1.9 H Neut % (Auto) 62.3 Lymph % (Auto) 27.4 Coffee % (Auto) 7.2 Eos % (Auto) 0.7 Baso % (Auto) 0.5 Lymph # (Auto) 4.08 H Coffee # (Auto) 1.1 H Eos # (Auto) 0.1 Baso # (Auto) 0.1 Abs Immat Gran (auto) 0.29 H Absolute Neuts (auto) 9.3 H Absolute Nucleated RBC 0.0 Nucleated RBC % 0.0 Sodium 134 L Potassium 3.8 Chloride 98 Carbon Dioxide 30 Anion Gap 6 L BUN 23 H Creatinine 0.60 L Estim Creat Clear Calc 75 Estimated GFR > 60 Glucose 122 H POC Capillary Glucose 120 H 353 H Calcium 8.5 Total Bilirubin 0.6 AST 26 ALT 50 H Alkaline Phosphatase 46 Total Protein 6.0 L Albumin 3.3 L 11/18/22 11/18/22 16:28 11:42 WBC RBC Hgb Hct MCV MCH MCHC RDW Plt Count MPV Immature Gran % (Auto) Neut % (Auto) Lymph % (Auto) Coffee % (Auto) Eos % (Auto) Baso % (Auto) Lymph # (Auto) Coffee # (Auto) Eos # (Auto) Baso # (Auto) Abs Immat G
[2022-11-19 12:01] LABS: Glucose Point of Care 189 mg/dl (65-105)
--- NOTE | 2022-11-19 12:42 | HOMEO2EVAL ---
Evaluation was performed at [facility] Home Oxygen Evaluation RC: Home Oxygen (O2) Evaluation Start: 11/19/22 09:05 Freq: ONCE Status: Active Protocol: RPE Activity Type Activity Date Activity User E-sign Co-sign Detail Recorded Client Recorded Date Recorded By Document 11/19/22 11:50 JC [email or web address] 11/19/22 12:18 JCC Document 11/19/22 11:52 [email or web address] [email or web address] 11/19/22 12:23 JCC Document 11/19/22 11:53 [email or web address] [email or web address] 11/19/22 12:23 JC Document 11/19/22 11:54 [email or web address] [email or web address] 11/19/22 12:23 JC Document 11/19/22 12:00 [employer] [email or web address] 11/19/22 12:23 JCC 11/19/22 11/19/22 11/19/22 11:50 11:52 11:53 Home O2 Evaluation [Oxygen] -Test Phase Resting Exercise Exercise -Oxygen Delivery Room Air Room Air Nasal Cannula -Oxygen Flow Rate (L/min) 2 [Pulse Oximetry] -Pulse Oximetry (90-100 %) 91 86 L 86 L [Pulse Rate] -Pulse Rate (60-100 beats/min) 88 92 86 [Evaluation] -Activity Tolerance Fair Fair Fair -Rating of Perceived Dyspnea (PD) +2 Mild, Some +3 Moderate +3 Moderate Difficulty, Difficulty, But Difficulty, But Noticeable to Can Continue Can Continue the Observer -Rate of Perceived Exertion (PE) 9 Very light 13 Somewhat 13 Somewhat Query Text:Click the Protocol Button Hard Hard to View the RPE Scale [Exercise] -Ambulation Distance (feet) 40 40 -Ambulation Distance (meters) 12.19 12.19 [Comments] -Home Oxygen Evaluation Comments pt sitting at 2l/m pt remains 2l/m pt remains rest at 87% at 87% increased to 3l increased to 3l /m /m [Charges] -Treatment Charges O2 Evaluation - O2 Evaluation - Inpatient Inpatient 11/19/22 11/19/22 11:54 12:00 Home O2 Evaluation [Oxygen] -Test Phase Exercise Resting -Oxygen Delivery Nasal Cannula Room Air -Oxygen Flow Rate (L/min) 3 [Pulse Oximetry] -Pulse Oximetry (90-100 %) 91 92 [Pulse Rate] -Pulse Rate (60-100 beats/min) 91 90 [Evaluation] -Activity Tolerance Fair Fair -Rating of Perceived Dyspnea (PD) +3 Moderate +2 Mild, Some Difficulty, But Difficulty, Can Continue Noticeable to the Observer -Rate of Perceived Exertion (PE) 13 Somewhat 9 Very light Query Text:Click the Protocol Button Hard to View the RPE Scale [Exercise] -Ambulation Distance (feet) 40 40 -Ambulation Distance (meters) 12.19 12.19 [Comments] -Home Oxygen Evaluation Comments 2l/m pt remains 3l/m with at 87% exertion able increased to 3l to keith. room /m air at rest, unable to determine needs at noc. [Charges] -Treatment Charges O2 Evaluation - Inpatient
--- NOTE | 2022-11-19 12:42 | PCRCNOTE ---
Home oxygen evaluation complete. Pt requires 3l/m with exertion. Unable to determine needs at [facility]. 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 Pt. would also benefit from PFT testing to evaluate needs and hopefully qualify for Phase II Pulmonary Rehab as she could benefit from this as well.
--- NOTE | 2022-11-20 11:41 | HOMEO2EVAL ---
Evaluation was performed at [facility] Home Oxygen Evaluation RC: Home Oxygen (O2) Evaluation Start: 11/19/22 09:05 Freq: ONCE Status: Discharge Protocol: RPE Activity Type Activity Date Activity User E-sign Co-sign Detail Recorded Client Recorded Date Recorded By Document 11/19/22 11:50 [email or web address] [email or web address] 11/19/22 12:18 JCC Document 11/19/22 11:52 [email or web address] [email or web address] 11/19/22 12:23 JCC Document 11/19/22 11:53 JCC [email or web address] 11/19/22 12:23 JC Document 11/19/22 11:54 [email or web address] [email or web address] 11/19/22 12:23 JC Document 11/19/22 12:00 JC [email or web address] 11/19/22 12:23 JCC 11/19/22 11/19/22 11/19/22 11:50 11:52 11:53 Home O2 Evaluation [Oxygen] -Test Phase Resting Exercise Exercise -Oxygen Delivery Room Air Room Air Nasal Cannula -Oxygen Flow Rate (L/min) 2 [Pulse Oximetry] -Pulse Oximetry (90-100 %) 91 86 L 86 L [Pulse Rate] -Pulse Rate (60-100 beats/min) 88 92 86 [Evaluation] -Activity Tolerance Fair Fair Fair -Rating of Perceived Dyspnea (PD) +2 Mild, Some +3 Moderate +3 Moderate Difficulty, Difficulty, But Difficulty, But Noticeable to Can Continue Can Continue the Observer -Rate of Perceived Exertion (PE) 9 Very light 13 Somewhat 13 Somewhat Query Text:Click the Protocol Button Hard Hard to View the RPE Scale [Exercise] -Ambulation Distance (feet) 40 40 -Ambulation Distance (meters) 12.19 12.19 [Comments] -Home Oxygen Evaluation Comments pt sitting at 2l/m pt remains 2l/m pt remains rest at 87% at 87% increased to 3l increased to 3l /m /m [Charges] -Treatment Charges O2 Evaluation - O2 Evaluation - Inpatient Inpatient 11/19/22 11/19/22 11:54 12:00 Home O2 Evaluation [Oxygen] -Test Phase Exercise Resting -Oxygen Delivery Nasal Cannula Room Air -Oxygen Flow Rate (L/min) 3 [Pulse Oximetry] -Pulse Oximetry (90-100 %) 91 92 [Pulse Rate] -Pulse Rate (60-100 beats/min) 91 90 [Evaluation] -Activity Tolerance Fair Fair -Rating of Perceived Dyspnea (PD) +3 Moderate +2 Mild, Some Difficulty, But Difficulty, Can Continue Noticeable to the Observer -Rate of Perceived Exertion (PE) 13 Somewhat 9 Very light Query Text:Click the Protocol Button Hard to View the RPE Scale [Exercise] -Ambulation Distance (feet) 40 40 -Ambulation Distance (meters) 12.19 12.19 [Comments] -Home Oxygen Evaluation Comments 2l/m pt remains 3l/m with at 87% exertion able increased to 3l to keith. room /m air at rest, unable to determine needs at noc. [Charges] -Treatment Charges O2 Evaluation - Inpatient
--- NOTE | 2022-11-20 11:45 | PCRCNOTE ---
Faxed updated home o2 order, notes, face sheet and home o2 evaluation to [facility].
== END 2022-11-19 13:40 | disposition home or self-care (01) | DRG 140 ==
LOC: ANHIMU 11-14 13:19 → ANH3MEDSUR 11-15 02:06
PROVIDERS: Nurse Practitioner; Admitting Provider Internal Medicine; PCP Internal Medicine; Visit Provider Internal Medicine Critical Care Medicine
DX: J44.1 Chronic obstructive pulmonary disease with (acute) exacerbation (principal); J96.21 Acute and chronic respiratory failure with hypoxia; I50.33 Acute on chronic diastolic (congestive) heart failure; J96.22 Acute and chronic respiratory failure with hypercapnia; Z20.822 Contact with and (suspected) exposure to COVID-19; F17.210 Nicotine dependence, cigarettes, uncomplicated; Z99.81 Dependence on supplemental oxygen; Z90.49 Acquired absence of other specified parts of digestive tract
CPT/HCPCS: 36415; 71045; 80048; 80053; 82948; 83036; 83605; 83735; 83880; 84100; 85025; 87070; 87205; 87637; 94618; 94640; 96365; 96367; 96372; 96374; 96375; 96376; A9270; G0378; G0379; J0456; J0696; J1650; J1815; J1940; J2920; J2930

== ENCOUNTER 2023-01-10 09:22 | Outpatient (CLI) | payer OTHER, SELFPAY ==
--- NOTE | ~2023-01-10 | CT_ITS ---
EXAMINATION: CT lung screening DATE: 01/10/2023 09:55 INDICATION: Lung cancer screening. TECHNIQUE: Computed tomography (CT) of the chest was performed without intravenous contrast. The dose -length product was 89.60 mGy-cm. Automated exposure control and iterative reconstruction technique w ere employed. COMPARISON: CT dated 08/28/2018 FINDINGS: Heart size normal. No significant pleural or pericardial effusion. No thoracic lymphadenopa thy. Mild atherosclerosis. Upper abdomen is unremarkable. There is emphysema. There is right middle l obe atelectasis/scarring. Mild thoracic spondylosis. No acute osseous abnormality. No suspicious pulmonary nodules or masses. Nodule in the right lower lo be seen on prior examination not appreciated on the current study. IMPRESSION: 1. Lung-RADS category 1: Negative. Continue annual screening with noncontrast low-dose chest CT in 12 months. Reviewed, dictated and finalized at location L. IMPRESSION: 1. Lung-RADS category 1: Negative. Continue annual screening with noncontrast l ow-dose chest CT in 12 months.
[2023-01-10 10:00] VITALS: PULSE 80; O2SAT 94
[2023-01-10 10:05] VITALS: PULSE 94; O2SAT 94
[2023-01-10 10:10] VITALS: PULSE 92; O2SAT 93
--- NOTE | 2023-01-10 10:23 | HOMEO2EVAL ---
Evaluation was performed at [facility] Home Oxygen Evaluation RC: Home Oxygen (O2) Evaluation Start: 01/10/23 10:13 Freq: Status: Active Protocol: RPE Activity Type Activity Date Activity User E-sign Co-sign Detail Recorded Client Recorded Date Recorded By Document 01/10/23 10:00 [id number] 01/10/23 10:22 CH Document 01/10/23 10:05 [id number] 01/10/23 10:22 CH Document 01/10/23 10:10 [id number] 01/10/23 10:22 01/10/23 01/10/23 01/10/23 10:00 10:05 10:10 Home O2 Evaluation [Oxygen] -Test Phase Resting Exercise Exercise -Oxygen Delivery Room Air Room Air Room Air [Pulse Oximetry] -Pulse Oximetry (90-100 %) 94 94 93 [Pulse Rate] -Pulse Rate (60-100 beats/min) 80 94 92 [Evaluation] -Activity Tolerance Good Good Good -Rating of Perceived Dyspnea (PD) +1 Mild, +1 Mild, Noticeable to Noticeable to the Participant the Participant but Not to an but Not to an Observer Observer -Rate of Perceived Exertion (PE) 7 7 Query Text:Click the Protocol Button to View the RPE Scale [Exercise] -Ambulation Distance (feet) 200 150 -Ambulation Distance (meters) 60.95 45.71 [Comments] -Home Oxygen Evaluation Comments will begin home will continue walk ended. O2 walk walk. patient oxygen evaluation. saturations were 93% heart rate 92 with no issues. [Charges] -Treatment Charges O2 Evaluation - Outpatient
== END 2023-01-10 09:23 | disposition home or self-care (01) ==
LOC: CHSIMG 09:24
PROVIDERS: PCP Internal Medicine; Visit Provider Nurse Practitioner Family
DX: Z12.2 Encounter for screening for malignant neoplasm of respiratory organs (principal); J96.10 Chronic respiratory failure, unspecified whether with hypoxia or hypercapnia; Z87.891 Personal history of nicotine dependence
CPT/HCPCS: 71271; 94618

== ENCOUNTER 2024-05-27 16:56 | Outpatient (CLI) | payer MEDICARE, SELFPAY ==
[2024-05-27 17:22] LABS: Base Excess ABG 3.5 mmol/L (0-2); Device ROOM AIR; HCO3 ABG 29.4 mmol/L (23-29); Modified Allen's Test Pass; Oxygen Saturation ABG 82.1 % (95-97); Oxyhemoglobin 76.4 % (94-100); PCO2 ABG 48.5 mmHg (35-45); PO2 ABG 41.9 mmHg (80-90); Site Drawn LEFT RADIAL
[2024-05-27 17:28] LABS: Hematocrit 55.6 % (35.0-42.0); Hemoglobin 17.4 g/dL (11.7-13.8); Mean Corpuscular HGB Conc 31.3 g/dL (32-36); Mean Corpuscular Hemoglobin 31.2 pg (27.0-31.0); Mean Corpuscular Volume 99.6 fL (78.0-102.0); Mean Platelet Volume 10.4 fl (9.2-11.8); Platelet Count Result 256 K/mm3 (150-420); Red Blood Count 5.58 M/mm3 (4.20-5.40); Red Cell Distribution Width 13.2 % (11.6-14.4)
[2024-05-27 17:30] LABS: Appearance Urine Clear (Clear); Bilirubin Urine 1+ (Negative); Blood Urine Trace-intact (Negative); Glucose Urine UA 2+ (Negative); Ketones Urine Negative (Negative); Leukocyte Esterase Ur Negative (Negative); Nitrate Urine Negative (Negative); Protein Urine 3+ (Negative); Specific Grav Ur >= 1.030 (1.010-1.020); pH Urine 6.5 (5.0-8.0)
[2024-05-27 17:38] LABS: D Dimer 0.44 mg/L (0.19-0.50)
[2024-05-27 17:46] LABS: Alanine Aminotransferase 49 U/L (14-59); Albumin Level 3.6 g/dL (3.4-5.0); Alkaline Phosphatase 90 U/L (46-116); Anion Gap 4 mmol/L (4-12); Aspartate Amino Transferase 19 U/L (15-37); Bilirubin,Total 0.6 mg/dL (0.00-1.00); Blood Urea Nitrogen 14 mg/dL (7-18); Carbon Dioxide 33 mmol/L (21-32); Chloride 104 mmol/L (98-108); Estimated Glomerular Filt Rate > 60; Glucose 192 mg/dL (70-99); Osmolality Calculated 297 mOsm/kg (285-295); Potassium 4.6 mmol/L (3.5-5.1); Sodium 141 mmol/L (136-145); Total Protein 7.3 g/dL (6.4-8.2)
[2024-05-27 17:56] LABS: Add Urine Microscopic? YES; Color Urine Dark Orange (Yellow)
[2024-05-27 17:57] LABS: Bacteria Urine 1+ /hpf; RBC Urine 0-2 /hpf (0-2); Squamous Epithelial Cell Urine Few /hpf (Few); WBC Urine None seen /hpf (0-3)
--- OUTSIDE RECORDS SUMMARY | 2024-05-27 17:58 | XMS_ITS | Clinical Summary ---
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 Name Role Phone Unavailable Primary Care Provider Unavailabl e Social History Tobacco Use Types Packs/Day Years Used Date Smoking Tobacco: Never Assessed Comments Unknown Sex and Gender Information Value Date Recorded Sex Assigned at Not on file Legal Sex Female 9:13 PM CDT Gender Identity Not on file Sexual Orientation Not on file Plan of Treatment Health Maintenance Due Date Last Done Comments Cervical Cancer Screening Pa p Smear (Age 30 to 64) Every 3 Years 1959 Colorectal Cancer Screening Colonoscopy (10 Years) 1959 Annual Physical 1962 Hepatitis C 1977 DTaP, Tdap and Td Vaccines ( 1 - Tdap) 1978 Cervical Cancer Screening Pa p with HPV Testing (Age 30 to 64) Every 5 Years 1989 Cervical Cancer Screening with HPV 1989 Mammogram Screening 1999 Zoster Vaccines (1 of 2) 2009 COVID-19 Vaccine (2023-2 5 season) 2023 Influenza Adult (#1) 2023 Dexa Scan (General) 02/22/2024 Pneumococcal Vaccine: 65+ Ye ars (1 of 1 - PCV) 02/22/2024 RSV Immunization or 60+ Years (1 - 1-dose 75+ series) 2034 Meningococcal B Vaccine Aged Out No l onger eligible based on patient's age to complete this topic Meningococcal Vaccine Aged Out No justus fede eligible based on patient's age to complete this topic Pneumococcal Vaccine: Pediat rics (0 to 5 Years) and At-Risk Patients (6 to 64 Years) Aged Out No longer eligible b ased on patient's age to complete this topic RSV Immunizations Under 20 Months Aged Out No longer eligible based on patient's age to complete this topic
[2024-05-29 11:08] LABS: Hemoglobin A1C 9.4 % (<5.7)
== END 2024-05-27 16:57 | disposition home or self-care (01) ==
LOC: CHSLAB 16:58
PROVIDERS: PCP Internal Medicine; Visit Provider Internal Medicine
DX: R73.09 Other abnormal glucose (principal); J96.90 Respiratory failure, unspecified, unspecified whether with hypoxia or hypercapnia
CPT/HCPCS: 36415; 36600; 80053; 81001; 82805; 83036; 85027; 85380

== ENCOUNTER 2024-06-01 12:16 | Outpatient (CLI) | payer MEDICARE, SELFPAY ==
--- NOTE | ~2024-06-01 | US_ITS ---
EXAMINATION: US art doppler w press LE BI DATE: 06/01/2024 13:16 INDICATION: Peripheral arterial occlusive disease TECHNIQUE: Segmental pressures and plethysmographic and Doppler waveforms of the brachial and lower e xtremity arteries were obtained. COMPARISON: None. FINDINGS: Right and left brachial artery pressures of 150 mm Hg and 142 mm Hg, respectively, are concordant (no rmal difference <= 30 mmHg). The right ankle-brachial index (RAIN) is 1.17 (normal >= 0.9-1). The right great toe-brachial index (T BI) is 0.85 (normal >= 0.6-0.8). Arterial waveforms are triphasic at the right common femoral and pos terior tibial arteries and biphasic at the right popliteal and dorsalis pedis arteries with brisk sys tolic upstrokes throughout. The left RAIN is 1.14. The left TBI is 1.01. Arterial waveforms are triphasic at the left posterior ti bial artery and biphasic at the left common femoral, popliteal and dorsalis pedis arteries with brisk systolic upstrokes throughout. IMPRESSION: 1. Normal RAIN's and TBI's bilaterally. No significant arterial occlusive disease. Reviewed, dictated and finalized at location A. IMPRESSION: 1. Normal RAIN's and TBI's bilaterally. No significant arterial occlusive diseas e.
--- NOTE | ~2024-06-01 | US_ITS ---
EXAMINATION: US venous doppler [facility] DATE: 06/01/2024 13:16 INDICATION: DVT suspected clinically TECHNIQUE: Grayscale ultrasound images without and with compression and Doppler ultrasound images of the bilateral lower extremity veins were obtained. COMPARISON: None. FINDINGS: The visualized portions of right common femoral vein, profunda (deep) femoral vein, femoral vein, pop liteal vein, peroneal veins, posterior tibial veins, and greater saphenous vein outflow are patent. The visualized portions of left common femoral vein, profunda femoral vein, femoral vein, popliteal v ein, peroneal veins, posterior tibial veins, and greater saphenous vein outflow are patent. IMPRESSION: 1. No deep venous thrombosis within the bilateral lower extremities, as detailed above. Reviewed, dictated and finalized at location A. IMPRESSION: 1. No deep venous thrombosis within the bilateral lower extremities, as detail ed above.
--- OUTSIDE RECORDS SUMMARY | 2024-06-01 14:39 | XMS_ITS | Clinical Summary ---
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
== END 2024-06-01 12:17 | disposition home or self-care (01) ==
PROVIDERS: PCP Internal Medicine; Visit Provider Internal Medicine
DX: J96.90 Respiratory failure, unspecified, unspecified whether with hypoxia or hypercapnia (principal); I73.9 Peripheral vascular disease, unspecified; M79.89 Other specified soft tissue disorders
CPT/HCPCS: 93923; 93970